=== PATIENT | male | born 1940 ===

== ENCOUNTER 2020-07-04 09:15 | Outpatient (REF) | payer MEDICARE, SELFPAY ==
[2020-07-04 10:59] LABS: Cholesterol 260 mg/dL; HDL Cholesterol 57 mg/dL; LDL Cholesterol Calculated 174 mg/dl; Triglycerides 149 mg/dL
== END 2020-07-04 09:16 | disposition home or self-care (01) ==
LOC: HO.LAB 09:15
PROVIDERS: PCP Internal Medicine; Visit Provider Internal Medicine
DX: E78.5 Hyperlipidemia, unspecified (principal)
CPT/HCPCS: 80061

== ENCOUNTER 2020-09-29 08:11 | Outpatient (REF) | payer MEDICARE, SELFPAY ==
[2020-09-29 09:43] LABS: Cholesterol 212 mg/dL; HDL Cholesterol 57 mg/dL; LDL Cholesterol Calculated 130 mg/dl; Triglycerides 126 mg/dL
== END 2020-09-29 08:12 | disposition home or self-care (01) ==
LOC: HO.LAB 08:11
PROVIDERS: PCP Internal Medicine; Visit Provider Internal Medicine
DX: E11.9 Type 2 diabetes mellitus without complications (principal)
CPT/HCPCS: 36415; 80061

== ENCOUNTER 2021-01-01 08:22 | Outpatient (REF) | payer MEDICARE, SELFPAY ==
[2021-01-01 09:36] LABS: Cholesterol 252 mg/dL; HDL Cholesterol 61 mg/dL; LDL Cholesterol Calculated 163 mg/dl; Triglycerides 144 mg/dL
== END 2021-01-01 08:23 | disposition home or self-care (01) ==
LOC: HO.LAB 08:22
PROVIDERS: PCP Internal Medicine; Visit Provider Internal Medicine
DX: E11.9 Type 2 diabetes mellitus without complications (principal)
CPT/HCPCS: 36415; 80061

== ENCOUNTER 2021-04-03 11:03 | Outpatient (REF) | payer MEDICARE, SELFPAY ==
[2021-04-03 12:25] LABS: Cholesterol 210 mg/dL; HDL Cholesterol 54 mg/dL; LDL Cholesterol Calculated 127 mg/dl; Triglycerides 146 mg/dL
== END 2021-04-03 11:04 | disposition home or self-care (01) ==
LOC: HO.LAB 11:03
PROVIDERS: PCP Internal Medicine; Visit Provider Internal Medicine
DX: E11.9 Type 2 diabetes mellitus without complications (principal)
CPT/HCPCS: 36415; 80061

== ENCOUNTER 2021-06-19 09:58 | Outpatient (REF) | payer MEDICARE, SELFPAY ==
[2021-06-19 11:29] LABS: Cholesterol 212 mg/dL; HDL Cholesterol 49 mg/dL; LDL Cholesterol Calculated 136 mg/dl; Triglycerides 135 mg/dL
== END 2021-06-19 09:59 | disposition home or self-care (01) ==
LOC: HO.LAB 09:58
PROVIDERS: PCP Internal Medicine; Visit Provider Internal Medicine
DX: E11.9 Type 2 diabetes mellitus without complications (principal)
CPT/HCPCS: 36415; 80061

== ENCOUNTER 2021-09-25 09:03 | Outpatient (REF) | payer MEDICARE, SELFPAY ==
[2021-09-25 10:32] LABS: Cholesterol 269 mg/dL; HDL Cholesterol 56 mg/dL; LDL Cholesterol Calculated 182 mg/dl; Triglycerides 158 mg/dL
== END 2021-09-25 09:04 | disposition home or self-care (01) ==
LOC: HO.LAB 09:03
PROVIDERS: PCP Internal Medicine; Visit Provider Internal Medicine
DX: E11.9 Type 2 diabetes mellitus without complications (principal)
CPT/HCPCS: 36415; 80061

== ENCOUNTER 2022-04-05 09:06 | Outpatient (REF) | payer MEDICARE, SELFPAY ==
[2022-04-05 09:22] LABS: MANUAL DIFF FLAG NO
[2022-04-05 09:45] LABS: Basophils Percent Auto 0.6 % (0-2); Eosinophils Absolute Auto 0.2 X10*3/uL (0.0-0.4); Eosinophils Percent Auto 3.6 % (0-4); Hematocrit 42.2 % (42.0-52.0); Hemoglobin 14.1 g/dl (14.0-18.0); Imm Gran Abs Auto 0.02 X10*3/uL (0.00-0.03); Imm Gran Pct Auto 0.4 % (0.0-0.4); Lymphocytes Percent Auto 37.9 % (20-40); Mean Corpuscular HGB Conc 33.4 g/dl (31.0-36.0); Mean Corpuscular Hemoglobin 32.2 pg (27.0-33.0); Mean Corpuscular Volume 96.3 fL (80.0-98.0); Monocytes Absolute Auto 0.4 X10*3/uL (0.1-1.2); Monocytes Percent Auto 6.8 % (2-11); Neutrophils Absolute Auto 2.7 x10*3/uL (2.0-8.3); Neutrophils Percent Auto 50.7 % (45-73); Platelet Count 293 X10*3/uL (160-400); Red Blood Count 4.38 X10*6/uL (4.60-5.80); Red Cell Distribution Width 12.5 % (11.0-16.0); White Blood Count 5.3 X10*3/uL (4.8-10.8)
[2022-04-05 10:14] LABS: Alanine Aminotransferase 18 U/L (0-40); Albumin Level 4.2 g/dL (3.5-5.0); Alkaline Phosphatase 40 U/L (39-117); Anion Gap 13 (12-20); Aspartate Amino Transferase 23 U/L (5-37); Bilirubin Total 0.7 mg/dL (0.0-1.0); Blood Urea Nitrogen 14 mg/dL (9-16); Calcium 8.8 mg/dL (8.4-10.2); Carbon Dioxide 25 mmol/L (22-29); Chloride 106 mmol/L (96-108); Cholesterol 203 mg/dL; Estimated Glomerular Filt Rate > 60; Glucose Fasting 92 mg/dL (60-99); HDL Cholesterol 38 mg/dL; LDL Cholesterol Calculated 137 mg/dl; Potassium 4.5 mmol/L (3.3-5.1); Sodium 139 mmol/L (135-145); Total Protein 6.9 g/dL (6.5-8.0); Triglycerides 143 mg/dL
== END 2022-04-05 09:07 | disposition home or self-care (01) ==
LOC: HO.LAB 09:06
PROVIDERS: PCP Internal Medicine; Visit Provider Internal Medicine
DX: Z00.00 Encounter for general adult medical examination without abnormal findings (principal); Z13.0 Encounter for screening for diseases of the blood and blood-forming organs and certain disorders involving the immune mechanism
CPT/HCPCS: 36415; 80053; 80061; 85025

== ENCOUNTER 2022-08-02 08:36 | Outpatient (REF) | payer MEDICARE, SELFPAY ==
[2022-08-02 09:28] LABS: Cholesterol 229 mg/dL; HDL Cholesterol 48 mg/dL; LDL Cholesterol Calculated 151 mg/dl; Triglycerides 151 mg/dL
== END 2022-08-02 08:37 | disposition home or self-care (01) ==
LOC: HO.LAB 08:36
PROVIDERS: PCP Internal Medicine; Visit Provider Internal Medicine
DX: E78.5 Hyperlipidemia, unspecified (principal)
CPT/HCPCS: 36415; 80061

== ENCOUNTER 2022-10-22 08:08 | Outpatient (REF) | payer MEDICARE, SELFPAY ==
[2022-10-22 09:08] LABS: Cholesterol 258 mg/dL; HDL Cholesterol 49 mg/dL; LDL Cholesterol Calculated 181 mg/dl; Triglycerides 140 mg/dL
== END 2022-10-22 08:09 | disposition home or self-care (01) ==
LOC: HO.LAB 08:08
PROVIDERS: PCP Internal Medicine; Visit Provider Internal Medicine
DX: E78.5 Hyperlipidemia, unspecified (principal)
CPT/HCPCS: 36415; 80061

== ENCOUNTER 2022-12-04 09:49 | Day surgery (SDC) | payer OTHER, SELFPAY ==
--- NOTE | 2022-12-03 10:43 | HO.ANESPROP2 ---
Documented by User: Alise Curiel NP 12/03/22 10:44 HPI - Anesthesia Eval Consult details Narrative: 82yo M for Colonoscopy PMFSH Active Problems Active Problems: All Active Problems (Updated 12/03/22 @ 08:40 by Reina Rodriguez) Hyperlipidemia (Acute) Encounter for annual wellness visit (AWV) in Medicare patient (Acute) Past Medical History Medical History (Updated 12/03/22 @ 08:40 by Reina Rodriguez) Kidney stones Family History Family History Father Hypertension Parkinsons disease Mother No problems noted. Surgical History Surgical History (Updated 12/03/22 @ 08:40 by Reina Rodriguez) Corneal transplant status H/O colonoscopy History of tonsillectomy Social History Social History Housing: House Alcohol intake: current Alcohol intake frequency: a few times a week Patient Tobacco Use Status: Never used Tobacco e-Cigarette/Vaping Use: Never Used Second Hand Smoke Exposure: No Use of substances other than those prescribed or required for medical reasons: No Are you DNR?: No Advance Directives: No Advance Directives Information Provided: Yes service: No Current occupational status: retired Cognitive needs: No Hearing needs: No Vision needs: Yes (contacts) Meds Allergies Allergy/AdvReac Type Severity Reaction Status Date / Time brimonidine Allergy Unknown Swelling Verified 12/04/22 10:27 lovastatin Allergy Unknown Muscle Verified 12/04/22 10:27 cramps rosuvastatin Allergy Unknown Muscle Verified 12/04/22 10:27 cramps Home Medications Medication Instructions Recorded Confirmed Last Taken Type dorzolamide 22.3 mg-timolol 6.8 1 drp ophthalmic (eye) BID 07/12/20 12/04/22 12/04/22 06:00 History mg/mL eye drops fluorometholone 0.25 % eye 1 drp ophthalmic-Right Q6H 07/12/20 12/04/22 12/04/22 06:00 History drops,suspension (FML Forte) tafluprost (PF) 0.0015 % eye drops 1 drp ophthalmic (eye) DAILY 07/12/20 12/04/22 12/04/22 06:00 History in a dropperette cyclosporine 0.05 % eye drops 1 drp ophthalmic (eye) Q12H 10/05/20 12/04/22 12/04/22 06:00 History aspirin 81 mg tablet,delayed 81 mg PO DAILY 04/08/22 12/04/22 11/27/22 History release (Adult Low Dose Aspirin) triamcinolone acetonide 0.1 % 1 appl topical BID 07/22/22 12/04/22 Unknown History topical ointment Exam Exam Date and Time: December 03, 2022 1043 Pertinent Lab Results Pertinent Lab Results: Laboratory Tests 04/05/22 04/05/22 09:21 09:21 WBC 5.3 Hgb 14.1 Hct 42.2 Plt Count 293 Sodium 139 Potassium 4.5 Chloride 106 Carbon Dioxide 25 BUN 14 Creatinine 1.16 Assessment and Plan Assessment Anesthesia Assessment: Chart Reviewed Documented by User: Michael Sunshine MD 12/04/22 16:19 [facility] Past Medical History Medical History (Updated 12/03/22 @ 08:40 by Reina Rodriguez) Kidney stones Functional capacity: independent ambulation Family History Family History Father Hypertension Parkinsons disease Mother No problems noted. Family history of problems with anesthesia: No Surgical History Surgical History (Updated 12/03/22 @ 08:40 by Reina Rodriguez) Corneal transplant status H/O colonoscopy History of tonsillectomy History of Problems with Anesthesia: No Social History Social History Housing: House Alcohol intake: current Alcohol intake frequency: a few times a week Patient Tobacco Use Status: Never used Tobacco e-Cigarette/Vaping Use: Never Used Second Hand Smoke Exposure: No Use of substances other than those prescribed or required for medical reasons: No Are you DNR?: No Advance Directives: No Advance Directives Information Provided: Yes service: No Current occupational status: retired Cognitive needs: No Hearing needs: No Vision needs: Yes (contacts) Meds Allergies Allergy/AdvReac Type Severity Reaction Status Date / Time brimonidine Allergy Unknown Swelling Verified 12/04/22 10:27 lovastatin Allergy Unknown Muscle Verified 12/04/22 10:27 cramps rosuvastatin Allergy Unknown Muscle Verified 12/04/22 10:27 cramps Home Medications Medication Instructions Recorded Confirmed Last Taken Type dorzolamide 22.3 mg-timolol 6.8 1 drp ophthalmic (eye) BID 07/12/20 12/04/22 12/04/22 06:00 History mg/mL eye drops fluorometholone 0.25 % eye 1 drp ophthalmic-Right Q6H 07/12/20 12/04/22 12/04/22 06:00 History drops,suspension (FML Forte) tafluprost (PF) 0.0015 % eye drops 1 drp ophthalmic (eye) DAILY 07/12/20 12/04/22 12/04/22 06:00 History in a dropperette cyclosporine 0.05 % eye drops 1 drp ophthalmic (eye) Q12H 10/05/20 12/04/22 12/04/22 06:00 History aspirin 81 mg tablet,delayed 81 mg PO DAILY 04/08/22 12/04/22 11/27/22 History release (Adult Low Dose Aspirin) triamcinolone acetonide 0.1 % 1 appl topical BID 07/22/22 12/04/22 Unknown History topical ointment Exam Airway Mallampati Class: III TM Dist: >3cm Neck ROM: Full Loose/Missing/Broken Teeth: Yes (Chipped/stained front upper ) Heart: S1,S2 Lungs: b/l breath sounds Assessment and Plan Assessment Anesthesia Assessment: Anesthesia Plan Discussed Final Anesthetic Review Family History of Problems with Anesthesia: No History of Problems with Anesthesia: No NPO: Yes ASA Class: II Final Preanesthetic Review: Meds/Allgs Chart Reviewed, Consent Obtained/Reviewed and Anes Risks/Benef Reviewed Patient Risk: Intermediate Procedure Risk: Intermediate Anesthetic Plan Anesthetic Plan: MAC: Disposition: Standard PACU
[2022-12-04 10:32] VITALS: BMI 27.9
[2022-12-04 10:39] VITALS: BP 189/92; PULSE 67; RESP 16; TEMP 36.8; O2SAT 100
[2022-12-04] MEDS: Lactated Ringers 1,000 ML 100 ML IVCONT (10:51)
--- NOTE | 2022-12-04 10:55 | PC.NURSE ---
Patient arrived. Wearing two contact lenses that he is requesting not to remove. Patient states I fall asleep with them sometimes with no issues . Dr. Sunshine at bedside. Okay per him for patient to wear lenses into OR. OR nurse made aware.
[2022-12-04 12:47] VITALS: BP 126/68; PULSE 61; RESP 16; TEMP 36.6; O2SAT 98
--- NOTE | 2022-12-04 12:48 | P.BOP_ITS ---
Brief Operative Note Date of Service: 12/04/22 Pre-op diagnosis: Screening Post-op diagnosis: other (Polyps) Procedure: Colonoscopy to the cecum and TI with hot snare polypectomy x 2 Surgeon: Ez Jimenez Anesthesia: MAC Was an Petroleum Production Engineer used for this Procedure?: No Estimated blood loss (mL): 0 Pathology: none sent Condition: stable Disposition: PACU
[2022-12-04 13:02] VITALS: BP 138/75; PULSE 52; RESP 16; TEMP 36.6; O2SAT 98
--- NOTE | 2022-12-04 23:44 | OP_ITS ---
SURGEON: Ez Jimenez MD PREOPERATIVE DIAGNOSIS: POSTOPERATIVE DIAGNOSIS: PROCEDURE PERFORMED: Colonoscopy to the cecum and terminal ileum with hot snare polypectomy x 2. ESTIMATED BLOOD LOSS: COMPLICATIONS: ANESTHESIA: Monitored anesthesia care. ASSISTANTS: SPECIMENS: PREOPERATIVE DIAGNOSES: Personal history of tubular adenoma of the colon and colorectal cancer screening. POSTOPERATIVE DIAGNOSES: Personal history of tubular adenoma of the colon, colorectal cancer screening, small colon polyps, diverticulosis, and internal hemorrhoids. INDICATION: The patient presents for evaluation of colorectal cancer screening and personal history of tubular adenoma of colon. Full consent has been obtained from him for this, including risks of bleeding and perforation. DESCRIPTION OF PROCEDURE: The patient was placed in the left lateral decubitus position. The digital rectal exam revealed no abnormalities. The Olympus videopediatric colonoscope was entered into the rectum and advanced easily to the cecum. Once in the cecum, I did identify normal-appearing cecal pouch with appendiceal orifice and a normal-appearing ileocecal valve. The terminal ileum was cannulated and appeared normal. The scope was withdrawn back in the colon. The entire cecum and ileocecal valve appeared normal. The scope was slowly withdrawn assessing all mucosal surfaces carefully. Preparation was excellent. In the proximal transverse colon, there were two flat polyps. One was approximately 5 mm in diameter and the other was approximately 8 mm in diameter. These were both removed by hot snare polypectomy, but specimens were not recovered. However, both polypectomy sites appeared clean, without any sign of residual polyp nor bleeding. I did not visualize any other polyps, colitis, nor angiodysplasia. There was a mild amount of sigmoid diverticulosis. In the rectum, the scope was retroflexed visualizing internal hemorrhoids, but no other pathology. The rectal mucosa appeared normal. The scope was straightened and withdrawn from the patient. He tolerated the procedure well and was returned to the recovery area in stable condition. IMPRESSION: 1. Small colon polyps. 2. Diverticulosis. 3. Internal hemorrhoids. PLAN: Given his age and these minimal findings, I do not think he will need any further screening colonoscopies. He was advised not to use any aspirin and NSAIDs for 1 week. He will otherwise see me on a p.r.n. basis. MD ALEJANDRA Dyson/GAGANDEEP / [id number] [facility]ITALLisandro
== END 2022-12-04 13:15 | disposition home or self-care (01) ==
PROVIDERS: PCP Internal Medicine; Visit Provider Internal Medicine
PROC: 0DJD8ZZ Inspection of Lower Intestinal Tract, Via Natural or Artificial Opening Endoscopic (ICD-10-PCS; CPT 45378; principal; 2022-12-04 11:40)
DX: Z12.11 Encounter for screening for malignant neoplasm of colon (principal); Z86.010 Personal history of colon polyps; K63.5 Polyp of colon; K57.30 Diverticulosis of large intestine without perforation or abscess without bleeding; K64.8 Other hemorrhoids; E78.5 Hyperlipidemia, unspecified; N20.0 Calculus of kidney; Z94.7 Corneal transplant status; Z79.82 Long term (current) use of aspirin; Z79.899 Other long term (current) drug therapy; Z86.16 Personal history of COVID-19
CPT/HCPCS: 45385

== ENCOUNTER 2023-01-24 08:27 | Outpatient (REF) | payer MEDICARE, SELFPAY ==
[2023-01-24 08:41] LABS: MANUAL DIFF FLAG NO
[2023-01-24 09:16] LABS: Basophils Percent Auto 0.6 % (0-2); Eosinophils Absolute Auto 0.2 X10*3/uL (0.0-0.4); Eosinophils Percent Auto 2.7 % (0-4); Hematocrit 44.9 % (42.0-52.0); Hemoglobin 15.1 g/dl (14.0-18.0); Imm Gran Abs Auto 0.04 X10*3/uL (0.00-0.03); Imm Gran Pct Auto 0.6 % (0.0-0.4); Lymphocytes Absolute Auto 2.1 X10*3/uL (1.2-4.9); Lymphocytes Percent Auto 31.8 % (20-40); Mean Corpuscular HGB Conc 33.6 g/dl (31.0-36.0); Mean Corpuscular Hemoglobin 32.4 pg (27.0-33.0); Mean Corpuscular Volume 96.4 fL (80.0-98.0); Mean Platelet Volume 11.1 fL (9.4-12.4); Monocytes Absolute Auto 0.4 X10*3/uL (0.1-1.2); Monocytes Percent Auto 5.9 % (2-11); Neutrophils Absolute Auto 3.8 x10*3/uL (2.0-8.3); Neutrophils Percent Auto 58.4 % (45-73); Platelet Count 288 X10*3/uL (160-400); Red Blood Count 4.66 X10*6/uL (4.60-5.80); Red Cell Distribution Width 12.5 % (11.0-16.0); White Blood Count 6.6 X10*3/uL (4.8-10.8)
[2023-01-24 09:51] LABS: Alanine Aminotransferase 22 U/L (0-40); Albumin Level 4.3 g/dL (3.5-5.0); Alkaline Phosphatase 37 U/L (39-117); Anion Gap 14 (12-20); Aspartate Amino Transferase 22 U/L (5-37); Bilirubin Total 0.6 mg/dL (0.0-1.0); Blood Urea Nitrogen 17 mg/dL (9-16); Calcium 9.3 mg/dL (8.4-10.2); Carbon Dioxide 25 mmol/L (22-29); Chloride 105 mmol/L (96-108); Cholesterol 233 mg/dL; Estimated Glomerular Filt Rate 57; Glucose Fasting 108 mg/dL (60-99); HDL Cholesterol 52 mg/dL; LDL Cholesterol Calculated 155 mg/dl; Potassium 4.5 mmol/L (3.3-5.1); Sodium 139 mmol/L (135-145); Total Protein 6.8 g/dL (6.5-8.0); Triglycerides 133 mg/dL
== END 2023-01-24 08:28 | disposition home or self-care (01) ==
LOC: HO.LAB 08:27
PROVIDERS: PCP Internal Medicine; Visit Provider Internal Medicine
DX: N28.9 Disorder of kidney and ureter, unspecified (principal); E78.5 Hyperlipidemia, unspecified; D64.9 Anemia, unspecified
CPT/HCPCS: 36415; 80053; 80061; 85025

== ENCOUNTER 2023-02-25 08:25 | Outpatient (REF) | payer MEDICARE, SELFPAY ==
[2023-02-25 09:32] LABS: Cholesterol 199 mg/dL; HDL Cholesterol 41 mg/dL; LDL Cholesterol Calculated 133 mg/dl; Triglycerides 127 mg/dL
== END 2023-02-25 08:26 | disposition home or self-care (01) ==
LOC: HO.LAB 08:25
PROVIDERS: PCP Internal Medicine; Visit Provider Internal Medicine
DX: E78.5 Hyperlipidemia, unspecified (principal)
CPT/HCPCS: 36415; 80061

== ENCOUNTER 2023-04-30 09:45 | Outpatient (AMB) | payer MEDICARE, SELFPAY ==
--- NOTE | 2023-04-30 09:51 | A.OFFPC_ITS ---
Vital Signs 04/30/23 09:52 Height 5 ft 6 in Weight 178 lb 2 oz BMI 28.7 BP 118/70 Blood Pressure Location Lt brachial Position Sitting Pulse 54 Pulse Source Pulse Oximeter Pulse Oximetry (%) 96 Oxygen Delivery Method Room Air Intake Visit Reasons: 3 month f/u Intake Note: Patient is here to follow up on Hyperlipidemia. Animal Care Technician Required: No Heavy Machinery Assembler: Not Required per policy Accompanied by: Self / Same As Patient Allergies brimonidine Allergy (Unknown, Verified 04/30/23 09:51) Swelling lovastatin Allergy (Unknown, Verified 04/30/23 09:51) Muscle cramps rosuvastatin Allergy (Unknown, Verified 04/30/23 09:51) Muscle cramps Medication List - Last Reconciled 04/30/23 by Eliseo Robledo MD aspirin (Adult Low Dose Aspirin) 81 mg PO DAILY cyclosporine 0.05% 1 drp ophthalmic (eye) Q12H dorzolamide-timolol 22.3-6.8 mg/mL 1 drp ophthalmic (eye) BID fenofibrate 160 mg PO DAILY fluorometholone 0.25% (FML Forte) 1 drp ophthalmic-Right Q6H tafluprost (PF) 1 drp ophthalmic (eye) DAILY triamcinolone acetonide 0.1% 1 appl topical BID Tobacco use date assessed: 04/30/23 Fall risk assessment: No Falls in past year Last assessed Fall Risk: 04/30/23 Dental Screening Dental Screen Date: 04/30/23 Did you have a dental visit in the last 12 months?: Yes Did you have a dental problem in the last 6 months where you did not have access to dental care?: No Was dental information given to patient?: Patient has dentist HPI 3 month f/u HPI Details hyperlipidemia on rx; [facility] Medical History (Updated 12/03/22 @ 08:40 by Reina Rodriguez) Kidney stones Surgical History Corneal transplant status H/O colonoscopy History of tonsillectomy Family History Father Hypertension Parkinsons disease Mother No problems noted. Social History Housing: House Alcohol intake: current Alcohol intake frequency: a few times a week Patient Tobacco Use Status: Never used Tobacco e-Cigarette/Vaping Use: Never Used Second Hand Smoke Exposure: No service: No Current occupational status: retired Cognitive needs: No Hearing needs: No Vision needs: Yes (contacts) Questionnaire PHQ-9 Over the last 2 weeks, how often have you been bothered by any of the following problems? Depression Screening Interpretation: Negative Source: Developed by Drs. Ez Martinez, Nanci Choudhury, Gilberto Becerril and colleagues, with an educational сергей from [employer]. Thrive Questionnaire Date Thrive assessed: 10/23/22 Currently or been in a relationship where the following occur: no concerns reported AMBER-7 AMB Questionnaire AMBER-7 Date AMBER - 7 assessed: 10/23/22 Source: Developed by Drs. Ez Martinez, Nanci Choudhury, Gilberto Becerril and colleagues, with an educational сергей from [employer]. Review of Systems Const Denies chills, Denies headache(s) and Denies weight loss ENT Denies headache(s) Card Denies chest pain, Denies syncope, Denies irregular heart rhythm and Denies dyspnea Resp Denies chest congestion, Denies cough and Denies dyspnea GI Denies abdominal pain, Denies change in stool character, Denies nausea and Denies vomiting Musc Denies deformity and Denies joint swelling Neuro Denies syncope and Denies headache(s) Physical exam (Primary Care) Vital Signs: Last Vital Signs Pulse 54 04/30/23 09:52 BP 118/70 04/30/23 09:52 Pulse Ox 96 04/30/23 09:52 Oxygen Delivery Method Room Air 04/30/23 09:52 BMI result Body Mass Index 28.7 Tobacco/Smoking Status: Tobacco use Status Tobacco use date assessed 04/30/23 04/30/23 09:57 Patient Tobacco Use Status Never used Tobacco 04/30/23 09:57 Tobacco use type 04/05/21 11:01 e-Cigarette/Vaping Use Never Used 04/30/23 09:57 Depression Screening Interpretation: Negative Thrive Assessment: Date of Thrive Assessment Date Thrive assessed 10/23/22 04/30/23 09:57 Currently or been in a relationship where the following occur: no concerns reported Const General: cooperative, healthy appearing and comfortable Resp Effort & Inspection: normal respiratory effort Auscultation: clear to auscultation bilaterally Percussion: percussion normal Cardio Jugular venous distension: no JVD Rate: regular rate Rhythm: regular rhythm GI Inspection: Yes normal to inspection Assessment and Plan Assessment & Plan (1) Hyperlipidemia: Code(s): E78.5 - Hyperlipidemia, unspecified Plan: stable; same rx Orders: Orders Comprehensive [place]. Panel Fast Today N28.9 - Disorder of kidney and ureter, unspecified Lipid Panel Today E78.5 - Hyperlipidemia, unspecified Complete Blood Count Auto Diff Today D64.9 - Anemia, unspecified Coding Level of Care Code Est Pt Level 3 (27668) Diagnoses Hyperlipidemia E78.5
[2023-04-30 09:52] VITALS: BP 118/70; PULSE 54; O2SAT 96; BMI 28.7
== END 2023-04-30 10:21 | disposition home or self-care (01) ==
PROVIDERS: PCP Internal Medicine; Visit Provider Internal Medicine
DX: E78.5 Hyperlipidemia, unspecified (principal)
CPT/HCPCS: 99213

== ENCOUNTER 2023-08-19 08:15 | Outpatient (REF) | payer MEDICARE, SELFPAY ==
[2023-08-19 08:26] LABS: MANUAL DIFF FLAG NO
[2023-08-19 08:44] LABS: Basophils Absolute Auto 0.1 X10*3/uL (0.0-0.2); Basophils Percent Auto 0.7 % (0-2); Eosinophils Absolute Auto 0.2 X10*3/uL (0.0-0.4); Eosinophils Percent Auto 2.8 % (0-4); Hemoglobin 15.1 g/dl (14.0-18.0); Imm Gran Abs Auto 0.03 X10*3/uL (0.00-0.03); Imm Gran Pct Auto 0.4 % (0.0-0.4); Lymphocytes Absolute Auto 2.1 X10*3/uL (1.2-4.9); Mean Corpuscular HGB Conc 34.3 g/dl (31.0-36.0); Mean Corpuscular Hemoglobin 33.1 pg (27.0-33.0); Mean Corpuscular Volume 96.5 fL (80.0-98.0); Mean Platelet Volume 10.6 fL (9.4-12.4); Monocytes Absolute Auto 0.5 X10*3/uL (0.1-1.2); Monocytes Percent Auto 6.5 % (2-11); Neutrophils Absolute Auto 4.2 x10*3/uL (2.0-8.3); Neutrophils Percent Auto 59.6 % (45-73); Platelet Count 310 X10*3/uL (160-400); Red Blood Count 4.56 X10*6/uL (4.60-5.80); Red Cell Distribution Width 12.7 % (11.0-16.0); White Blood Count 7.1 X10*3/uL (4.8-10.8)
[2023-08-19 09:19] LABS: Alanine Aminotransferase 18 U/L (0-40); Albumin Level 4.1 g/dL (3.5-5.0); Alkaline Phosphatase 53 U/L (39-117); Anion Gap 12 (12-20); Aspartate Amino Transferase 21 U/L (5-37); Bilirubin Total 0.5 mg/dL (0.0-1.0); Blood Urea Nitrogen 15 mg/dL (9-16); Calcium 9.1 mg/dL (8.4-10.2); Carbon Dioxide 26 mmol/L (22-29); Chloride 105 mmol/L (96-108); Cholesterol 230 mg/dL (<200); Estimated Glomerular Filt Rate > 60; Glucose Fasting 117 mg/dL (60-99); HDL Cholesterol 43 mg/dL (>40); LDL Cholesterol Calculated 149 mg/dL (<100); Potassium 4.3 mmol/L (3.3-5.1); Sodium 139 mmol/L (135-145); Total Protein 7.2 g/dL (6.5-8.0); Triglycerides 193 mg/dL (<150)
== END 2023-08-19 08:16 | disposition home or self-care (01) ==
LOC: HO.LAB 08:15
PROVIDERS: PCP Internal Medicine; Visit Provider Internal Medicine
DX: E78.5 Hyperlipidemia, unspecified (principal); D64.9 Anemia, unspecified; N28.9 Disorder of kidney and ureter, unspecified
CPT/HCPCS: 36415; 80053; 80061; 85025

== ENCOUNTER 2023-08-25 11:35 | Outpatient (AMB) | payer MEDICARE, SELFPAY ==
[2023-08-25 11:36] VITALS: BP 140/90; PULSE 53; O2SAT 100; BMI 29.0
--- NOTE | 2023-08-25 11:36 | A.OFFPC_ITS ---
Vital Signs 08/25/23 11:36 Height 5 ft 6 in Weight 180 lb BMI 29.0 BP 140/90 H Blood Pressure Location Lt brachial Position Sitting Pulse 53 Pulse Source Pulse Oximeter Pulse Oximetry (%) 100 Oxygen Delivery Method Room Air Intake Visit Reasons: 3M Follow up Coil Winding Supervisor Required: No Nut Steamer: Not Required per policy Accompanied by: Self / Same As Patient Allergies brimonidine Allergy (Unknown, Verified 08/25/23 11:37) Swelling lovastatin Allergy (Unknown, Verified 08/25/23 11:37) Muscle cramps rosuvastatin Allergy (Unknown, Verified 08/25/23 11:37) Muscle cramps Medication List - Last Reconciled 08/25/23 by Eliseo Robledo MD aspirin (Adult Low Dose Aspirin) 81 mg PO DAILY cyclosporine 0.05% 1 drp ophthalmic (eye) Q12H dorzolamide-timolol 22.3-6.8 mg/mL 1 drp ophthalmic (eye) BID fenofibrate 160 mg PO DAILY fluorometholone 0.25% (FML Forte) 1 drp ophthalmic-Right Q6H tafluprost (PF) 0.0015% 1 drp ophthalmic (eye) DAILY triamcinolone acetonide 0.1% 1 appl topical BID Tobacco use date assessed: 04/30/23 Fall risk assessment: No Falls in past year Last assessed Fall Risk: 08/25/23 Dental Screening Dental Screen Date: 08/25/23 Did you have a dental visit in the last 12 months?: Yes Did you have a dental problem in the last 6 months where you did not have access to dental care?: No Was dental information given to patient?: Patient has dentist HPI 3M Follow up HPI Details hyperlip on rx; dietary indiscretion PFSH Medical History Kidney stones Surgical History H/O colonoscopy Corneal transplant status History of tonsillectomy Family History Father Hypertension Parkinsons disease Mother No problems noted. Social History Housing: House Alcohol intake: current Alcohol intake frequency: a few times a week Patient Tobacco Use Status: Never used Tobacco e-Cigarette/Vaping Use: Never Used Second Hand Smoke Exposure: No service: No Current occupational status: retired Cognitive needs: No Hearing needs: No Vision needs: Yes (contacts) Questionnaire Thrive Questionnaire Date Thrive assessed: 10/23/22 AMBER-7 AMB Questionnaire AMBER-7 Date AMBER - 7 assessed: 10/23/22 Source: Developed by Drs. Ez Martinez, Nanci Choudhury, Gilberto Becerril and colleagues, with an educational сергей from [employer]. Review of Systems Const Denies chills, Denies headache(s) and Denies weight loss ENT Denies headache(s) Card Denies chest pain, Denies syncope, Denies irregular heart rhythm and Denies dyspnea Resp Denies chest congestion, Denies cough and Denies dyspnea GI Denies abdominal pain, Denies change in stool character, Denies nausea and Denies vomiting Musc Denies deformity and Denies joint swelling Neuro Denies syncope and Denies headache(s) Physical exam (Primary Care) Vital Signs: Last Vital Signs Pulse 53 08/25/23 11:36 BP 140/90 H 08/25/23 11:36 Pulse Ox 100 08/25/23 11:36 Oxygen Delivery Method Room Air 08/25/23 11:36 BMI result Body Mass Index 29.0 Tobacco/Smoking Status: Tobacco use Status Tobacco use date assessed 04/30/23 08/25/23 11:37 Patient Tobacco Use Status Never used Tobacco 08/25/23 11:37 Tobacco use type 04/05/21 11:01 e-Cigarette/Vaping Use Never Used 08/25/23 11:37 Thrive Assessment: Date of Thrive Assessment Date Thrive assessed 10/23/22 08/25/23 11:37 Const General: cooperative, comfortable, no acute distress and alert Neck Neck: Yes no lymphadenopathy Thyroid: Thyroid normal Resp Effort & Inspection: normal respiratory effort Auscultation: clear to auscultation bilaterally Percussion: percussion normal Cardio Jugular venous distension: no JVD Palpation: normal PMI Rate: regular rate Rhythm: regular rhythm Heart sounds: S1 normal heart sound present and S2 normal heart sound present GI Inspection: Yes normal to inspection Palpation (GI): No hepatosplenomegaly present Skin General skin exam: no rashes or lesions noted Extrem General: Yes no clubbing, cyanosis or edema Assessment and Plan Assessment & Plan (1) Hyperlipidemia: Code(s): E78.5 - Hyperlipidemia, unspecified Plan: stable; same rx Orders: Orders Lipid Panel Today E78.5 - Hyperlipidemia, unspecified Coding Level of Care Code Est Pt Level 3 (48914) Diagnoses Hyperlipidemia E78.5
== END 2023-08-25 11:59 | disposition home or self-care (01) ==
PROVIDERS: PCP Internal Medicine; Visit Provider Internal Medicine
DX: E78.5 Hyperlipidemia, unspecified (principal)
CPT/HCPCS: 99213

== ENCOUNTER 2023-11-22 08:52 | Outpatient (REF) | payer MEDICARE, SELFPAY ==
[2023-11-22 10:18] LABS: Cholesterol 206 mg/dL (<200); HDL Cholesterol 48 mg/dL (>40); LDL Cholesterol Calculated 133 mg/dL (<100); Triglycerides 129 mg/dL (<150)
== END 2023-11-22 08:53 | disposition home or self-care (01) ==
LOC: HO.LAB 08:52
PROVIDERS: PCP Internal Medicine; Visit Provider Internal Medicine
DX: E78.5 Hyperlipidemia, unspecified (principal)
CPT/HCPCS: 36415; 80061

== ENCOUNTER 2023-11-24 08:25 | Outpatient (AMB) | payer MEDICARE, SELFPAY ==
[2023-11-24 08:43] VITALS: BP 120/70; PULSE 78; O2SAT 98; BMI 29.0
--- NOTE | 2023-11-24 08:43 | MHC.PC.OV ---
Vital Signs 11/24/23 08:43 Height 5 ft 6 in Weight 180 lb BMI 29.0 BP 120/70 Blood Pressure Location Lt brachial Position Sitting Pulse 78 Pulse Source Pulse Oximeter Pulse Oximetry (%) 98 Oxygen Delivery Method Room Air Intake Visit Reasons: 3mth f/u Community Midwife: Not Required per policy Accompanied by: Self / Same As Patient Allergies brimonidine Allergy (Unknown, Verified 11/24/23 08:43) Swelling lovastatin Allergy (Unknown, Verified 11/24/23 08:43) Muscle cramps rosuvastatin Allergy (Unknown, Verified 11/24/23 08:43) Muscle cramps Medication List - Last Reconciled 11/24/23 by Eliseo Robledo MD aspirin (Adult Low Dose Aspirin) 81 mg PO DAILY cyclosporine 0.05% 1 drp ophthalmic (eye) Q12H dorzolamide-timolol 22.3-6.8 mg/mL 1 drp ophthalmic (eye) BID fenofibrate 160 mg PO DAILY fluorometholone 0.25% (FML Forte) 1 drp ophthalmic-Right Q6H tafluprost (PF) 0.0015% 1 drp ophthalmic (eye) DAILY triamcinolone acetonide 0.1% 1 appl topical BID Tobacco use date assessed: 11/24/23 Fall risk assessment: No Falls in past year Last assessed Fall Risk: 11/24/23 Dental Screening Dental Screen Date: 11/24/23 Did you have a dental visit in the last 12 months?: Yes Did you have a dental problem in the last 6 months where you did not have access to dental care?: No Was dental information given to patient?: Patient has dentist HPI 3mth f/u HPI Details hyperlip on rx; doing well; compliant PFSH Medical History Kidney stones Surgical History H/O colonoscopy Corneal transplant status History of tonsillectomy Family History Father Hypertension Parkinsons disease Mother No problems noted. Social History Housing: House Alcohol intake: current Alcohol intake frequency: a few times a week Patient Tobacco Use Status: Never used Tobacco e-Cigarette/Vaping Use: Never Used Second Hand Smoke Exposure: No service: No Current occupational status: retired Cognitive needs: No Hearing needs: No Vision needs: Yes (contacts) Questionnaire PHQ-9 Over the last 2 weeks, how often have you been bothered by any of the following problems? 1. Little interest or pleasure in doing things: not at all 2. Feeling down, depressed, or hopeless: not at all 3. Trouble falling or staying asleep, or sleeping too much: not at all 4. Feeling tired or having little energy: not at all 5. Poor appetite or overeating: not at all 6. Feeling bad about yourself - or that you are a failure or have let yourself or your family down: not at all 7. Trouble concentrating on things, such as reading the newspaper or watching television: not at all 8. Moving or speaking so slowly that other people could have noticed. Or the opposite - being so fidgety or restless that you have been moving around a lot more than usual: not at all 9. Thoughts that you would be better off or of hurting yourself in some way: not at all Total score: 0 Source: Developed by Drs. Ez Martinez, Nanci Choudhury, Gilberto Becerril and colleagues, with an educational сергей from [employer]. Thrive Questionnaire Date Thrive assessed: 11/24/23 I am a: Patient What is your living situation today?: I have a steady place to live Within the past 12 months, did the food you bought not last and you didn't have the money to get more?: Never true Within the past 12 months, did you worry whether your food would run out before you got money to buy more?: Never true Do you have trouble paying for medicines?: No Do you have trouble getting transportation to medical appointments?: No Do you have trouble paying your heating and electricity bill?: No Do you have trouble taking care of your child, family member or friend?: No Do you have trouble with day-to-day activities such as bathing, preparing meals, shopping, managing finances, etc.?: No Are you currently unemployed and looking for a job?: No Are you interested in more education?: No Please select the resources that you would like help with: None THRIVE Score: 0 AUDIT C Alcohol Use Questionnaire (AUDIT-C) 1. How often do you have a drink containing alcohol?: 2-3 times a week 2. How many drinks containing alcohol do you have on a typical day when you are drinking?: 1 or 2 3. How often do you have six or more drinks on one occasion?: Never Total Score: 3 Score Reviewed/Action Taken: Yes AMBER-7 AMB Questionnaire AMBER-7 Date AMBER - 7 assessed: 11/24/23 Feeling nervous, anxious, or on edge: 0 = Not at all Not being able to stop or control worryin = Not at all Worrying too much about different things: 0 = Not at all Trouble relaxin = Not at all Being so restless that it is hard to sit still: 0 = Not at all Becoming easily annoyed or irritable: 0 = Not at all Feeling afraid as if something awful might happen: 0 = Not at all Total AMBER-7 score (0-4 normal; 5-9 mild; 10-14 moderate; 15-21 severe): 0 Source: Developed by Drs. Ez Martinez, Nanci Choudhury, Gilberto Becerril and colleagues, with an educational сергей from [employer]. Review of Systems Const Denies chills, Denies headache(s) and Denies weight loss ENT Denies headache(s) Card Denies chest pain, Denies syncope, Denies irregular heart rhythm and Denies dyspnea Resp Denies chest congestion, Denies cough and Denies dyspnea GI Denies abdominal pain, Denies change in stool character, Denies nausea and Denies vomiting Musc Denies deformity and Denies joint swelling Neuro Denies syncope and Denies headache(s) Physical exam (Primary Care) Vital Signs: Last Vital Signs Pulse 78 11/24/23 08:43 BP 120/70 11/24/23 08:43 Pulse Ox 98 11/24/23 08:43 Oxygen Delivery Method Room Air 11/24/23 08:43 BMI result Body Mass Index 29.0 Tobacco/Smoking Status: Tobacco use Status Tobacco use date assessed 11/24/23 11/24/23 08:48 Patient Tobacco Use Status Never used Tobacco 11/24/23 08:48 Tobacco use type 04/05/21 11:01 e-Cigarette/Vaping Use Never Used 11/24/23 08:48 PHQ-9: PHQ-9 Score PHQ-9: Total score 0 11/24/23 08:48 Thrive Assessment: Date of Thrive Assessment Date Thrive assessed 11/24/23 11/24/23 08:48 Const General: cooperative, comfortable, no acute distress and alert Neck Neck: Yes no lymphadenopathy Thyroid: Thyroid normal Resp Effort & Inspection: normal respiratory effort Auscultation: clear to auscultation bilaterally Percussion: percussion normal Cardio Jugular venous distension: no JVD Palpation: normal PMI Rate: regular rate Rhythm: regular rhythm Heart sounds: S1 normal heart sound present and S2 normal heart sound present GI Inspection: Yes normal to inspection Palpation (GI): No hepatosplenomegaly present Skin General skin exam: no rashes or lesions noted Extrem General: Yes no clubbing, cyanosis or edema Assessment and Plan Assessment & Plan (1) Hyperlipidemia: Code(s): E78.5 - Hyperlipidemia, unspecified Plan: stable; smae rx Orders: Orders Comprehensive [place]. Panel Fast Today N28.9 - Disorder of kidney and ureter, unspecified Thyroid Stimulating Hormone Today E03.9 - Hypothyroidism, unspecified Lipid Panel Today E78.5 - Hyperlipidemia, unspecified Complete Blood Count Auto Diff Today D64.9 - Anemia, unspecified Coding Level of Care Code Est Pt Level 3 (67800) Diagnoses Hyperlipidemia E78.5
== END 2023-11-24 09:07 | disposition home or self-care (01) ==
PROVIDERS: PCP Internal Medicine; Visit Provider Internal Medicine
DX: E78.5 Hyperlipidemia, unspecified (principal)
CPT/HCPCS: 99213

== ENCOUNTER 2024-02-20 08:51 | Outpatient (REF) | payer MEDICARE, SELFPAY ==
[2024-02-20 09:01] LABS: MANUAL DIFF FLAG NO
[2024-02-20 09:24] LABS: Basophils Absolute Auto 0.1 X10*3/uL (0.0-0.2); Basophils Percent Auto 0.7 % (0-2); Eosinophils Absolute Auto 0.3 X10*3/uL (0.0-0.4); Eosinophils Percent Auto 4.6 % (0-4); Hematocrit 44.7 % (42.0-52.0); Hemoglobin 15.4 g/dl (14.0-18.0); Imm Gran Abs Auto 0.02 X10*3/uL (0.00-0.03); Imm Gran Pct Auto 0.3 % (0.0-0.4); Lymphocytes Absolute Auto 2.3 X10*3/uL (1.2-4.9); Lymphocytes Percent Auto 33.8 % (20-40); Mean Corpuscular HGB Conc 34.5 g/dl (31.0-36.0); Mean Corpuscular Hemoglobin 32.6 pg (27.0-33.0); Mean Corpuscular Volume 94.7 fL (80.0-98.0); Monocytes Absolute Auto 0.4 X10*3/uL (0.1-1.2); Neutrophils Absolute Auto 3.7 x10*3/uL (2.0-8.3); Neutrophils Percent Auto 54.6 % (45-73); Platelet Count 245 X10*3/uL (160-400); Red Blood Count 4.72 X10*6/uL (4.60-5.80); Red Cell Distribution Width 12.4 % (11.0-16.0); White Blood Count 6.7 X10*3/uL (4.8-10.8)
[2024-02-20 10:05] LABS: Alanine Aminotransferase 22 U/L (0-40); Albumin Level 4.2 g/dL (3.5-5.0); Alkaline Phosphatase 48 U/L (39-117); Anion Gap 14 (12-20); Aspartate Amino Transferase 22 U/L (5-37); Bilirubin Total 0.4 mg/dL (0.0-1.0); Blood Urea Nitrogen 15 mg/dL (9-16); Calcium 9.4 mg/dL (8.4-10.2); Carbon Dioxide 23 mmol/L (22-29); Chloride 107 mmol/L (96-108); Cholesterol 227 mg/dL (<200); Estimated Glomerular Filt Rate > 60; Glucose Fasting 107 mg/dL (60-99); HDL Cholesterol 46 mg/dL (>40); LDL Cholesterol Calculated 143 mg/dL (<100); Potassium 4.2 mmol/L (3.3-5.1); Sodium 140 mmol/L (135-145); Total Protein 7.1 g/dL (6.5-8.0); Triglycerides 192 mg/dL (<150)
[2024-02-20 10:23] LABS: Thyroid Stimulating Hormone 1.37 uIU/mL (0.32-4.0)
== END 2024-02-20 08:52 | disposition home or self-care (01) ==
LOC: HO.LAB 08:51
PROVIDERS: PCP Internal Medicine; Visit Provider Internal Medicine
DX: E03.9 Hypothyroidism, unspecified (principal); E78.5 Hyperlipidemia, unspecified; N28.9 Disorder of kidney and ureter, unspecified; D64.9 Anemia, unspecified
CPT/HCPCS: 36415; 80053; 80061; 84443; 85025

== ENCOUNTER 2024-03-23 11:16 | Outpatient (AMB) | payer MEDICARE, SELFPAY ==
[2024-03-23 11:19] VITALS: BP 136/76; PULSE 47; O2SAT 98; BMI 28.6
--- NOTE | 2024-03-23 11:19 | A.OFFPC_ITS ---
Vital Signs 03/23/24 11:19 Height 5 ft 6 in Weight 177 lb BMI 28.6 BP 136/76 Blood Pressure Location Lt brachial Position Sitting Pulse 47 L Pulse Source Pulse Oximeter Pulse Oximetry (%) 98 Oxygen Delivery Method Room Air Intake Visit Reasons: 3 month f/u Countersinker Balance Screw Hole Required: No Biochemistry Technologist: Not Required per policy Accompanied by: Self / Same As Patient Allergies brimonidine Allergy (Unknown, Verified 03/23/24 11:19) Swelling lovastatin Allergy (Unknown, Verified 03/23/24 11:19) Muscle cramps rosuvastatin Allergy (Unknown, Verified 03/23/24 11:19) Muscle cramps Medication List - Last Reconciled 03/23/24 by Eliseo Robledo MD aspirin (Adult Low Dose Aspirin) 81 mg PO DAILY cyclosporine 0.05% 1 drp ophthalmic (eye) Q12H dorzolamide-timolol 22.3-6.8 mg/mL 1 drp ophthalmic (eye) BID fenofibrate 160 mg PO DAILY fluorometholone 0.25% (FML Forte) 1 drp ophthalmic-Right Q6H tafluprost (PF) 0.0015% 1 drp ophthalmic (eye) DAILY triamcinolone acetonide 0.1% 1 appl topical BID Tobacco use date assessed: 11/24/23 Fall risk assessment: No Falls in past year Last assessed Fall Risk: 03/23/24 Dental Screening Dental Screen Date: 11/24/23 HPI 3 month f/u HPI Details hyperlipidemia on rx; not compliant with diet PFSH Medical History Kidney stones Surgical History H/O colonoscopy Corneal transplant status History of tonsillectomy Family History Father Hypertension Parkinsons disease Mother No problems noted. Social History Housing: House Alcohol intake: current Alcohol intake frequency: a few times a week Patient Tobacco Use Status: Never used Tobacco e-Cigarette/Vaping Use: Never Used Second Hand Smoke Exposure: No service: No Current occupational status: retired Cognitive needs: No Hearing needs: No Vision needs: Yes (contacts) Questionnaire Thrive Questionnaire Date Thrive assessed: 11/24/23 AMBER-7 AMB Questionnaire AMBER-7 Date AMBER - 7 assessed: 11/24/23 Source: Developed by Drs. Ez Martinez, Nanci Choudhury, Gilberto Becerril and colleagues, with an educational сергей from [employer]. Review of Systems Const Denies chills, Denies headache(s) and Denies weight loss ENT Denies headache(s) Card Denies chest pain, Denies syncope, Denies irregular heart rhythm and Denies dyspnea Resp Denies chest congestion, Denies cough and Denies dyspnea GI Denies abdominal pain, Denies change in stool character, Denies nausea and Denies vomiting Musc Denies deformity and Denies joint swelling Neuro Denies syncope and Denies headache(s) Physical exam (Primary Care) Vital Signs: Last Vital Signs Pulse 47 L 03/23/24 11:19 BP 136/76 03/23/24 11:19 Pulse Ox 98 03/23/24 11:19 Oxygen Delivery Method Room Air 03/23/24 11:19 BMI result Body Mass Index 28.6 Tobacco/Smoking Status: Tobacco use Status Tobacco use date assessed 11/24/23 03/23/24 11:24 Patient Tobacco Use Status Never used Tobacco 03/23/24 11:24 Tobacco use type 04/05/21 11:01 e-Cigarette/Vaping Use Never Used 03/23/24 11:24 Thrive Assessment: Date of Thrive Assessment Date Thrive assessed 11/24/23 03/23/24 11:24 Const General: cooperative, comfortable, no acute distress and alert Neck Neck: Yes no lymphadenopathy Thyroid: Thyroid normal Resp Effort & Inspection: normal respiratory effort Auscultation: clear to auscultation bilaterally Percussion: percussion normal Cardio Jugular venous distension: no JVD Palpation: normal PMI Rate: regular rate Rhythm: regular rhythm Heart sounds: S1 normal heart sound present and S2 normal heart sound present GI Inspection: Yes normal to inspection Palpation (GI): No hepatosplenomegaly present Skin General skin exam: no rashes or lesions noted Extrem General: Yes no clubbing, cyanosis or edema Assessment and Plan Assessment & Plan (1) Hyperlipidemia: Code(s): E78.5 - Hyperlipidemia, unspecified Plan: improve diet Orders: Orders Lipid Panel Today Z13.220 - Encounter for screening for lipoid disorders Coding Level of Care Code Est Pt Level 3 (04055) Diagnoses Hyperlipidemia E78.5
== END 2024-03-23 11:40 | disposition home or self-care (01) ==
PROVIDERS: PCP Internal Medicine; Visit Provider Internal Medicine
DX: E78.5 Hyperlipidemia, unspecified (principal)
CPT/HCPCS: 99213

== ENCOUNTER 2024-07-15 08:35 | Outpatient (REF) | payer MEDICARE, SELFPAY ==
[2024-07-15 09:59] LABS: Cholesterol 206 mg/dL (<200); HDL Cholesterol 38 mg/dL (>40); LDL Cholesterol Calculated 140 mg/dL (<100); Triglycerides 143 mg/dL (<150)
== END 2024-07-15 08:36 | disposition home or self-care (01) ==
LOC: HO.LAB 08:35
PROVIDERS: PCP Internal Medicine; Visit Provider Internal Medicine
DX: Z13.220 Encounter for screening for lipoid disorders (principal)
CPT/HCPCS: 36415; 80061

== ENCOUNTER 2024-07-19 08:44 | Outpatient (AMB) | payer MEDICARE, SELFPAY ==
[2024-07-19 08:50] VITALS: BP 136/72; PULSE 52; O2SAT 96; BMI 28.4
--- NOTE | 2024-07-19 08:50 | A.OFFPC_ITS ---
Vital Signs 07/19/24 08:50 Height 5 ft 6 in Weight 176 lb BMI 28.4 BP 136/72 Blood Pressure Location Lt brachial Position Sitting Pulse 52 Pulse Source Pulse Oximeter Pulse Oximetry (%) 96 Oxygen Delivery Method Room Air Intake Visit Reasons: 3mth f/u Filter Tip Catcher Required: No Accompanied by: Self / Same As Patient Allergies brimonidine Allergy (Unknown, Verified 07/19/24 08:50) Swelling lovastatin Allergy (Unknown, Verified 07/19/24 08:50) Muscle cramps rosuvastatin Allergy (Unknown, Verified 07/19/24 08:50) Muscle cramps Medication List - Last Reconciled 07/19/24 by Eliseo Robledo MD aspirin (Adult Low Dose Aspirin) 81 mg PO DAILY cyclosporine 0.05% 1 drp ophthalmic (eye) Q12H dorzolamide-timolol 22.3-6.8 mg/mL 1 drp ophthalmic (eye) BID fenofibrate 160 mg PO DAILY fluorometholone 0.25% (FML Forte) 1 drp ophthalmic-Right Q6H tafluprost (PF) 0.0015% 1 drp ophthalmic (eye) DAILY triamcinolone acetonide 0.1% 1 appl topical BID Tobacco use date assessed: 11/24/23 Fall risk assessment: No Falls in past year Last assessed Fall Risk: 07/19/24 Dental Screening Dental Screen Date: 11/24/23 HPI 3mth f/u HPI Details hyperlipidmia on rx; doing well; compliant PFSH Medical History Kidney stones Surgical History H/O colonoscopy Corneal transplant status History of tonsillectomy Family History Father Hypertension Parkinsons disease Mother No problems noted. Social History Housing: House Alcohol intake: current Alcohol intake frequency: a few times a week Patient Tobacco Use Status: Never used Tobacco Tobacco use type: Cigarette e-Cigarette/Vaping Use: Never Used Second Hand Smoke Exposure: No service: No Current occupational status: retired Cognitive needs: No Hearing needs: No Vision needs: Yes (contacts) Questionnaire Thrive Questionnaire Date Thrive assessed: 11/24/23 AMBER-7 AMB Questionnaire AMBER-7 Date AMBER - 7 assessed: 11/24/23 Source: Developed by Drs. Ez Martienz, Nanci Choudhury, Gilberto Becerril and colleagues, with an educational сергей from [employer]. Review of Systems Const Denies chills, Denies headache(s) and Denies weight loss ENT Denies headache(s) Card Denies chest pain, Denies syncope, Denies irregular heart rhythm and Denies dyspnea Resp Denies chest congestion, Denies cough and Denies dyspnea GI Denies abdominal pain, Denies change in stool character, Denies nausea and Denies vomiting Musc Denies deformity and Denies joint swelling Neuro Denies syncope and Denies headache(s) Physical exam (Primary Care) Vital Signs: Last Vital Signs Pulse 52 07/19/24 08:50 BP 136/72 07/19/24 08:50 Pulse Ox 96 07/19/24 08:50 Oxygen Delivery Method Room Air 07/19/24 08:50 BMI result Body Mass Index 28.4 Tobacco/Smoking Status: Tobacco use Status Tobacco use date assessed 11/24/23 07/19/24 08:50 Patient Tobacco Use Status Never used Tobacco 07/19/24 08:50 Tobacco use type Cigarette 07/19/24 08:50 e-Cigarette/Vaping Use Never Used 07/19/24 08:50 Thrive Assessment: Date of Thrive Assessment Date Thrive assessed 11/24/23 07/19/24 08:50 Const General: cooperative, comfortable, no acute distress and alert Neck Neck: Yes no lymphadenopathy Thyroid: Thyroid normal Resp Effort & Inspection: normal respiratory effort Auscultation: clear to auscultation bilaterally Percussion: percussion normal Cardio Jugular venous distension: no JVD Palpation: normal PMI Rate: regular rate Rhythm: regular rhythm Heart sounds: S1 normal heart sound present and S2 normal heart sound present GI Inspection: Yes normal to inspection Palpation (GI): No hepatosplenomegaly present Skin General skin exam: no rashes or lesions noted Extrem General: Yes no clubbing, cyanosis or edema Coding Level of Care Code Est Pt Level 3 (42589) Diagnoses Hyperlipidemia E78.5 Assessment & Plan Assessment & Plan (1) Hyperlipidemia: Code(s): E78.5 - Hyperlipidemia, unspecified Category: Medical Plan: stable; same rx Orders: Orders Lipid Panel Today Z13.220 - Encounter for screening for lipoid disorders Complete Blood Count Auto Diff Today Z13.0 - Encounter for screening for diseases of the blood and blood-forming organs and certain disorders involving the immune mechanism Thyroid Stimulating Hormone Today Z13.29 - Encounter for screening for other suspected endocrine disorder Comprehensive [place]. Panel Fast Today Z13.9 - Encounter for screening, unspecified
== END 2024-07-19 09:21 | disposition home or self-care (01) ==
PROVIDERS: PCP Internal Medicine; Visit Provider Internal Medicine
DX: E78.5 Hyperlipidemia, unspecified (principal)

== ENCOUNTER → 2024-07-19 08:44 | Outpatient (BNVA) | payer MEDICARE, SELFPAY | PROVIDERS: PCP Internal Medicine; Visit Provider Internal Medicine | DX: E78.5 Hyperlipidemia, unspecified (principal) | CPT/HCPCS: 99212 ==

== ENCOUNTER 2024-11-23 08:02 | Outpatient (REF) | payer MEDICARE, SELFPAY ==
--- OUTSIDE RECORDS SUMMARY | 2024-11-23 08:11 | XMS_ITS ---
Author Name [facility] [place] [facility] [place] [facility] [place] [facility] [place] Address [address] [place] [address] Care Team Providers Care Pnp Name Role Phone SHREYA SIMPSON Primary Care Provider Unavailabl e Insurance Providers: All historical and current Section Date Range: From patient's date of to the date document was created. This section includes the names of all active insurance providers for the patient. Insurance Provider Type of Coverage Plan Name Start of Policy Coverage End of Policy Coverage Group Number Member ID Insurance Provider's Telephone Number Policy Traore's Name Patient's Relationship to Policy Traore [place] MEDICARE SUPPLEMEN MANOHAR MEDEX BRONZ E Aug 22, 2007 [id number] [phone] BURKEIANOAH LLAAYUSH Sagasutme T [place] SUPPLEMEN MANOHAR MEDEX BRONZ E Aug 22, 2007 [id number] MASCIADRE LLMiteshAAYUSH T [place] SU[place] MAN[place] MEDEX BRONZ E Aug 22, 2007 [id number] MASCIADRE LLAAYUSH Sagastume T PATIENT BCBS [facility] MEDICARE SUPPLEMEN MANOHAR PSUED O MEDEX BRONZ E Aug 22, 2007 [id number] [phone] BURKEIADRE LLAAYUSH Sagastume T PATIENT MEDICARE (WNR) MEDICARE () PART B Aug 22, 2007 PART B [id number] MASCIADRE LLI,AAYUSH T PATIENT MEDICARE (WNR) MEDICARE () PART B Aug 22, 2007 PART B [id number] [phone] MASCIADRE LLI,AAYUSH T PATIENT MEDICARE (WNR) MEDICARE () PART A Aug 22, 2007 PART A [id number] MASCIADRE LLI,AAYUSH T PATIENT MEDICARE (WNR) MEDICARE () PART A Aug 22, 2007 PART A [id number] [phone] MASCIADRE LLI,AAYUSH T PATIENT MEDICARE (WNR) MEDICARE () PART B Aug 22, 2007 PART B [id number] MASCIADRE LLI,AAYUSH T PATIENT MEDICARE (WNR) MEDICARE () PART A Aug 22, 2007 PART A [id number] MASCIADRE LLI,AAYUSH Gore PATIENT Selected Encounter This section includes the information on record at [place] for the Encounter. 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, right eye, mild stage MERHAR,MALINDA B [place] [facility] [place] [facility] Jul 01, 2024 09:01 AM SECONDARY Age-related nuclear cataract, left eye MERHAR,MALINDA B [place] [facility] [place] [facility] Jul 01, 2024 09:01 AM SECONDARY Corneal transplant status MERHAR,MALINDA B [place] [facility] [place] [facility] Jul 01, 2024 09:01 AM SECONDARY Keratoconus, stable, bilateral MERHAR,MALINDA B [place] [facility] [place] [place] [facility] Jul 01, 2024 09:01 AM SECONDARY Other halfway (current) drug therapy [facility] Jul 01, 2024 09:01 AM SECONDARY Presence of intraocular lens [facility]INDA [facility]IL[facility] Plan of Treatment: Future Appointments (+ 6 months) and Future Tests (+/- 45 days) The Plan of Treatment section includes future care activities for the patient from [facility] [place] [facility]. This section includes future appointments and future orders which are active, pending or scheduled. Future Appointments This section includes appointments that were scheduled to occur 6 months from the date of the Encounter, up to a maximum of 20 appointments. The data comes from all [facility]. Appointment Date/Time Appointment Type Appointme nt Facility Name Jun 22, 2024 02:15 PM [facility]UL[facility] Jul 09, 2024 09:30 AM AMBULATORY - MEDICINE [facility] Jul 09, 2024 09:31 AM AMBULATORY - MEDICINE [facility] Aug 13, 2024 01:00 PM AMBULATORY - [facility]IC[facility] Oct 13, 2024 01:00 PM AMBULATORY - SURGERY [facility] Nov 22, 2024 09:00 AM AMBULATORY - MEDICINE [facility] N[facility]L [facility] Active, Pending, and Scheduled Orders This section includes a listing of several types of active, pending, and scheduled orders, including clinic medications orders, diagnostic test orders, procedure orders and consult orders; where the start date of the order is 45 days before the date of the Encounter or 45 days after the date of theEncounter. The data comes from all [facility]. Test Date/Time Test Type Test Details Facility Name May 17, 2024 12:00 AM Laboratory - Chemi stry Order [facility] Jun 17, 2024 03:49 PM Consult Order COMMUNITY CARE-OPHTHALMOLOGY Cons Psychology Instructor's Choice [facility] Social History: Smoking Status (Most current) and Tobacco Use (All prior to encounter date) This section includes the most current, and the historical, smoking and tobacco- related health factors from the [place] facility where the Encounter took place. Current Smoking Status This section includes the most current smoking, or tobacco-related health factor, from the [place] facility where the Encounter took place. Date/Time Current Smoking Status Comment Facil ity January 23, 2024 10:00 AM VA-TOBACCO NEVER USED [place] [facility] [place] [facility] Tobacco Use History This section includes a history of the smoking, or tobacco-related health factors, that were collected on or before the date of the Encounter. The data comes from the [place] facility where the Encounter took place. Date/Time Smoking Status/Tobacco Use Comment F acility Dec 11, 2022 09:30 AM VA-TOBACCO NEVER USED [place] [facility] [place] [facility] Dec 28, 2021 09:00 AM VA-TOBACCO NEVER USED [facility] [place] [facility] Oct 02, 2020 11:00 AM VA-TOBACCO NEVER USED [facility] [place] [facility] Aug 18, 2018 10:48 AM VA-TOBACCO NEVER USED [facility] [place] [facility] Dec 08, 2017 08:55 AM LIFETIME NON-TOBACCO USER [facility] [place] [facility] Nov 28, 2016 10:51 AM LIFETIME NON-TOBACCO USER [facility] [place] [facility] Encounter Notes: All associated encounter notes This section contains the clinical notes associated to the Encounter. Date/Time Encounter Note(s) Provider Source Jun 17, 2024 09:20 AM OPTOMETRY NOTE: LOCAL TITLE: OPTOMETRY NOTE STANDARD TITLE: OPTOMETRY NOTE DATE OF NOTE: JUN 17, 2024@09:20 ENTRY DATE: JUN 17, 2024@09:21:01 AUTHOR: MALINDA AVILA EXP COSIGNER: URGENCY: STATUS: COMPLETED 83 WHITE MALE NOT OR Last eye exam: 10/29/23 Reason for Visit/CC: patient here for an IOP check. Reports no changes in vision or new issues. Very happy with scleral lenses from Dr. Francisco at [facility]. Will see her again in August. Also will be seeing Dr. Hudson in Aug. at [facility]. He is going to [place] next week and wants to make sure he has enough meds for the trip. OHx: 1. 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 Open angle glaucoma OD 3. Pseudophakia OD 4. Nuclear sclerosis Cataracts OS 5. 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 ([facility] [id number]) E55.9 Decreased vitamin D ([facility] [id number]) H18.613 Keratoconus of bilateral corneas ([facility] [id number]) 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 ([facility] [id number]) H18.613 Keratoconus ([facility] [id number]) H40.10X1 Open-angle glaucoma of right eye ([facility] [id number]) 799.9 H/O: surgery ([facility] [id number]) 799.9 H/O: surgery ([facility] [id number]) E78.5 Dyslipidemia ([facility] [id number]) Other: SYSTEMIC MEDICATIONS/OCULAR MEDICATIONS: Active and Recently Outpatient Medications (excluding Supplies): Active Outpatient Medications Status ========= 1) ASPIRIN 81MG EC TAB TAKE ONE TABLET BY MOUTH ONCE ACTIVE DAILY TO PREVENT STROKE/HEART ATTACK 2) EZETIMIBE 10MG TAB TAKE ONE TABLET BY MOUTH ONCE ACTIVE DAILY TO LOWER CHOLESTEROL 3) FENOFIBRATE 48MG TAB TAKE ONE TABLET BY MOUTH ONCE ACTIVE DAILY FOR HIGH CHOLESTEROL 4) FLUOROMETHOLONE 0.25% OPH SUSP INSTILL 1 DROP INTO ACTIVE THE RIGHT EYE EVERY DAY 5) TAFLUPROST 0.0015% OPH SOLN INSTILL 1 DROP INTO THE ACTIVE (S) RIGHT EYE AT BEDTIME 6) TIMOLOL MALEATE 0.5% OPH SOLN 0.3ML INSTILL 1 DROP ACTIVE INTO THE RIGHT EYE TWICE DAILY Active Non-VA Medications Status ========= 1) Non-VA ASPIRIN 81MG EC TAB 81MG BY MOUTH ONCE DAILY ACTIVE 2) Non-VA CYCLOSPORINE 0.05% (PF) OPH EMUL 0.4ML 1 DROP ACTIVE ONCE DAILY 8 Total Medications ALLERGIES: ROSUVASTATIN, LIPITOR, BRIMONIDINE LAST BP: 136/76 (05/17/2024 08:54) PERTINENT LABS: HEMOGLOBIN A1C; BLOOD Fran. Date: 05/12/24 09:27 11/05/23 08:57 Test Name Result Units Range HEMOGLOBIN A1C 5.5 5.8 H % 4.0 - 5.6 DVA ( )sc ( x )cc CLs OD 20/20-1 OS 20/30-1 Pupils: PERRL (-)APD EOM: Full all meridia OU, (-) pain/diplopia Confrontation Visual Garner: Full all meridia OU SLE: Lids/Lashes: dermatochalasis with lower lid bags OU Conjunctiva: white and quiet OU Corneas: scarring and sutures from prior corneal transplant OD with 3 sutures remaining at 2:00, 6:00 and 7:00, neovascularization inferior and superior OD, OS with slight central haze, conjunctiva folded over inferior nasal limbus OS, scleral lenses in great condition, well centered Iris: flat and clear OU Anterior Chamber: deep and quiet OU Angles: open OU Lens: PCIOL OD, 1+ NS/1+ ACC OS, (-)PXF OU TAP @ 9:50am Goncalves,[employer] OD 8,9 OS 7,9 undilated: Vitreous: Syneresis OU C/D (Size and Rim Description) OD 0.65 pink & healthy OS 0.40 pink & healthy (-)drance heme/notching OU Macula OD flat and clear OS flat and clear A/V: normal caliber OU Posterior Pole: clear OU Assessment/Plan: 1. Mild Secondary Open angle glaucoma OD - IOP is stable (slightly lower than typical for him) and appropriately reduced. Now having glaucoma managed here but scheduled to see Dr. Pradeep Hudson at [facility] in a few months. PF Cosopt discontinued due to likely allergy, Brimonidine was discontinued previously due to allergy. Cupping appears stable. RNFL OCT last visit thin superior OD, borderline superior OS. VF were clear OU. Continue Zioptan QHS OD and PF timolol 0.5% BID OD. Monitor 6 months 2. 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 Currently on specialty compounded cyclosporine 0.5% Qdaily OD and FML Qdaily OD, doing well on those drops. Follow by Dr. Francisco at [facility] for scleral contact lenses, current pair in good condition. Monitor. 3. Pseudophakia OD - stable 4. Nuclear sclerosis Cataracts OS - not visually significant, monitor RTC 6 months or earlier PRN Patient Education: Glaucoma: Patient was educated regarding glaucoma/glaucoma suspect as well as the natural history of this diagnosis including prognosis. Stress importance of compliance and persistency with glaucoma medication when prescribed, timely follow up as well as the role of ancillary testing. Exclusion criteria for ancillary testing include significantly reduced acuity, mental status changes affecting the patient's ability to attend to the test or other physical limitations that would prohibit the patient's ability to participate in testing. patient offered and declined printed medication list Medication Reconciliation: Outpatient: Has the patient been taking medications as documented in the EMLR? YES: The patient has been taking medications as documented in the EMLR. Essential Medication List for Review used to complete this medication reconciliation. INCLUDED IN THIS LIST: Alphabetical list of active outpatient prescriptions dispensed from this [place] (local) and dispensed from another [place] or [place] facility (remote) as well as inpatient orders (local, pending and active), local clinic medications, locally documented non-VA medications, and local prescriptions that have or been discontinued in the past 90 days. - All changes in medications, including all non-VA/Herbal/OTC medications were entered into CPRS. - If there were any medications the patient should no longer take, they were discontinued. - The patient/caregiver was instructed to update this list, discard old lists, and take this list to the next appointment, whether with a VA or non-VA provider. JLV Link Data on this list may not be complete. Please check JLV. Allergies/ADRs (Tool #5) FACILITY ALLERGY/ADR -------- [facility] ATORVASTATIN [facility] BRIMONIDINE [facility] ROSUVA[facility] [place] [facility] BRIMONIDINE [facility] [place] [facility] LIPITOR [facility] [place] [facility] ROSUVASTATIN Med Recon NoGlossary (Tool #1) INCLUDED IN THIS LIST: Alphabetical list of active outpatient prescriptions dispensed from this [place] (local) and dispensed from another [place] or [facility] facility (remote) as well as inpatient orders (local pending and active), local clinic medications, locally documented non-VA medications, and local prescriptions that have or been discontinued in the past 90 days. Non-VA Meds Last Documented On: May 06, 2023 NOTE The display of VA prescriptions dispensed from another VA or DoD facility (remote) is limited to active outpatient prescription entries matched to National Drug File at the originating site and may not include some items such as investigational drugs, compounds, etc. NOT INCLUDED IN THIS LIST: Medications self-entered by the patient into personal health records (i.e. [email or web address]) are NOT included in this list. Non-VA medications documented outside this [place], remote inpatient orders (regardless of status) and remote clinic medications are NOT included in this list. The patient and provider must always discuss medications the patient is taking, regardless of where the medication was dispensed or obtained. -------- Non-VA ASPIRIN 81MG EC TAB TAKE ONE TABLET BY MOUTH ONCE DAILY OUTPT ASPIRIN 81MG EC TAB (Status = Active) TAKE ONE TABLET BY MOUTH ONCE DAILY TO PREVENT STROKE/HEART ATTACK Rx# [id number] Last Released: 01/23/24 Qty/Days Supply: Rx Expiration Date: 01/23/25 Refills Remainin Indication: FOR RISK REDUCTION OUTPT CARBOXYMETHYLCELLULOSE 1% OPH GEL 0.4ML (Status = Active/Suspended) APPLY 1 DROP INTO EACH EYE SIX TIMES A DAY NEEDED FOR DRY EYE Rx# [id number] Last Released: Qty/Days Supply: Rx Expiration Date: 06/18/25 Refills Remainin Indication: FOR DRY EYE Remote CARBOXYMETHYLCELLULOSE NA 1% GEL,OPH 0.4ML INSTILL 1 DROP (PF 1%) INTO EACH EYE TWICE A DAY FOR DRY EYE Last Filled: 05/28/24 (Active at [facility]) Rx Expiration Date: 05/29/25 Days Supply: 30 Remote CONTACT LENS CLEANING (CLEAR CARE) SOLN SMALL AMOUNT DIRECTED BY PROVIDER NIGHTLY FOR CONTACT LENS USE NIGHTLY FOR DISINFECTING SCLERAL LENSES Last Filled: 03/18/24 (Active at [facility]) Rx Expiration Date: 03/18/25 Days Supply: 30 Remote CONTACT LENS SOLN ([employer] SIMPLUS) (SIMPLUS) DIRECTED BY PROVIDER EVERY DAY FOR CONTACT LENS Last Filled: 05/28/24 (Active at [facility]) Rx Expiration Date: 03/18/25 Days Supply: 30 Non-VA CYCLOSPORINE 0.05% (PF) OPH EMUL 0.4ML INSTILL 1 DROP right eye ONCE DAILY Medication prescribed by Non-VA provider. nonte: 0.5% cyclosporine specialty compounded for corneal transplant status OUTPT EZETIMIBE 10MG TAB (Status = Discontinued) TAKE ONE TABLET BY MOUTH ONCE DAILY TO LOWER CHOLESTEROL Rx# [id number] Last Released: 04/20/24 Qty/Days Supply: Rx Expiration Date: 01/16/25 Refills Remainin Indication: FOR HIGH CHOLESTEROL OUTPT EZETIMIBE 10MG TAB (Status = Active) TAKE ONE TABLET BY MOUTH ONCE DAILY TO LOWER CHOLESTEROL Rx# [id number] Last Released: 06/09/24 Qty/Days Supply: Rx Expiration Date: 05/29/25 Refills Remainin Indication: FOR HIGH CHOLESTEROL OUTPT FENOFIBRATE 48MG TAB (Status = Active) TAKE ONE TABLET BY MOUTH ONCE DAILY FOR HIGH CHOLESTEROL Rx# [id number] Last Released: 06/09/24 Qty/Days Supply: Rx Expiration Date: 01/23/25 Refills Remainin Indication: FOR HIGH CHOLESTEROL OUTPT FLUOROMETHOLONE 0.25% OPH SUSP (Status = Active) INSTILL 1 DROP INTO THE RIGHT EYE EVERY DAY Rx# [id number] Last Released: 10/20/23 Qty/Days Supply: Rx Expiration Date: 10/13/24 Refills Remainin Remote SODIUM CHLORIDE 0.9% INHL 3ML INHALE 1 AMPULE (0.9%) 3ML DIRECTED BY PROVIDER EVERY DAY SCLERAL LENSES Last Filled: 03/17/24 (Active at [facility]) Rx Expiration Date: 03/18/25 Days Supply: 30 OUTPT SODIUM CHLORIDE 0.9% INHL 5ML (Status = ) USE 3 TO 4 VIALS ONCE DAILY DIRECTED BY PROVIDER IN OPHTHALMIC PROSTHETIC DEVICE Rx# [id number] Last Released: 10/16/23 Qty/Days Supply: 400/ Rx Expiration Date: 05/07/24 Refills Remainin Indication: FOR FILLING OCULAR PROSTHETIC DEVICE OUTPT TAFLUPROST 0.0015% OPH SOLN (Status = Active/Suspended) INSTILL 1 DROP INTO THE RIGHT EYE AT BEDTIME Rx# [id number] Last Released: 05/03/24 Qty/Days Supply: Rx Expiration Date: 10/13/24 Refills Remainin Indication: GLAUCOMA OUTPT TIMOLOL MALEATE 0.5% OPH SOLN 0.3ML (Status = Active) INSTILL 1 DROP INTO THE RIGHT EYE TWICE DAILY Rx# [id number] Last Released: 04/28/24 Qty/Days Supply: 180 Rx Expiration Date: 10/13/24 Refills Remainin Indication: GLAUCOMA -------- SUPPLIES -------- /enrrique/ 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
--- OUTSIDE RECORDS SUMMARY | 2024-11-23 08:11 | XMS_ITS | Continuity of Care Document ---
Author Name [facility] Organization [facility] Care Team Providers Care Order Schedule Clerk Name Role Phone [facility] Unavailable Unavailable Problems Combined list of problems from Department of Defense and Veterans Affairs facilities. It does not include entries that were removed or entered in error. Problem Status Onset Date Problem Type Date of Resolution Comments Source Cornea transplant recipient Active Condition [facility] Decreased vitamin D Active Condition Apr 17, 2018 Entered By: VONNIE CHAUDHRY Comment: 17 - START VIT D SUPPL 04/17/18 [facility] Disorder of parathyroid glands Active Condition [facility] Dyslipidemia Active Condition [facility] Glaucoma Active Condition [facility] H/O: surgery Active Condition Jul 21, 2014 Entered By: GEMA MAO Comment: s/p right corneal transplant Jul 2010; [place] H/O: surgery Active Condition Jul 21, 2014 Entered By: GEMA MAO Comment: s/p tonsillectomy in childhood; [place] Keratoconus Active Condition Nov 28, 2016 Entered By: LYUBOV RICHARD Comment: 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 Last done 08/14/2010 . 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 [facility] Seasonal allergy Active Condition [facility] Serum triglycerides raised Active Condition Apr 17, 2018 Entered By: VONNIE CHAUDHRY Comment: 188 (03/2018) / TRIG 222 ( 08/2017) [facility] Steatosis of liver Active Condition Nov 07, 2023 Entered By: SHREYA SIMPSON Comment: follows with Hep, normal Fibroscan no Cirrhosis [facility] Elevated blood-pressure reading without diagnosis of hypertension Inactive Condition 04/17/2018 [facility] Diagnosis: ICD-10-CM 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, right eye, stage unsp Active Diagnosis [facility] Diagnosis: ICD-10-CM H18.613 Keratoconus, stable, bilateral Active Diagnosis [facility] Diagnosis: ICD-10-CM J30.2 Other seasonal allergic rhinitis Active Diagnosis [facility] Diagnosis: ICD-10-CM Z04.9 Encounter for examination and observation for unsp reason Active Diagnosis [facility] Diagnosis: ICD-10-CM R42 Dizziness and giddiness Active Diagnosis [facility] Diagnosis: ICD-10-CM H40.51X1 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, right eye, mild stage Active Diagnosis [facility] Diagnosis: ICD-10-CM Z23 Encounter for immunization Active Diagnosis [facility] Diagnosis: ICD-10-CM L82.1 Other seborrheic keratosis Active Diagnosis [facility] Diagnosis: ICD-10-CM Z13.5 Encounter for screening for eye and ear disorders Active Diagnosis [facility] Medications Combined list of outpatient medications from Department of Defense and Veterans Affairs facilities.Medications provided include 1) outpatient medications from the last 15 months, and 2) patient-reported medications. Medication Details Route Status Patient Instructions Prescription Expires Prescription Number Last Dispense Date Ordering Provider Order Date Order Qty Source ASPIRIN 81MG TAB,EC TAKE ONE TABLET BY MOUTH ONCE DAILY TO PREVENT STROKE/H EART ATTACK ORAL ACTIVE 01/23/2025 [id number] SHREYA SIMPSON 2023 90 [facility] ASPIRIN 81MG TAB,EC TAKE ONE TABLET BY MOUTH ONCE DAILY TO PREVENT STROKE/H EART ATTACK ORAL DISCONT INUED 11/07/2024 [id number] CALVINLORIA GERRY 2023 120 [facility] ASPIRIN 81MG TAB,EC TAKE ONE TABLET BY MOUTH ONCE DAILY TO PREVENT STROKE/H EART ATTACK ORAL DISCONT INUED 11/06/2023 [id number] CALVIN, SHREYA GERRY 2022 90 [facility] CARBOXYMETH YLCELLULOSE NA 1% GEL,OPH 0.4ML APPLY 1 DROP INTO EACH EYE SIX TIMES A DAY NEEDED FOR DRY EYE OPHTHA LMIC ACTIVE 06/18/2025 [id number] 4 NADYA AVILA B 2023 270 [facility] CARBOXYMETH YLCELLULOSE NA 1% GEL,OPH 0.4ML INSTILL 1 DROP (PF 1%) INTO EACH EYE TWICE A DAY FOR DRY EYE OPHTHA LMIC ACTIVE 10/14/2025 [id number] 5 CLARY FRIEDMAN 2024 180 [facility] CARBOXYMETH YLCELLULOSE NA 1% GEL,OPH 0.4ML INSTILL 1 DROP (PF 1%) INTO EACH EYE TWICE A DAY FOR DRY EYE OPHTHA LMIC DISCONT INUED 05/29/2025 [id number] CLARY FRIEDMAN 2023 60 [facility] CARBOXYMETH YLCELLULOSE NA 1% GEL,OPH 0.4ML INSTILL 1 DROP (PF 1%) INTO EACH EYE FOUR TIMES A DAY FILLING BOWL OF SCLERAL LENSES OPHTHA LMIC DISCONT INUED BY PROVIDE R 03/18/2025 [id number] 4 CLARY FRIEDMAN 2023 90 [facility] CARBOXYMETH YLCELLULOSE NA 1% GEL,OPH 0.4ML INSTILL 1 DROP (PF 1%) INTO EACH EYE FOUR TIMES A DAY OPHTHA LMIC DISCONT INUED 11/19/2024 [id number] 4 CLARY FRIEDMAN 2023 100 [facility] CETIRIZINE HCL 5MG TAB TAKE ONE TABLET BY MOUTH ONCE DAILY FOR ALLERGIE S ORAL ACTIVE 11/23/2025 [id number] SHREYA SIMPSON 2024 90 [facility] CETIRIZINE HCL 5MG TAB TAKE ONE TABLET BY MOUTH ONCE DAILY FOR ALLERGIE S ORAL DISCONT INUED 10/07/2024 [id number] CLARY SUMMERS 2023 90 [facility] CONTACT LENS CLEANING (CLEAR CARE) SOLN SMALL AMOUNT DIRECTED BY PROVIDER NIGHTLY FOR CONTACT LENS USE NIGHTLY FOR DISINFEC TING SCLERAL LENSES UDP ACTIVE 10/14/2025 [id number] 5 CLARY FRIEDMAN 2024 720 [facility] CONTACT LENS CLEANING (CLEAR CARE) SOLN SMALL AMOUNT DIRECTED BY PROVIDER NIGHTLY FOR CONTACT LENS USE NIGHTLY FOR DISINFEC TING SCLERAL LENSES UDP DISCONT INUED 03/18/2025 [id number] 4 CLARY FRIEDMAN 2023 720 [facility] CONTACT LENS CLEANING (CLEAR CARE) SOLN SMALL AMOUNT DIRECTED BY PROVIDER NIGHTLY FOR CONTACT LENS USE NIGHTLY FOR DISINFEC TING SCLERAL LENSES UDP DISCONT INUED 02/11/2025 [id number] 4 CLARY FRIEDMAN 2023 720 [facility] CONTACT LENS CLEANING (CLEAR CARE) SOLN SMALL AMOUNT DIRECTED BY PROVIDER NIGHTLY FOR CONTACT LENS UDP DISCONT INUED 09/04/2024 [id number] 4 CLARY FRIEDMAN 2022 360 [facility] CONTACT LENS SOLN ([place] SIMPLUS) (SIMPLUS ) DIRECTED BY PROVIDER EVERY DAY FOR CONTACT LENS UDP ACTIVE 10/14/2025 [id number] 5 CLARY FRIEDMAN 2024 105 [facility] CONTACT LENS SOLN ([place] SIMPLUS) (SIMPLUS ) DIRECTED BY PROVIDER EVERY DAY FOR CONTACT LENS UDP DISCONT INUED 03/18/2025 [id number] 4 CLARY FRIEDMAN MICHEAL 2023 105 [facility] CONTACT LENS SOLN ([place] SIMPLUS) (SIMPLUS ) DIRECTED BY PROVIDER EVERY DAY FOR CONTACT LENS UDP DISCONT INUED 09/04/2024 [id number] 4 CLARY FRIEDMAN LAJESSIE MICHEAL 2022 105 [facility] CYCLOSPORIN E 0.05% (PF) EMULSION,OP H,0.4ML INSTILL 1 DROP right eye ONCE DAILY ACTIVE NADYA AVILA AH B 2022 [facility] EZETIMIBE 10MG TAB TAKE ONE TABLET BY MOUTH ONCE DAILY TO LOWER CHOLESTE ROL ORAL ACTIVE 05/29/2025 [id number] SHREYA SIMPSON 2023 90 [facility] EZETIMIBE 10MG TAB TAKE ONE TABLET BY MOUTH ONCE DAILY TO LOWER CHOLESTE ROL ORAL DISCONT INUED 01/16/2025 [id number] SHREYA SIMPSON 2023 90 [facility] EZETIMIBE 10MG TAB TAKE ONE TABLET BY MOUTH ONCE DAILY TO LOWER CHOLESTE ROL ORAL DISCONT INUED 01/30/2024 [id number] SHREYA SIMPSON 2022 90 [facility] FENOFIBRATE 48MG TAB TAKE ONE TABLET BY MOUTH ONCE DAILY FOR HIGH CHOLESTE ROL ORAL ACTIVE 01/23/2025 [id number] 5 SHREYA SIMPSON 2023 90 [facility] FENOFIBRATE 48MG TAB TAKE ONE TABLET BY MOUTH ONCE DAILY FOR HIGH CHOLESTE ROL ORAL DISCONT INUED 04/18/2024 [id number] MIRANDA MURPHY 2022 90 [facility] FLUOROMETHO LONE 0.25% SUSP,OPH INSTILL 1 DROP INTO THE RIGHT EYE EVERY DAY OPHTHA LMIC ACTIVE 10/21/2025 [id number] 5 NADYA AVILA AH B 2024 10 [facility] FLUOROMETHO LONE 0.25% SUSP,OPH INSTILL 1 DROP INTO THE RIGHT EYE EVERY DAY OPHTHA LMIC DISCONT INUED 10/13/2024 [id number] 4 MARGARITA,NO AH B 2023 10 [facility] FLUTICASONE PROPIONATE 50MCG/SPRAY SOLN,NASAL, 16GM INSTILL 1 SPRAY INTO EACH NOSTRIL TWICE DAILY FOR NASAL IRRITATI ON/INFLA MMATION NASAL ACTIVE 11/23/2025 [id number] CALVIN, SHREYA GERRY 2024 2 [facility] FLUTICASONE PROPIONATE 50MCG/SPRAY SOLN,NASAL, 16GM INSTILL 1 SPRAY INTO EACH NOSTRIL TWICE DAILY FOR NASAL IRRITATI ON/INFLA MMATION NASAL DISCONT INUED 09/07/2024 [id number] CLARY SUMMERS 2023 2 [facility] FLUTICASONE PROPIONATE 50MCG/SPRAY SOLN,NASAL, 16GM INSTILL 2 SPRAYS INTO EACH NOSTRIL ONCE DAILY FOR NASAL IRRITATI ON/INFLA MMATION NASAL 02/22/2024 [id number] 4 CALVIN, SHREYA GERRY 2023 1 [facility] SODIUM CHLORIDE 0.65% SOLN,NASAL SPRAY INSTILL 1 SPRAY INTO EACH NOSTRIL TWICE DAILY FOR DRYNESS OF THE NOSE NASAL ACTIVE 11/23/2025 [id number] 5 CALVIN, SHREYA GERRY 2024 90 [facility] SODIUM CHLORIDE 0.65% SOLN,NASAL SPRAY INSTILL 1 SPRAY INTO EACH NOSTRIL TWICE DAILY FOR DRYNESS OF THE NOSE NASAL DISCONT INUED 09/07/2024 [id number] 4 CLARY SUMMERS 2023 90 [facility] SODIUM CHLORIDE 0.9% INHL 3ML INHALE 1 AMPULE (0.9%) 3ML DIRECTED BY PROVIDER EVERY DAY SCLERAL LENSES UDP ACTIVE 10/14/2025 [id number] 5 CLARY FRIEDMAN 2024 300 [facility] SODIUM CHLORIDE 0.9% INHL 3ML INHALE 1 AMPULE (0.9%) 3ML DIRECTED BY PROVIDER EVERY DAY SCLERAL LENSES UDP DISCONT INUED 03/18/2025 [id number] 4 CLARY FRIEDMAN 2023 300 [facility] SODIUM CHLORIDE 0.9% INHL 3ML INHALE 1 AMPULE (0.9%) 3ML DIRECTED BY PROVIDER EVERY DAY SCLERAL LENSES UDP DISCONT INUED 10/16/2024 [id number] 4 CLARY FRIEDMAN 2023 300 [facility] SODIUM CHLORIDE 0.9% INHL 3ML INHALE 1 AMPULE (0.9%) 3ML DIRECTED BY PROVIDER EVERY DAY SCLERAL LENSES UDP DISCONT INUED (EDIT) 09/04/2024 [id number] 3 CLARY FRIEDMAN 2022 100 [facility] SODIUM CHLORIDE 0.9% INHL 5ML USE 3 TO 4 VIALS ONCE DAILY DIRECTED BY PROVIDER IN OPHTHALM IC PROSTHET IC DEVICE RESPIR ATORY (INHAL ATION) 05/07/2024 [id number] 4 MERHAR,NO AH B 2022 400 [facility] TAFLUPROST 0.0015% SOLN,OPH INSTILL 1 DROP INTO THE RIGHT EYE AT BEDTIME OPHTHA LMIC ACTIVE 10/21/2025 [id number] 5 MERHAR,NO AH B 2024 90 [facility] TAFLUPROST 0.0015% SOLN,OPH INSTILL 1 DROP INTO THE RIGHT EYE AT BEDTIME OPHTHA LMIC DISCONT INUED 10/13/2024 [id number] 4 MERHAR,NO AH B 2023 90 [facility] TIMOLOL MALEATE 0.5% SOLN,OPH,0. 3ML INSTILL 1 DROP INTO THE RIGHT EYE TWICE DAILY OPHTHA LMIC ACTIVE 10/21/2025 [id number] 5 MERHAR,NO AH B 2024 180 [facility] TIMOLOL MALEATE 0.5% SOLN,OPH,0. 3ML INSTILL 1 DROP INTO THE RIGHT EYE TWICE DAILY OPHTHA LMIC DISCONT INUED 10/13/2024 [id number] 4 MERHAR,NO AH B 2023 180 [facility] Allergies, Adverse Reactions, Alerts Combined list of allergies from Department of Defense and Veterans Affairs facilities. It does not include entries that were removed or entered in error. Substance Category Reaction Severity Reaction type Status Date Reported Comments Source BRIMONIDINE Propensity to adverse reactions to drug (finding) Eruption MILD active 8 [facility] BRIMONIDINE Propensity to adverse reactions to drug (finding) Itching of eye active 3 [facility] LIPITOR Propensity to adverse reactions to drug (finding) Muscle weakness active 7 [facility] LIPITOR Propensity to adverse reactions to drug (finding) active 3 [facility] ROSUVASTATIN Propensity to adverse reactions to drug (finding) Muscle weakness active 7 [facility] ROSUVASTATIN Propensity to adverse reactions to drug (finding) active 3 [facility] Immunizations Combined list of available immunizations from the Department of Defense and Veterans Affairs facilities. Immunization Series Date Given Administered By Site Reaction Lot Number CVX Code Drug Assembler Product Status Comments Source HEP B, ADULT 2 2024 43 complet ed [facility] COVID-19 (MODERNA), MRNA, LNP-S, PF, 50 MCG/0.5 ML (AGES 12+ YEARS) 2023 MAYRA DIMAS LEFT DELTO ID [id number] 312 complet ed [facility] INFLUENZA, HIGH-DOSE, TRIVALENT, PF 2023 MAYRA DIMAS RIGHT DELTO ID [id number] 135 complet ed [facility] COVID-19 (MODERNA), MRNA, LNP-S, PF, 50 MCG/0.5 ML (AGES 12+ YEARS) 5 2022 SOFYA DESIRRod Aponte Sandip RIGHT DELTO ID [id number] 312 complet ed [facility] INFLUENZA, HIGH-DOSE, QUADRIVALENT 2022 SAROJ DESIR M LEFT DELTO ID [id number] 197 complet ed [facility] HEP B, ADULT 2022 CURTIS IVAN LEFT DELTO ID [id number] 43 complet ed [facility] HEP B, ADULT 2022 CHARLES MARTINEZ I LEFT DELTO ID [id number] 43 complet ed [facility] HEP B, ADULT 1 2022 43 complet ed [facility] COVID-19 (MODERNA), MRNA, LNP-S, BIVALENT BOOSTER, PF, 50 MCG/0.5 ML OR 25MCG/0.25 ML DOSE 1 2021 229 complet ed MOD; [id number]; 3 [facility] INFLUENZA VACCINE, QUADRIVALENT, ADJUVANTED 2021 205 complet ed [facility] PNEUMOCOCCAL CONJUGATE PCV20, POLYSACCHARID E [id number] CONJUGATE, ADJUVANT, PF 2021 216 complet ed [facility] COVID-19 (MODERNA), MRNA, LNP-S, PF, 100 MCG OR 50 MCG DOSE 3 2020 207 complet ed MOD; [id number]; 2 [facility] INFLUENZA VACCINE, QUADRIVALENT, ADJUVANTED 2020 205 complet ed [facility] COVID-19 (MODERNA), MRNA, LNP-S, PF, 100 MCG/0.5 ML DOSE 2 2020 207 complet ed MOD; [id number]; 1 [facility] COVID-19 (MODERNA), MRNA, LNP-S, PF, 100 MCG/0.5 ML DOSE 1 2020 207 complet ed MOD; [id number]; 1 [facility] PNEUMOCOCCAL POLYSACCHARID E PPV23 2020 33 complet ed [facility] ZOSTER RECOMBINANT 2 2020 187 complet ed [facility] INFLUENZA, INJECTABLE, QUADRIVALENT, PRESERVATIVE FREE 2019 150 complet ed [facility] ZOSTER RECOMBINANT 1 2019 187 complet ed [facility] PNEUMOCOCCAL CONJUGATE PCV 13 2014 133 complet ed Not available [facility] DTAP, UNSPECIFIED FORMULATION 2014 107 complet ed [facility] TD(ADULT) UNSPECIFIED FORMULATION 2014 139 complet ed [facility] Results Combined list of recent chemistry, hematology and other laboratory results from Department of Defense and Veterans Affairs, ranging from 15 months to all on record, depending upon the facility. Order Name Results Value Reference Range Date Interpretation Specimen Comments Source LIPID PANEL FASTING CHOLESTEROL [MASS/VOLUM E] IN SERUM OR PLASMA 232 mg/dL 11/16 H Specimen Type: SERUM No comment entered. Ordering Provider: LUIS ALBERTO SIMPSON SA Report Released Date/Time: May 17, 2024 09:21 AM Reporting Lab: [facility] [place] [facility] [address] [address] Performing Lab: [facility] [place] [facility] [address] [address] [facility] LIPID PANEL FASTING TRIGLYCERID E [MASS/VOLUM E] IN SERUM OR PLASMA 202 mg/dL 0 - 150 11/16 H Specimen Type: SERUM No comment entered. Ordering Provider: LUIS ALBERTO SIMPSON SA Report Released Date/Time: May 17, 2024 09:21 AM Reporting Lab: [facility] [place] [facility] [address] [address] Performing Lab: [facility] [place] [facility] [address] [address] [facility] LIPID PANEL FASTING CHOLESTEROL IN LDL [MASS/VOLUM E] IN SERUM OR PLASMA BY CALCULATION 141 mg/dL 0 - 129 11/16 H Specimen Type: SERUM No comment entered. Ordering Provider: LUIS ALBERTO SIMPSON SA Report Released Date/Time: May 17, 2024 09:21 AM Reporting Lab: [facility] [place] [facility] [address] [address] Performing Lab: [facility] [place] [facility] [address] [address] [facility] LIPID PANEL FASTING CHOLESTEROL .TOTAL/CHOL ESTEROL IN HDL [MASS RATIO] IN SERUM OR PLASMA 4.5 11/16 Specimen Type: SERUM No comment entered. Ordering Provider: LUIS ALBERTO SIMPSON SA Report Released Date/Time: May 17, 2024 09:21 AM Reporting Lab: [facility] [place] [facility] [address] [address] Performing Lab: [place] [facility] [place] [facility] [address] [address] [facility] LIPID PANEL FASTING CHOLESTEROL IN HDL [MASS/VOLUM E] IN SERUM OR PLASMA 51 mg/dL 40 - 60 11/16 Specimen Type: SERUM No comment entered. Ordering Provider: LUIS ALBERTO SIMPSON SA Report Released Date/Time: May 17, 2024 09:21 AM Reporting Lab: [facility] [place] [facility] [address] [address] Performing Lab: [facility] [place] [facility] [address] [address] [facility] HEMOGLOBI N A1C PANEL HEMOGLOBIN A1C/HEMOGLO BIN.TOTAL IN BLOOD BY HPLC 5.8 4.0 - 5.6 11/16 H Specimen Type: BLOOD Comment: Values obtained from A1C measurement s can vary. For atypical A1C assays, a reported value of 7.0 could actually be between 6.72 and 7.28 if measured by a reference method. A reported value of 9.0 could actually be between 8.73 and 9.27. Ref: http://[email or web address] ngsp.org/[place] Pdata.asp Ordering Provider: LUIS ALBERTO SIMPSON SA Report Released Date/Time: May 17, 2024 09:21 AM Reporting Lab: [facility] [place] [facility] [address] [address] Performing Lab: [place] [facility] [place] [address] [address] [facility] LIVER FUNCTION PROTEIN [MASS/VOLUM E] IN SERUM OR PLASMA 7.8 g/dL 6.0 - 8.3 11/16 Specimen Type: SERUM No comment entered. Ordering Provider: LUIS ALBERTO SIMPSON SA Report Released Date/Time: May 17, 2024 09:21 AM Reporting Lab: [facility] [place] [facility] [address] [address] Performing Lab: [place] [facility] [place] [facility] [address] [address] [facility] [place] [facility] LIVER FUNCTION ALBUMIN [MASS/VOLUM E] IN SERUM OR PLASMA 4.2 g/dL 3.5 - 5.0 11/16 Specimen Type: SERUM No comment entered. Ordering Provider: LUIS ALBERTO SIMPSON SA Report Released Date/Time: May 17, 2024 09:21 AM Reporting Lab: [facility] [place] [facility] [address] [facility] [address] Performing Lab: [place] [facility] [address] [address] [facility] LIVER FUNCTION ALKALINE PHOSPHATASE [ENZYMATIC ACTIVITY/VO LUME] IN SERUM OR PLASMA 46 U/L 40 - 150 11/16 Specimen Type: SERUM No comment entered. Ordering Provider: LUIS ALBERTO SIMPSON SA Report Released Date/Time: May 17, 2024 09:21 AM Reporting Lab: [facility] [place] [facility] [address] [facility] [address] Performing Lab: [facility] [place] [facility] [address] [address] [facility] [place] [facility] LIVER FUNCTION ASPARTATE AMINOTRANSF ERASE [ENZYMATIC ACTIVITY/VO LUME] IN SERUM OR PLASMA 31 U/L 5 - 34 11/16 Specimen Type: SERUM No comment entered. Ordering Provider: LUIS ALBERTO SIMPSON SA Report Released Date/Time: May 17, 2024 09:21 AM Reporting Lab: [facility] [place] [facility] [address] [facility] [address] Performing Lab: [facility] [place] [facility] [address] [facility] [address] [place] [facility] [place] [facility] LIVER FUNCTION ALANINE AMINOTRANSF ERASE [ENZYMATIC ACTIVITY/VO LUME] IN SERUM OR PLASMA 32 U/L 11/16 Specimen Type: SERUM No comment entered. Ordering Provider: LUIS ALBERTO SIMPSON SA Report Released Date/Time: May 17, 2024 09:21 AM Reporting Lab: [facility] [place] [facility] [address] [facility] [address] Performing Lab: [facility] [place] [facility] [address] [facility] [address] [place] [facility] [place] [facility] LIVER FUNCTION BILIRUBIN.T OTAL [MASS/VOLUM E] IN SERUM OR PLASMA 0.6 mg/dL 0.2 - 1.2 11/16 Specimen Type: SERUM No comment entered. Ordering Provider: LUIS ALBERTO SIMPSON SA Report Released Date/Time: May 17, 2024 09:21 AM Reporting Lab: [facility] [place] [facility] [address] [facility] [address] Performing Lab: [facility] [place] [facility] [address] [facility] [address] [facility] [place] [facility] BASIC METABOLIC PANEL (fasting) UREA NITROGEN [MASS/VOLUM E] IN SERUM OR PLASMA 15 mg/dL 7 - 25 11/16 Specimen Type: SERUM No comment entered. Ordering Provider: LUIS ALBERTO SIMPSON [facility] Report Released Date/Time: May 17, 2024 09:21 AM Reporting Lab: [facility] [place] [facility] [address] [address] Performing Lab: [facility] [place] [facility] [address] [facility] [address] [facility] [place] [facility] BASIC METABOLIC PANEL (fasting) GLUCOSE [MASS/VOLUM E] IN SERUM OR PLASMA 111 mg/dL 65 - 100 11/16 H Specimen Type: SERUM No comment entered. Ordering Provider: LUIS ALBERTO SIMPSON SA Report Released Date/Time: May 17, 2024 09:21 AM Reporting Lab: [facility] [place] [facility] [address] [facility] [address] Performing Lab: [facility] [place] [facility] [address] [facility] [address] [facility] BASIC METABOLIC PANEL (fasting) SODIUM [MOLES/VOLU ME] IN SERUM OR PLASMA 139 mmol/L 135 - 145 11/16 Specimen Type: SERUM No comment entered. Ordering Provider: LUIS ALBERTO SIMPSON SA Report Released Date/Time: May 17, 2024 09:21 AM Reporting Lab: [facility] [place] [facility] [address] [address] Performing Lab: [facility] [place] [facility] [address] [address] [facility] BASIC METABOLIC PANEL (fasting) POTASSIUM [MOLES/VOLU ME] IN SERUM OR PLASMA 4.3 mmol/L 3.5 - 5.0 11/16 Specimen Type: SERUM No comment entered. Ordering Provider: LUIS ALBERTO SIMPSON SA Report Released Date/Time: May 17, 2024 09:21 AM Reporting Lab: [place] [facility] [place] [facility] [address] [facility] [facility] [address] Performing Lab: [place] [facility] [place] [facility] [address] [facility] [facility] [address] [place] [facility] [place] [facility] BASIC METABOLIC PANEL (fasting) CHLORIDE [MOLES/VOLU ME] IN SERUM OR PLASMA 105 mmol/L 100 - 110 11/16 Specimen Type: SERUM No comment entered. Ordering Provider: LUIS ALBERTO SIMPSON SA Report Released Date/Time: May 17, 2024 09:21 AM Reporting Lab: [facility]ITALTRN [facility] [address] [facility] [facility] [address] Performing Lab: [facility] [address] [facility] [facility] [address] [facility]N [facility] HOSPITALUSE [facility] BASIC METABOLIC PANEL (fasting) CARBON DIOXIDE, TOTAL [MOLES/VOLU ME] IN SERUM OR PLASMA 24 meq/L 20 - 30 11/16 Specimen Type: SERUM No comment entered. Ordering Provider: LUIS ALBERTO SIMPSON SA Report Released Date/Time: May 17, 2024 09:21 AM Reporting Lab: [facility]ITALRL TRN [facility]USE[address] [address] Performing Lab: [facility]ITALRATH[facility]OSPITALTRN [facility]USE[address] [address] [facility]ITALR[facility]N [facility]OSPITALUSE [facility] BASIC METABOLIC PANEL (fasting) CALCIUM [MASS/VOLUM E] IN SERUM OR PLASMA 9.1 mg/dL 8.5 - 10.2 11/16 Specimen Type: SERUM No comment entered. Ordering Provider: LUIS ALBERTO SIMPSON SA Report Released Date/Time: May 17, 2024 09:21 AM Reporting Lab: [facility]ITALRCH[facility]USN [facility]USE[address] [address] Performing Lab: [facility]ITAL[facility]USE[address] [address] [facility]ITALRL TRN [facility]OSPITALUSE [facility] BASIC METABOLIC PANEL (fasting) CREATININE [MASS/VOLUM E] IN SERUM OR PLASMA 1.07 mg/dL 0.50 - 1.40 11/16 Specimen Type: SERUM No comment entered. Ordering Provider: LUIS ALBERTO SIMPSON SA Report Released Date/Time: May 17, 2024 09:21 AM Reporting Lab: [facility]ITALRATHENS-LIMEST[facility] HOSPITALTRN [facility]USE[address] [address] Performing Lab: [facility]ITALRCHILDR[facility]USN [facility]ITALUSE[address] [address] [facility]ITALRATHENS-LIMESTONE HOSPITALTRN [place] [facility] BASIC METABOLIC PANEL (fasting) GLOMERULAR FILTRATION RATE/1.73 SQ M.PREDICTED [VOLUME RATE/AREA] IN SERUM, PLASMA OR BLOOD BY CREATININE- BASED FORMULA (CKD-EPI 2020) 69 mL/min 60 11/16 Specimen Type: SERUM No comment entered. Ordering Provider: LUIS ALBERTO SIMPSON SA Report Released Date/Time: May 17, 2024 09:21 AM Reporting Lab: [place] [facility] [facility] [address] [facility] [facility] [address] Performing Lab: [place] [facility] [place] [facility] [address] [facility] [facility] [address] [facility]ITALRATHENS-LIMESTONE HOSPITALTRN [place] [facility] TSH THYROTROPIN [UNITS/VOLU ME] IN SERUM OR PLASMA 1.71 u[IU]/ mL 0.35 - 5.00 11/16 Specimen Type: SERUM No comment entered. Ordering Provider: LUIS ALBERTO SIMPSON SA Report Released Date/Time: May 17, 2024 09:21 AM Reporting Lab: [facility] [place] [facility] [address] [facility] [facility] [address] Performing Lab: [facility]ITALRL TRN [facility]ITALUSETS [facility] [address] [facility] [facility] [address] [facility] HOSPITALUSE [facility] CBC AND DIFF (AUTO) LEUKOCYTES [#/VOLUME] IN BLOOD BY AUTOMATED COUNT 7.25 10*3/u L 4.50 - 11.00 11/16 Specimen Type: BLOOD No comment entered. Ordering Provider: LUIS ALBERTO SIMPSON SA Report Released Date/Time: May 17, 2024 09:21 AM Reporting Lab: [place] [facility] [place] [facility] [address] [facility] [facility] [address] Performing Lab: [facility]ITALRL TRN [facility] H[facility]PITALUSETS [address] [address] [facility]OSPITALUSE [facility] CBC AND DIFF (AUTO) ERYTHROCYTE S [#/VOLUME] IN BLOOD BY AUTOMATED COUNT 4.94 10*6/u L 4.23 - 5.66 11/16 Specimen Type: BLOOD No comment entered. Ordering Provider: LUIS ALBERTO SIMPSON SA Report Released Date/Time: May 17, 2024 09:21 AM Reporting Lab: [facility] [place] [facility] [address] [facility] [address] Performing Lab: [facility] [place] [facility] [address] [facility] [address] [facility] [place] [facility] CBC AND DIFF (AUTO) HEMOGLOBIN [MASS/VOLUM E] IN BLOOD 16.2 g/dL 12.8 - 17 11/16 Specimen Type: BLOOD No comment entered. Ordering Provider: LUIS ALBERTO SIMPSON SA Report Released Date/Time: May 17, 2024 09:21 AM Reporting Lab: [facility] [facility] [address] [facility] [facility] [address] Performing Lab: [place] [facility] [place] [facility] [address] [facility] [facility] [address] [facility] [place] [facility] CBC AND DIFF (AUTO) HEMATOCRIT [VOLUME FRACTION] OF BLOOD BY AUTOMATED COUNT 46.6 39.2 - 50.4 11/16 Specimen Type: BLOOD No comment entered. Ordering Provider: LUIS ALBERTO SIMPSON SA Report Released Date/Time: May 17, 2024 09:21 AM Reporting Lab: [facility] [facility] [address] [facility] [address] Performing Lab: [place] [facility] [place] [facility] [address] [facility] [facility] [address] [facility] [place] [facility] CBC AND DIFF (AUTO) MCV [ENTITIC VOLUME] BY AUTOMATED COUNT 94.3 fL 82 - 99 11/16 Specimen Type: BLOOD No comment entered. Ordering Provider: LUIS ALBERTO SIMPSON SA Report Released Date/Time: May 17, 2024 09:21 AM Reporting Lab: [facility] [facility] [address] [facility] [address] Performing Lab: [facility] [place] [facility] [address] [facility] [facility] [address] [facility] [place] [facility] CBC AND DIFF (AUTO) MCHC [MASS/VOLUM E] BY AUTOMATED COUNT 34.8 g/dL 30.8 - 35.1 11/16 Specimen Type: BLOOD No comment entered. Ordering Provider: LUIS ALBERTO SIMPSON SA Report Released Date/Time: May 17, 2024 09:21 AM Reporting Lab: [facility] [place] [facility] [address] [facility] [address] Performing Lab: [facility] [place] [facility] [address] [facility] [facility] [address] [facility] CBC AND DIFF (AUTO) PLATELETS [#/VOLUME] IN BLOOD BY AUTOMATED COUNT 264 10*3/u L 140 - 360 11/16 Specimen Type: BLOOD No comment entered. Ordering Provider: LUIS ALBERTO SIMPSON SA Report Released Date/Time: May 17, 2024 09:21 AM Reporting Lab: [facility] [place] [facility] [address] [facility] [address] Performing Lab: [facility] [place] [address] [address] [facility] [place] [facility] CBC AND DIFF (AUTO) ERYTHROCYTE DISTRIBUTIO N WIDTH [RATIO] BY AUTOMATED COUNT 12.4 12.0 - 16.0 11/16 Specimen Type: BLOOD No comment entered. Ordering Provider: LUIS ALBERTO SIMPSON SA Report Released Date/Time: May 17, 2024 09:21 AM Reporting Lab: [facility] [facility] [address] [facility] [address] Performing Lab: [facility] [place] [facility] [address] [facility] [address] [facility] [place] CBC AND DIFF (AUTO) MONOCYTES [#/VOLUME] IN BLOOD BY AUTOMATED COUNT 0.50 10*3/u L 0.30 - 1.10 11/16 Specimen Type: BLOOD No comment entered. Ordering Provider: LUIS ALBERTO SIMPSON SA Report Released Date/Time: May 17, 2024 09:21 AM Reporting Lab: [facility] [place] [facility] [address] [facility] [address] Performing Lab: [facility] [place] [facility] [address] [place] [address] [facility] [place] CBC AND DIFF (AUTO) MCH [ENTITIC MASS] BY AUTOMATED COUNT 32.8 pg 26.2 - 32.6 11/16 H Specimen Type: BLOOD No comment entered. Ordering Provider: LUIS ALBERTO SIMPSON SA Report Released Date/Time: May 17, 2024 09:21 AM Reporting Lab: [facility] [facility] [address] [facility] [address] Performing Lab: [facility] [place] [facility] [address] [facility] [address] [facility] [place] CBC AND DIFF (AUTO) NEUTROPHILS /100 LEUKOCYTES IN BLOOD BY AUTOMATED COUNT 56.3 43.7 - 75.8 11/16 Specimen Type: BLOOD No comment entered. Ordering Provider: LUIS ALBERTO SIMPSON SA Report Released Date/Time: May 17, 2024 09:21 AM Reporting Lab: [place] [facility] [address] [address] Performing Lab: [facility] [place] [facility] [address] [facility] [facility] [address] [facility] [place] [facility] CBC AND DIFF (AUTO) LYMPHOCYTES /100 LEUKOCYTES IN BLOOD BY AUTOMATED COUNT 32.6 14.0 - 42.3 11/16 Specimen Type: BLOOD No comment entered. Ordering Provider: LUIS ALBERTO SIMPSON SA Report Released Date/Time: May 17, 2024 09:21 AM Reporting Lab: [facility] [place] [address] [address] Performing Lab: [facility] [place] [facility] [address] [facility] [address] [facility] [place] [facility] CBC AND DIFF (AUTO) MONOCYTES/1 00 LEUKOCYTES IN BLOOD BY AUTOMATED COUNT 6.9 5.1 - 13.7 11/16 Specimen Type: BLOOD No comment entered. Ordering Provider: LUIS ALBERTO SIMPSON SA Report Released Date/Time: May 17, 2024 09:21 AM Reporting Lab: [facility] [place] [address] [address] Performing Lab: [place] [facility] [place] [facility] [address] [facility] [facility] [address] [place] [facility] [place] [facility] CBC AND DIFF (AUTO) EOSINOPHILS /100 LEUKOCYTES IN BLOOD BY AUTOMATED COUNT 3.3 0.4 - 6.8 11/16 Specimen Type: BLOOD No comment entered. Ordering Provider: LUIS ALBERTO SIMPSON SA Report Released Date/Time: May 17, 2024 09:21 AM Reporting Lab: [facility] [facility] [address] [facility] [address] Performing Lab: [facility] [place] [facility] [address] [facility] [address] [place] [facility] [place] [facility] CBC AND DIFF (AUTO) BASOPHILS/1 00 LEUKOCYTES IN BLOOD BY AUTOMATED COUNT 0.6 0.1 - 2.0 11/16 Specimen Type: BLOOD No comment entered. Ordering Provider: LUIS ALBERTO SIMPSON SA Report Released Date/Time: May 17, 2024 09:21 AM Reporting Lab: [facility] [place] [facility] [address] [place] [address] Performing Lab: [place] [facility] [place] [address] [address] [place] [facility] [place] [facility] CBC AND DIFF (AUTO) NEUTROPHILS [#/VOLUME] IN BLOOD BY AUTOMATED COUNT 4.09 10*3/u L 2.20 - 7.60 11/16 Specimen Type: BLOOD No comment entered. Ordering Provider: LUIS ALBERTO SIMPSON SA Report Released Date/Time: May 17, 2024 09:21 AM Reporting Lab: [facility] [place] [facility] [address] [place] [address] Performing Lab: [facility] [place] [facility] [address] [place] [address] [facility] [facility] CBC AND DIFF (AUTO) LYMPHOCYTES [#/VOLUME] IN BLOOD BY AUTOMATED COUNT 2.36 10*3/u L 1.00 - 3.20 11/16 Specimen Type: BLOOD No comment entered. Ordering Provider: LUIS ALBERTO SIMPSON SA Report Released Date/Time: May 17, 2024 09:21 AM Reporting Lab: [facility] [place] [facility] [address] [facility] [address] Performing Lab: [facility] [place] [facility] [address] [facility] [address] [facility] [place] [facility] CBC AND DIFF (AUTO) EOSINOPHILS [#/VOLUME] IN BLOOD BY AUTOMATED COUNT 0.24 10*3/u L 0.03 - 0.44 11/16 Specimen Type: BLOOD No comment entered. Ordering Provider: LUIS ALBERTO SIMPSON SA Report Released Date/Time: May 17, 2024 09:21 AM Reporting Lab: [facility] [place] [facility] [address] [facility] [address] Performing Lab: [facility] [place] [facility] [address] [facility] [address] [facility] [place] [facility] CBC AND DIFF (AUTO) BASOPHILS [#/VOLUME] IN BLOOD BY AUTOMATED COUNT 0.04 10*3/u L 0.01 - 0.13 11/16 Specimen Type: BLOOD No comment entered. Ordering Provider: LUIS ALBERTO SIMPSON SA Report Released Date/Time: May 17, 2024 09:21 AM Reporting Lab: [facility] [place] [facility] [address] [facility] [address] Performing Lab: [facility] [place] [facility] [address] [facility] [address] [facility] [place] [facility] CBC AND DIFF (AUTO) IMMATURE GRANULOCYTE S/100 LEUKOCYTES IN BLOOD BY AUTOMATED COUNT 0.3 0.0 - 0.7 11/16 Specimen Type: BLOOD No comment entered. Ordering Provider: LUIS ALBERTO SIMPSON SA Report Released Date/Time: May 17, 2024 09:21 AM Reporting Lab: [facility] [place] [facility] [address] [facility] [address] Performing Lab: [facility] [place] [facility] [address] [facility] [address] [facility] [place] CBC AND DIFF (AUTO) IMMATURE GRANULOCYTE S [#/VOLUME] IN BLOOD BY AUTOMATED COUNT 0.02 10*3/u L 0.00 - 0.06 11/16 Specimen Type: BLOOD No comment entered. Ordering Provider: LUIS ALBERTO SIMPSON SA Report Released Date/Time: May 17, 2024 09:21 AM Reporting Lab: [address] [address] Performing Lab: [address] [address] [facility] CBC AND DIFF (AUTO) NUCLEATED ERYTHROCYTE S/100 LEUKOCYTES [RATIO] IN BLOOD BY AUTOMATED COUNT 0.0 0.0 - 0.0 11/16 Specimen Type: BLOOD No comment entered. Ordering Provider: LUIS ALBERTO SIMPSON SA Report Released Date/Time: May 17, 2024 09:21 AM Reporting Lab: [address] [address] Performing Lab: [address] [address] [facility] CBC AND DIFF (AUTO) NUCLEATED ERYTHROCYTE S [#/VOLUME] IN BLOOD BY AUTOMATED COUNT 0.00 10*3/u L 0.00 - 0.00 11/16 Specimen Type: BLOOD No comment entered. Ordering Provider: LUIS ALBERTO SIMPSON SA Report Released Date/Time: May 17, 2024 09:21 AM Reporting Lab: [address] [address] Performing Lab: [address] [address] [facility] HEMOGLOBI N A1C PANEL HEMOGLOBIN A1C/HEMOGLO BIN.TOTAL IN BLOOD BY HPLC 5.5 4.0 - 5.6 05/12 Specimen Type: BLOOD Comment: Values obtained from A1C measurement s can vary. For atypical A1C assays, a reported value of 7.0 could actually be between 6.72 and 7.28 if measured by a reference method. A reported value of 9.0 could actually be between 8.73 and 9.27. Ref: http://www. ngsp.org/[place] Pdata.asp Ordering Provider: LUIS ALBERTO SIMPSON SA Report Released Date/Time: May 05, 2024 02:45 PM Reporting Lab: [facility] [place] [facility] [address] [facility] [address] Performing Lab: [facility] [place] [facility] [address] [facility] [address] [facility] [place] [facility] LIPID PANEL FASTING CHOLESTEROL [MASS/VOLUM E] IN SERUM OR PLASMA 236 mg/dL 05/12 H Specimen Type: SERUM No comment entered. Ordering Provider: LUIS ALBERTO SIMPSON SA Report Released Date/Time: May 05, 2024 02:44 PM Reporting Lab: [place] [facility] [place] [facility] [address] [facility] [address] Performing Lab: [facility] [place] [address] [address] [place] [facility] LIPID PANEL FASTING TRIGLYCERID E [MASS/VOLUM E] IN SERUM OR PLASMA 176 mg/dL 0 - 150 05/12 H Specimen Type: SERUM No comment entered. Ordering Provider: LUIS ALBERTO SIMPSON SA Report Released Date/Time: May 05, 2024 02:44 PM Reporting Lab: [facility] [place] [facility] [address] [facility] [address] Performing Lab: [facility] [place] [address] [address] [place] [facility] LIPID PANEL FASTING CHOLESTEROL IN LDL [MASS/VOLUM E] IN SERUM OR PLASMA BY CALCULATION 151 mg/dL 0 - 129 05/12 H Specimen Type: SERUM No comment entered. Ordering Provider: LUIS ALBERTO SIMPSON SA Report Released Date/Time: May 05, 2024 02:44 PM Reporting Lab: [facility] [place] [facility] [address] [facility] [address] Performing Lab: [facility] [place] [place] [address] [address] [place] [facility] [place] [facility] LIPID PANEL FASTING CHOLESTEROL .TOTAL/CHOL ESTEROL IN HDL [MASS RATIO] IN SERUM OR PLASMA 4.7 05/12 Specimen Type: SERUM No comment entered. Ordering Provider: LUIS ALBERTO SIMPSON SA Report Released Date/Time: May 05, 2024 02:44 PM Reporting Lab: [facility] [place] [facility] [address] [facility] [address] Performing Lab: [facility] [place] [facility] [address] [facility] [address] [facility] [place] [facility] LIPID PANEL FASTING CHOLESTEROL IN HDL [MASS/VOLUM E] IN SERUM OR PLASMA 50 mg/dL 40 - 60 05/12 Specimen Type: SERUM No comment entered. Ordering Provider: LUIS ALBERTO SIMPSON SA Report Released Date/Time: May 05, 2024 02:44 PM Reporting Lab: [place] [facility] [place] [facility] [address] [facility] [address] Performing Lab: [place] [facility] [facility] [address] [facility] [address] [place] [facility] [place] [facility] LIVER FUNCTION PROTEIN [MASS/VOLUM E] IN SERUM OR PLASMA 7.2 g/dL 6.0 - 8.3 05/12 Specimen Type: SERUM No comment entered. Ordering Provider: LUIS ALBERTO SIMPSON SA Report Released Date/Time: May 05, 2024 02:45 PM Reporting Lab: [facility] [place] [facility] [address] [facility] [address] Performing Lab: [facility] [place] [facility] [address] [facility] [address] [place] [facility] [place] [facility] LIVER FUNCTION ALBUMIN [MASS/VOLUM E] IN SERUM OR PLASMA 4.1 g/dL 3.5 - 5.0 05/12 Specimen Type: SERUM No comment entered. Ordering Provider: LUIS ALBERTO SIMPSON SA Report Released Date/Time: May 05, 2024 02:45 PM Reporting Lab: [facility] [place] [facility] [address] [facility] [address] Performing Lab: [facility] [place] [facility] [address] [facility] [address] [facility] [place] [facility] LIVER FUNCTION ALKALINE PHOSPHATASE [ENZYMATIC ACTIVITY/VO LUME] IN SERUM OR PLASMA 52 U/L 40 - 150 05/12 Specimen Type: SERUM No comment entered. Ordering Provider: LUIS ALBERTO SIMPSON SA Report Released Date/Time: May 05, 2024 02:45 PM Reporting Lab: [facility] [place] [facility] [address] [facility] [address] Performing Lab: [facility] [place] [facility] [address] [facility] [address] [facility] [place] [facility] LIVER FUNCTION ASPARTATE AMINOTRANSF ERASE [ENZYMATIC ACTIVITY/VO LUME] IN SERUM OR PLASMA 22 U/L 5 - 34 05/12 Specimen Type: SERUM No comment entered. Ordering Provider: LUIS ALBERTO SIMPSON SA Report Released Date/Time: May 05, 2024 02:45 PM Reporting Lab: [facility] [place] [address] [address] Performing Lab: [facility] [place] [facility] [address] [facility] [address] [place] [facility] LIVER FUNCTION ALANINE AMINOTRANSF ERASE [ENZYMATIC ACTIVITY/VO LUME] IN SERUM OR PLASMA 22 U/L 05/12 Specimen Type: SERUM No comment entered. Ordering Provider: LUIS ALBERTO SIMPSON SA Report Released Date/Time: May 05, 2024 02:45 PM Reporting Lab: [facility] [place] [place] [address] [address] Performing Lab: [facility] [place] [facility] [address] [facility] [address] [place] [facility] LIVER FUNCTION BILIRUBIN.T OTAL [MASS/VOLUM E] IN SERUM OR PLASMA 0.5 mg/dL 0.2 - 1.2 05/12 Specimen Type: SERUM No comment entered. Ordering Provider: LUIS ALBERTO SIMPSON SA Report Released Date/Time: May 05, 2024 02:45 PM Reporting Lab: [place] [facility] [place] [address] [address] Performing Lab: [facility] [place] [address] [place] [address] [facility] LIPID PANEL FASTING CHOLESTEROL [MASS/VOLUM E] IN SERUM OR PLASMA 228 mg/dL 11/05 H Specimen Type: SERUM No comment entered. Ordering Provider: LUIS ALBERTO SIMPSON SA Report Released Date/Time: Oct 30, 2023 12:46 PM Reporting Lab: [facility] [place] [facility] [address] [facility] [address] Performing Lab: [place] [facility] [facility] [address] [facility] [address] [facility] LIPID PANEL FASTING TRIGLYCERID E [MASS/VOLUM E] IN SERUM OR PLASMA 185 mg/dL 0 - 150 11/05 H Specimen Type: SERUM No comment entered. Ordering Provider: LUIS ALBERTO SIMPSON SA Report Released Date/Time: Oct 30, 2023 12:46 PM Reporting Lab: [facility] [place] [address] [address] Performing Lab: [facility] [place] [address] [address] [facility] LIPID PANEL FASTING CHOLESTEROL IN LDL [MASS/VOLUM E] IN SERUM OR PLASMA BY CALCULATION 139 mg/dL 0 - 129 11/05 H Specimen Type: SERUM No comment entered. Ordering Provider: LUIS ALBERTO SIMPSON SA Report Released Date/Time: Oct 30, 2023 12:46 PM Reporting Lab: [facility] [place] [address] [address] Performing Lab: [facility] [place] [address] [address] [facility] LIPID PANEL FASTING CHOLESTEROL .TOTAL/CHOL ESTEROL IN HDL [MASS RATIO] IN SERUM OR PLASMA 4.4 11/05 Specimen Type: SERUM No comment entered. Ordering Provider: LUIS ALBERTO SIMPSON SA Report Released Date/Time: Oct 30, 2023 12:46 PM [facility] [place] [address] [address] Performing Lab: [facility] [address] [facility] [address] [facility] LIPID PANEL FASTING CHOLESTEROL IN HDL [MASS/VOLUM E] IN SERUM OR PLASMA 52 mg/dL 40 - 60 11/05 Specimen Type: SERUM No comment entered. Ordering Provider: LUIS ALBERTO SIMPSON SA Report Released Date/Time: Oct 30, 2023 12:46 PM Reporting Lab: [facility] [address] [facility] [address] Performing Lab: [facility] [address] [facility] [address] [facility] Vital Signs Combined list of inpatient and outpatient Vital Signs from Department of Defense and Veterans Affairs, ranging from 12 months to all on record, depending upon the facility. Vital Sign Value Date Comments Source SYSTOLIC BLOOD PRESSURE 123 11/23/19 25 09:12:02 [facility] DIASTOLIC BLOOD PRESSURE 80 025 09:12:02 [facility] PULSE OXIMETRY 100 11/22/2024 09:12:02 [facility] PAIN 1 11/22/2024 09:12:02 [facility] TEMPERATURE 97.8 11/22/2024 09:12:02 [facility] PULSE 57 11/22/2024 09:12:02 [facility] RESPIRATION 18 11/22/2024 09:12:02 [facility] SYSTOLIC BLOOD PRESSURE 134 07/09/20 24 09:12:52 [facility] DIASTOLIC BLOOD PRESSURE 80 024 09:12:52 [facility] PULSE OXIMETRY 98 07/09/2024 09:12:52 [facility] PAIN 2 07/09/2024 09:12:52 [facility] TEMPERATURE 99.2 07/09/2024 09:12:52 [facility] PULSE 60 07/09/2024 09:12:52 [facility] RESPIRATION 18 07/09/2024 09:12:52 [facility] SYSTOLIC BLOOD PRESSURE 136 05/17/20 24 08:54:07 [facility] DIASTOLIC BLOOD PRESSURE 76 024 08:54:07 [facility] [place] PULSE OXIMETRY 99 05/17/2024 08:54:07 [facility] [facility] WEIGHT 177.7 05/17/2024 08:54:07 [facility] BMI 30 kg/m2 05/17/2024 08:54:07 [facility] PAIN 0 05/17/2024 08:54:07 [facility] TEMPERATURE 97.4 05/17/2024 08:54:07 [facility] PULSE 53 05/17/2024 08:54:07 [facility] RESPIRATION 14 05/17/2024 08:54:07 [facility] SYSTOLIC BLOOD PRESSURE 134 01/23/20 09:58:23 [facility] DIASTOLIC BLOOD PRESSURE 84 024 09:58:23 [facility] PULSE OXIMETRY 96 01/23/2024 09:58:23 [facility] WEIGHT 180.8 01/23/2024 09:58:23 [facility] BMI 30 kg/m2 01/23/2024 09:58:23 [facility] PAIN 0 01/23/2024 09:58:23 [facility] TEMPERATURE 97.3 01/23/2024 09:58:23 [facility] PULSE 56 01/23/2024 09:58:23 [facility] RESPIRATION 14 01/23/2024 09:58:23 [facility] Encounters Combined list of: 1) Encounters from Department of Veterans Affairs facilities going backup to the last 18 months, not all VA inpatient encounters are included; 2) Encounters from the Department of Defense facilities going backup to 280 months. 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, right eye, stage unsp CALVIN,L SHARON GERRY 07/08 [facility] Outpatient Encounter [id number] JUSTICE AVILA H B 08/05 [facility] [place] [place] Outpatient Encounter [id number] 08/15 [facility] Outpatient Encounter [id number] MERHAR,JUSTICE H B 08/21 [facility] Outpatient Encounter [id number] 08/22 [facility] OFF/OP CONSLTJ NEW/[place] HI 55 [id number] Diagnos is: ICD-10- CM 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, stable, TONG Jorge 09/04 [facility] Outpatient Encounter [id number] TONG FRIEDMAN 10/14 [facility] OFFICE O/[place] HI 40 MIN [id number] Diagnos is: ICD-10- CM 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, stable, TONG Jorge 10/16 [facility] Outpatient Encounter [id number] TONG FRIEDMAN 10/16 [facility] EXTENDED VISUAL FIELD XM [id number] Diagnos is: ICD-10- CM 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, right eye, mild stage MERHAR,JUSTICE H B 10/29 [facility] COMPRE OPH EXAM EST PT 1/> [id number] Diagnos is: ICD-10- CM 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, right eye, mild stage MERHAR,JUSTICE H B 10/29 [facility] CMPTR OPHTH IMG OPTIC NERVE [id number] Diagnos is: ICD-10- CM 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, right eye, mild stage JUSTICE AVILA H B 10/29 [facility] Outpatient Encounter [id number] 10/29 [facility] OFFICE O/P EST MOD 30 MIN [id number] Diagnos is: ICD-10- CM H40.51X 0 [place] 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, right eye, stage unsp CALVIN,L SHARON GERRY 11/07 [facility] OFFICE [place] 40 MIN [id number] Diagnos is: ICD-10- CM 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, stable, bilater al TONG FRIEDMAN 11/19 [facility] Outpatient Encounter [id number] KATHRINDAVIDJUSTICE H B 01/13 [facility] Outpatient Encounter [id number] 01/13 [facility] Encounter [id number] SUKUMAR IVAN H 01/19 [facility] Encounter [id number] 01/19 [facility] Encounter [id number] 01/20 [facility] OFFICE O/P EST MOD 30 MIN [id number] Diagnos is: ICD-10- CM J30.2 Other seasona l allergi c rhiniti s Isra SIMPSON SHARONRachel GARRETT 01/22 [facility] Outpatient Encounter [id number] TONG FRIEDMAN 02/10 [facility] OFFICE O/[place] HI 40 MIN [id number] Diagnos is: ICD-10- CM 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, stable, bilraegan al TONG FRIEDMAN 03/17 [facility] Outpatient Encounter [id number] TONG FRIEDMAN 03/22 [facility] Outpatient Encounter [id number] Diagnos is: ICD-10- CM Z13.5 Encount er for screeni ng for eye and ear disorde rs TONG FRIEDMAN 03/22 [facility] Out[facility] Encounter [id number] TEODORO GUEVARA 04/21 [facility] Encounter [id number] 04/21 [facility] Out[facility] Encounter [id number] SUKUMAR IVAN 05/05 [facility] Out[facility] Encounter [id number] 05/05 [facility] Encounter [id number] 05/15 [facility] Outpatient Encounter [id number] BHATIAROGER Montelongo 05/15 [facility] OFFICE O/P EST MOD 30 MIN [id number] Diagnos is: ICD-10- CM J30.2 Other seasona l allergi c rhiniti s CALVIN,L SHARON GERRY 05/17 [facility] OFFICE O/P EST MOD 30 MIN [id number] Diagnos is: ICD-10- CM 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 DEBRA CRONIN 05/18 [facility] Outpatient Encounter [id number] TONG FRIEDMAN 05/28 [facility] Outpatient Encounter [id number] AURLEIO VELASQUEZ 05/28 [facility] OFF/OP EST MAY X REQ PHY/QHP [id number] Diagnos is: ICD-10- CM Z23 Encount er for immuniz ation DAQUAN DIMAS P 06/15 [facility] INTRM OPH EXAM EST PATIENT [id number] Diagnos is: ICD-10- CM 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, right eye, mild stage MERHAR,JUSTICE H B 06/17 [facility] [place] PT EVAL HIGH COMPLEX 45 MIN [id number] Diagnos is: ICD-10- CM R42 Dizzine ss and giddine ss CLARY ASHRAF M 06/22 [facility] OFF/OP EST MAY X REQ PHY/QHP [id number] Diagnos is: ICD-10- CM Z04.9 Encount er for examina tion and observa tion for unsp reason Sandip MAK H 07/09 [facility] OFFICE O/P EST LOW 20 MIN [id number] Diagnos is: ICD-10- CM J30.2 Other seasona l allergi c rhiniti SERENA Vences 07/09 [facility] Outpatient Encounter [id number] 09/28 [facility] Outpatient Encounter [id number] TONG FRIEDMAN 10/12 [facility] OFFICE O/P EST HI 40 MIN [id number] Diagnos is: ICD-10- CM 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, stable, bilater al TONG FRIEDMAN 10/13 [facility] Outpatient Encounter [id number] JUSTICE AVILA H B 10/20 [facility] [place] Outpatient Encounter [id number] SUKUMAR IVAN H 10/20 [facility] Outpatient Encounter [id number] 03/01 /2025 [facility] OFFICE O/P EST MOD 30 MIN [id number] Diagnos is: ICD-10- CM 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 Social History Type Response Date Comment Sour e Tobacco smoking status NHIS [facility]-TOBACCO NEVER USED 01/23/2024 [facility] [place] [facility] [place] [facility] History of tobacco use VA-TOBACCO NEVER USED 12/28/2021 [facility] [place] [facility] History of tobacco use [facility]-TOBACCO NEVER USED 10/02/2020 [facility] [place] [facility] History of tobacco use [place] NEVER USED 08/18/2018 [facility] [place] [facility] History of tobacco use LIFETIME NON-TOBACCO USER 12/08/2017 [place] [facility] [place] [facility] History of tobacco use LIFETIME NON-TOBACCO USER 11/28/2016 [facility] [place] [facility] History of tobacco use LIFETIME NON-TOBACCO USER 07/21/2014 [facility] Plan of Care List of future care activities from Department of Veterans Affairs facilities. Additional future care activities may be listed in the Assessment and Plan section. Date/Time Care Activity Care Activity Detail Facili ty 12/29/2024 AMBULATORY - MEDICINE [facility] [place] [facility] 12/29/2024 AMBULATORY - MEDICINE [facility] [place] [facility] [place] [facility] 04/13/2025 AMBULATORY - SURGERY AMBULATORY - SURGERY [facility] 05/17/2025 AMBULATORY - MEDICINE [facility] [place] [facility] [place] [facility] 05/20/2025 AMBULATORY - MEDICINE [place] [facility] [place] [facility]
--- OUTSIDE RECORDS SUMMARY | 2024-11-23 08:11 | XMS_ITS ---
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 Name Role Phone SHREYA SIMPSON Primary Care [...] MANOHAR MEDEX BRONZ E Aug [birth year], 2007 [id number] [phone] AAYUSH AYON PATIENT [place] SUPPLEMEN MANOHAR MEDEX BRONZ E Aug 22, 2007 [id number] AAYUSH A[place] MANOHAR MEDEX BRONZ E Aug 22, 2007 [id number] [phone] AAYUSH AYON PATIENT BCBS [facility] MEDICARE SUPPLEMEN MANOHAR PSUED O MEDEX BRONZ E Aug 22, 2007 [id number] AAYUSH AYON T PATIENT MEDICARE (WNR) MEDICARE (M) PART B Aug 22, 2007 PART B [id number] [phone] MASCIADRE LLI,AAYUSH T PATIENT MEDICARE (WNR) MEDICARE (M) PART A Aug 22, 2007 PART A [id number] MASCIADRE LLI,AAYUSH T PATIENT MEDICARE (WNR) MEDICARE (M) PART B Aug 22, 2007 PART B [id number] MASCIADRE LLI,AAYUSH T PATIENT MEDICARE (WNR) MEDICARE (M) PART A Aug 22, 2007 PART A [id number] [phone] MASCIADRE LLI,AAYUSH T PATIENT MEDICARE (WNR) MEDICARE (M) PART B Aug 22, 2007 PART B [id number] [phone] MASCI[place]RE LLI,AAYUSH T PATIENT MEDICARE (WNR) MEDICARE (M) PART A Aug 22, 2007 PART A [id number] BURKEIADRE LLI,AAYUSH Gore PATIENT Selected Encounter This section includes the information on record at [place] for the Encounter. Date/Time Encounter Type Encounter Description Reason Provider Source Jul 09, 2024 09:30 AM OFF/OP EST JANUARY X REQ PHY/QHP PRIMARY CARE/MEDICINE ICD-10-CM Z04.9 Encounter for examination and observation for unsp reason ASHOK MAK SA E Encounter Template Text not used by [place] Assessments - Encounter Diagnoses This section includes the primary and secondary diagnoses documented for the Encounter. Date/Time Primary/Secondary Diagnosis Diagnosis Name Provider Source Jul 23, 2024 01:34 PM PRIMARY Encounter for examination and observation for unsp reason ASHOK MAK SA [place] [facility] Plan of Treatment: Future Appointments (+ 6 months) and Future Tests (+/- 45 days) The Plan of Treatment section includes future care activities for the patient from all VA treatmentfacilities. This section includes future appointments and future orders which are active, pending or scheduled. Future Appointments This section includes appointments that were scheduled to occur 6 months from the date of the Encounter, up to a maximum of 20 appointments. The data comes from all [place] treatment [facility]. Appointment Date/Time Appointment Type Appointme nt Facility Name Aug 13, 2024 01:00 PM [facility] Oct 13, 2024 01:00 PM AMBULATORY - SURGERY [facility] Nov 22, 2024 09:00 AM [facility] Dec 29, 2024 09:00 AM AMBULATORY - MEDICINE [facility] Dec 29, 2024 09:30 AM AMBULATORY - MEDICINE [facility] Active, Pending, and Scheduled Orders This section includes a listing of several types of active, pending, and scheduled orders, including clinic medications orders, diagnostic test orders, procedure orders and consult orders; where the start date of the order is 45 days before the date of the Encounter or 45 days after the date of theEncounter. The data comes from all [facility]. Test Date/Time Test Type Test Details Facility Name Jun 17, 2024 03:49 PM Consult Order [facility]ITY [facility]-OPHTHALMOLOGY Cons Vendor Management Specialist's Choice [facility] Vital Signs: All taken on the encounter date This section contains inpatient and outpatient Vital Signs collected on the date of the Encounter. Date/Time Temperature Pulse Blood Pressure Respiratory Rate SP02 Pain Height Weight Body Mass Index Source Jul 09, 2024 09:12 AM 99.2 60 134/80 18 98 2 [facility] Social History: Smoking Status (Most current) and Tobacco Use (All prior to encounter date) This section includes the most current, and the historical, smoking and tobacco- related health factors from the [place] facility where the Encounter took place. Current Smoking Status This section includes the most current smoking, or tobacco-related health factor, from the [place] facility where the Encounter took place. Date/Time Current Smoking Status Comment Facil ity January 23, 2024 10:00 AM [place]-TOBACCO NEVER USED [facility] Tobacco Use History This section includes a history of the smoking, or tobacco-related health factors, that were collected on or before the date of the Encounter. The data comes from the [place] facility where the Encounter took place. Date/Time Smoking Status/Tobacco Use Comment F acility Dec 11, 2022 09:30 AM [facility]-TOBACCO NEVER USED [facility] [place] [facility] Dec 28, 2021 09:00 AM VA-TOBACCO NEVER USED [facility] [place] [facility] Oct 02, 2020 11:00 AM VA-TOBACCO NEVER USED [facility] [place] [facility] Aug 18, 2018 10:48 AM VA-TOBACCO NEVER USED [facility] [place] [facility] Dec 08, 2017 08:55 AM LIFETIME NON-TOBACCO USER [facility] [place] [facility] Nov 28, 2016 10:51 AM LIFETIME NON-TOBACCO USER [facility] [facility] Encounter Notes: All associated encounter notes This section contains the clinical notes associated to the Encounter. Date/Time Encounter Note(s) Provider Source Jul 09, 2024 09:04 AM PRIMARY CARE NOTE: LOCAL TITLE: WALK-IN NOTE PRIMARY CARE (T) STANDARD TITLE: PRIMARY CARE NOTE DATE OF NOTE: JUL 09, 2024@09:04 ENTRY DATE: JUL 09, 2024@09:04:06 AUTHOR: HYACINTH MAK EXP COSIGNER: URGENCY: STATUS: COMPLETED Patient identity was verified using two identifiers, per [place] Policy: Full Name, Date of MARILEE MARTINEZ is a 83 year old who presents to the clinic for Sinus issues. Visit Type: Clinic Unscheduled Primary Care Clinic Triage: S: 2 days ago stuffy nose , headaches, Head and Neck: Sinus pain/pressure Hx of sinus infection last one q 6 month ago, Flonase. Denies SOB, or chest pain. Current Home Treatment: Reports using Flonase Allergies: ROSUVASTATIN, LIPITOR, BRIMONIDINE Medications: Active Outpatient Medications (including Supplies): Active Outpatient Medications Status 1) ASPIRIN 81MG EC TAB TAKE ONE TABLET BY MOUTH ONCE ACTIVE DAILY TO PREVENT STROKE/HEART ATTACK 2) CARBOXYMETHYLCELLULOSE 1% OPH GEL 0.4ML APPLY 1 DROP ACTIVE INTO EACH EYE SIX TIMES A DAY NEEDED FOR DRY EYE 3) EZETIMIBE 10MG TAB TAKE ONE TABLET BY MOUTH ONCE ACTIVE DAILY TO LOWER CHOLESTEROL 4) FENOFIBRATE 48MG TAB TAKE ONE TABLET BY MOUTH ONCE ACTIVE DAILY FOR HIGH CHOLESTEROL 5) FLUOROMETHOLONE 0.25% OPH SUSP INSTILL 1 DROP INTO ACTIVE THE RIGHT EYE EVERY DAY 6) TAFLUPROST 0.0015% OPH SOLN INSTILL 1 DROP INTO THE ACTIVE (S) RIGHT EYE AT BEDTIME 7) TIMOLOL MALEATE 0.5% OPH SOLN 0.3ML INSTILL 1 DROP ACTIVE INTO THE RIGHT EYE TWICE DAILY Active Non-VA Medications Status 1) Non-VA ASPIRIN 81MG EC TAB 81MG BY MOUTH ONCE DAILY ACTIVE 2) Non-VA CYCLOSPORINE 0.05% (PF) OPH EMUL 0.4ML 1 DROP ACTIVE ONCE DAILY 9 Total Medications Since you last saw your [place] [facility] Provider, did you have any of the following? None A: Covid and flu shot 3 weeks ago. reports hx sinus infection. speech clear, answering triage questions appropriately, speaking full sentences w/o difficulty, no cough or wheeze audible P: Clinic Appointment with Sick call PA Comment: Home care instructions Appointment Date/Time: 07/09/24 /enrrique/ HYACINTH MAK REGISTERED NURSE Signed: 07/09/2024 09:30 HYACINTH MAK [place] [facility]
--- OUTSIDE RECORDS SUMMARY | 2024-11-23 08:11 | XMS_ITS | Encounter Summary ---
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 Role Phone SHREYA SIMPSON Primary Care [...] MANOHAR MEDEX BRONZ E Aug 22, 2007 [id number] BURKEIADRE LLAAYUSH Sagastume T PATIENT BCBS CT MEDICARE SUPPLEMEN MANOHAR MEDEX BRONZ E Aug 22, 2007 [id number] [phone] MASCIADRE LLIAAYUSH T PATIENT BCBS CT MEDICARE SUPPLEMEN MANOHAR MEDEX BRONZ E Aug 22, 2007 [id number] [phone] MASCIADRE LLMiteshAAYUSH T PATIENT BCBS [facility] MEDICARE SUPPLEMEN MANOHAR PSUED O MEDEX BRONZ E Aug 22, 2007 [id number] MASCIADRE LLI,AAYUSH T PATIENT MEDICARE (WNR) MEDICARE (M) PART B Aug 22, 2007 PART B [id number] [phone] MASCIADRE LLI,AAYUSH T PATIENT MEDICARE (WNR) MEDICARE (M) PART B Aug 22, 2007 PART B [id number] MASCIADRE LLI,AAYUSH T PATIENT MEDICARE (WNR) MEDICARE (M) PART A Aug 22, 2007 PART A [id number] [phone] MASCIADRE LLI,AAYUSH T PATIENT MEDICARE (WNR) MEDICARE (M) PART A Aug 22, 2007 PART A [id number] MASCIADRE LLI,AAYUSH T PATIENT MEDICARE (WNR) MEDICARE (M) PART B Aug 22, 2007 PART B [id number] MASCIADRE LLI,AAYUSH T PATIENT MEDICARE (WNR) MEDICARE (M) PART A Aug 22, 2007 PART A [id number] [phone] MASCIADRE LLI,AAYUSH T PATIENT Selected Encounter This section includes the information on record at [place] for the Encounter. Date/Time Encounter Type Encounter Description Reason Pro vider Source Nov 20, 2024 12:00 AM Outpatient Encounter EVENT (HISTORICAL) IHE Encounter Template Text not used by [place] Plan of Treatment: Future Appointments (+ 6 months) and Future Tests (+/- 45 days) The Plan of Treatment section includes future care activities for the patient from all [place] treatmentfacilities. This section includes future appointments and future orders which are active, pending or scheduled. Future Appointments This section includes appointments that were scheduled to occur 6 months from the date of the Encounter, up to a maximum of 20 appointments. The data comes from all [place] treatment facilities. Appointment Date/Time Appointment Type Appointme nt Facility Name Nov 22, 2024 09:00 AM AMBULATORY - MEDICINE [facility] [place] [facility] Dec 29, 2024 09:00 AM AMBULATORY - MEDICINE [facility] [place] [facility] Dec 29, 2024 09:30 AM AMBULATORY - MEDICINE [facility] [place] [facility] Apr 13, 2025 01:00 PM AMBULATORY - SURGERY [facility] May 17, 2025 10:00 AM AMBULATORY - MEDICINE [facility] May 20, 2025 09:00 AM AMBULATORY - MEDICINE [facility] Lab Results: +/- 30 days of the encounter This section includes the Chemistry and Hematology Lab Results on record with [place] for the patient. Radiology Reports and Pathology Reports are provided separately, in subsequent sections. Lab Results This section contains the Chemistry/Hematology Results that were resulted 30 days before or 30 daysafter the date of the Encounter. Date/Time Source Result Type Result - Unit Interpretation Reference Range Comment Nov 16, 2024 09:23 AM [facility] HEMOGLOBIN A1C PANEL Specimen Type: BLOOD Comment: Values obtained from A1C measurements can vary. For atypical A1C assays, a reported value of 7.0 could actually be between 6.72 and 7.28 if measured by a reference method. A reported value of 9.0 could actually be between 8.73 and 9.27. Ref: http://www.ngs p.org/CAPdata. asp Ordering Provider: SHREYA SIMPSON Report Released Date/Time: May 17, 2024 09:21 AM Reporting Lab: [facility] [address] [address] Performing Lab: [address] [address] HEMOGLOBIN A1C 5.8 H 4.0-5.6 Nov 16, 2024 09:23 AM [facility] LIPID PANEL FASTING Specimen Type: SERUM No comment entered. Ordering Provider: SHREYA SIMPSON Report Released Date/Time: May 17, 2024 09:21 AM Reporting Lab: [facility] [address] [address] Performing Lab: [address] [address] CHOLESTEROL 232 mg/dL H TRIGLYCERIDE 202 mg/dL H 0-150 LDL calculated 141 mg/dL H 0-129 CHOL/HDL 4.5 HDL CHOLESTEROL 51 mg/dL 40-60 Nov 16, 2024 09:23 AM [facility] LIVER FUNCTION Specimen Type: SERUM No comment entered. Ordering Provider: SHREYA SIMPSON Report Released Date/Time: May 17, 2024 09:21 AM Reporting Lab: [facility] [address] [address] Performing Lab: [address] [address] PROTEIN,TOTAL 7.8 g/dL 6.0-8.3 ALBUMIN 4.2 g/dL 3.5-5.0 ALKALINE PHOSPHATASE 46 U/L 40-150 AST 31 U/L 5-34 ALT 32 U/L BILIRUBIN, TOTAL 0.6 mg/dL 0.2-1.2 Nov 16, 2024 09:23 AM [facility] BASIC METABOLIC PANEL (fasting) Specimen Type: SERUM No comment entered. Ordering Provider: SHREYA SIMPSON Report Released Date/Time: May 17, 2024 09:21 AM Reporting Lab: [address] [address] Performing Lab: [address] [address] UREA NITROGEN 15 mg/dL 7-25 GLUCOSE 111 mg/dL H 65-100 SODIUM 139 mmol/L 135-145 POTASSIUM 4.3 mmol/L 3.5-5.0 CHLORIDE 105 mmol/L 100-110 CO2 24 meq/L 20-30 CALCIUM 9.1 mg/dL 8.5-10.2 CREATININE, Serum 1.07 mg/dL 0.50-1.40 eGFR(CKD-EPI 2020) 69 mL/min >60 Nov 16, 2024 09:23 AM [facility] TSH Specimen Type: SERUM No comment entered. Ordering Provider: SHREYA SIMPSON Report Released Date/Time: May 17, 2024 09:21 AM Reporting Lab: [address] [address] Performing Lab: [address] [address] TSH 1.71 u[IU]/mL 0.35-5.00 Nov 16, 2024 09:23 AM [facility] CBC AND DIFF (AUTO) Specimen Type: BLOOD No comment entered. Ordering Provider: SHREYA SIMPSON Report Released Date/Time: May 17, 2024 09:21 AM Reporting Lab: [facility] [address] [address] Performing Lab: [facility] [address] [address] WBC 7.25 10*3/uL 4.50-11.00 RBC 4.94 10*6/uL 4.23-5.66 HGB 16.2 g/dL 12.8-17 HCT 46.6 39.2-50.4 MCV 94.3 fL 82-99 MCHC 34.8 g/dL 30.8-35.1 PLT 264 10*3/uL 140-360 RDW-CV 12.4 12.0-16.0 MONO, ABS 0.50 10*3/uL 0.30-1.10 MCH 32.8 pg H 26.2-32.6 NEUT % 56.3 43.7-75.8 LYMPH % 32.6 14.0-42.3 MONO % 6.9 5.1-13.7 EOS % 3.3 0.4-6.8 BASO % 0.6 0.1-2.0 NEUT, ABS 4.09 10*3/uL 2.20-7.60 LYMPH, ABS 2.36 10*3/uL 1.00-3.20 EOS, ABS 0.24 10*3/uL 0.03-0.44 BASO, ABS 0.04 10*3/uL 0.01-0.13 IMMATURE GRAN % 0.3 0.0-0.7 IMMATURE GRAN, ABS 0.02 10*3/uL 0.00-0.06 NRBC % 0.0 0.0-0.0 NRBC, ABS 0.00 10*3/uL 0.00-0.00 Immunizations: All administered on the encounter date This section contains immunizations associated to the Encounter. Immunization Series Date Issued Reaction Comments HEP B, ADULT 2 Nov 20, 2024 Social History: Smoking Status (Most current) and Tobacco Use (All prior to encounter date) This section includes the most current, and the historical, smoking and tobacco- related health factors from the [place] facility where the Encounter took place. Current Smoking Status This section includes the most current smoking, or tobacco-related health factor, from the [place] facility where the Encounter took place. Date/Time Current Smoking Status Comment Facil ity January 23, 2024 10:00 AM VA-TOBACCO NEVER USED [place] [facility] [place] [facility] Tobacco Use History This section includes a history of the smoking, or tobacco-related health factors, that were collected on or before the date of the Encounter. The data comes from the [place] facility where the Encounter took place. Date/Time Smoking Status/Tobacco Use Comment F acility Dec 11, 2022 09:30 AM VA-TOBACCO NEVER USED [facility] [place] [facility] Dec 28, 2021 09:00 AM VA-TOBACCO NEVER USED [facility] [place] [facility] Oct 02, 2020 11:00 AM VA-TOBACCO NEVER USED [facility] [place] [facility] Aug 18, 2018 10:48 AM VA-TOBACCO NEVER USED [facility] [place] [facility] Dec 08, 2017 08:55 AM LIFETIME NON-TOBACCO USER [facility] [place] [facility] Nov 28, 2016 10:51 AM LIFETIME NON-TOBACCO USER [facility] [place] [facility]
--- OUTSIDE RECORDS SUMMARY | 2024-11-23 08:11 | XMS_ITS ---
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 Role Phone SHREYA SIMPSON Primary Care [...] MANOHAR MEDEX BRONZ E Aug 22, 2005 [id number] BURKEIAAAYUSH ANDERSEN PATIENT BCBS [place] MEDICARE SUPPLEMEN MANOHAR MEDEX BRONZ E Aug 22, 2007 [id number] MASCIADRReginald LLAAYUSH Sagastume T PATIENT BCBS [place] MEDICARE SUPPLEMEN MANOHAR MEDEX BRONZ E Aug 22, 2007 [id number] [phone] BURKEIADRAAYUSH DAS PATIENT BCBS OF [facility] MEDICARE SUPPLEMEN MANOHAR PSUED O MEDEX BRONZ E Aug 22, 2007 [id number] BURKEIADRAAYUSH DAS PATIENT MEDICARE (WNR) MEDICARE (M) PART B Aug 22, 2007 PART B [id number] CRISTIANDRE LLI,AAYUSH T PATIENT MEDICARE (WNR) MEDICARE (M) PART A Aug 22, 2007 PART A [id number] MASCIADRE LLI,AAYUSH T PATIENT MEDICARE (WNR) MEDICARE (M) PART B Aug 22, 2007 PART B [id number] MASCIADRE LLI,AAYUSH T PATIENT MEDICARE (WNR) MEDICARE (M) PART A Aug 22, 2007 PART A [id number] BURKEIADRE LLI,AAYUSH T PATIENT MEDICARE (WNR) MEDICARE (M) PART B Aug 22, 2007 PART B [id number] BURKEIADRE LLAAYUSH Sagastume T PATIENT MEDICARE (WNR) MEDICARE (M) PART A Aug 22, 2007 PART A [id number] CRISTIANDRReginald LLAAYUSH Sagastume PATIENT Selected Encounter This section includes the information on record at [place] for the Encounter. Date/Time Encounter Type Encounter Description Reason Pro vider Source Jan 14, 2024 02:12 PM Outpatient Encounter ADMIN PAT ACTIVTIES (MASNONCT) IHE Encounter Template Text not used by [place] Plan of Treatment: Future Appointments (+ 6 months) and Future Tests (+/- 45 days) The Plan of Treatment section includes future care activities for the patient from all [place] treatmentfacilities. This section includes future appointments and future orders which are active, pending or scheduled. Future Appointments This section includes appointments that were scheduled to occur 6 months from the date of the Encounter, up to a maximum of 20 appointments. The data comes from all [place] treatment facilities. Appointment Date/Time Appointment Type Appointme nt Facility Name January 23, 2024 10:00 AM AMBULATORY - MEDICINE [facility] ENRIQUE MARISABEL MCLEANDARVIN [facility] Mar 17, 2024 01:00 PM [facility] May 17, 2024 09:00 AM AMBULATORY - MEDICINE [facility] NTR MARISABEL [facility] May 18, 2024 09:00 AM AMBULATORY - MEDICINE [facility] [place] [facility] Jun 15, 2024 01:00 PM AMBULATORY - MEDICINE [facility] [place] [facility] Jun 17, 2024 09:30 AM AMBULATORY - MEDICINE [facility] [place] [facility] Jun 22, 2024 02:15 PM AMBULATORY - REHAB MEDICIN E [facility] [place] [facility] Jul 09, 2024 09:30 AM AMBULATORY - MEDICINE [facility] [place] [facility] Jul 09, 2024 09:31 AM AMBULATORY - MEDICINE [place] [facility] [place] [facility] Social History: Smoking Status (Most current) and Tobacco Use (All prior to encounter date) This section includes the most current, and the historical, smoking and tobacco- related health factors from the [place] facility where the Encounter took place. Current Smoking Status This section includes the most current smoking, or tobacco-related health factor, from the [place] facility where the Encounter took place. Date/Time Current Smoking Status Comment Nguyen walker Dec 11, 2022 09:30 AM [facility] Tobacco Use History This section includes a history of the smoking, or tobacco-related health factors, that were collected on or before the date of the Encounter. The data comes from the [place] facility where the Encounter took place. Date/Time Smoking Status/Tobacco Use Comment Mariaelena luther Dec 28, 2021 09:00 AM VA-TOBACCO NEVER USED [facility] [place] [facility] Oct 02, 2020 11:00 AM VA-TOBACCO NEVER USED [facility] [place] [facility] Aug 18, 2018 10:48 AM VA-TOBACCO NEVER USED [facility] [place] [facility] Dec 08, 2017 08:55 AM LIFETIME NON-TOBACCO USER [facility] [place] [facility] Nov 28, 2016 10:51 AM LIFETIME NON-TOBACCO USER [place] [facility] [place] [facility] Encounter Notes: All associated encounter notes This section contains the clinical notes associated to the Encounter. Date/Time Encounter Note(s) Provider Source Jan 14, 2024 02:12 PM PHARMACY NOTE: LOCAL TITLE: PHARMACY CUSTOMER CARE MEDICATION RENEWAL STANDARD TITLE: PHARMACY NOTE DATE OF NOTE: JAN 14, 2024@14:12 ENTRY DATE: JAN 14, 2024@14:12:46 AUTHOR: KAMLESH LANZA EXP COSIGNER: URGENCY: STATUS: COMPLETED Date: Dec Division: [place] Pt referred by Pharmacy Call Center for medication renewal: Non-controlled/maintenan ce medication Medications requested: [id number] EZETIMIBE 10MG TAB Wh Primary Care Provider: SHREYA SIMPSON Paper Machine Back Tender: JOVITA VELASQUEZ Defer to primary care provider To be mailed . Please review and renew if appropriate. *This note was generated by [facility]/[place] Pharmacy Customer Care. If you have any questions or need assistance, do not contact this author. Please refer all questions to your local, on-site pharmacy departments. /enrrique/ KAMLESH LANZA [facility] Cooler Service Supervisor , [place]/Pharmacy Customer Care Signed: 01/14/2024 14:13 Receipt Acknowledged By: 01/16/2024 16:08 /enrrique/ YANE ACEVEDO Nurse Practitioner 01/14/2024 14:14 /enrrique/ JOVITA VELASQUEZ, MSN, RN, CNL PRIMARY CARE TEAM NURSE KAMLESH LANZA [facility]
--- OUTSIDE RECORDS SUMMARY | 2024-11-23 08:11 | XMS_ITS ---
Author Name [facility] [facility] [place] [facility] [place] Address [address] [place] [address] Care Team Providers Care Histotechnician Name Role Phone SHREYA SIMPSON Primary Care [...] MANOHAR MEDEX BRONZ E Aug 22, 2007 [id number] AAYUSH AYON PATIENT BCBS IN MEDICARE SUPPLEMEN MANOHAR MEDEX BRONZ E Aug 22, 2007 [id number] BURKEIADRReginald LLAAYUSH Sagastume T PATIENT BCBS IN MEDICARE SUPPLEMEN MANOHAR MEDEX BRONZ E Aug 22, 2007 [id number] BURKEIADRReginald LLAAYUSH Sagastume PATIENT BCBS OF [facility] MEDICARE SUPPLEMEN MANOHAR PSUED O MEDEX BRONZ E Aug 22, 2007 [id number] BURKEIADRE LLI,AAYUSH T PATIENT MEDICARE ([place]NR) MEDICARE (M) PART B Aug 22, 2007 PART B [id number] MASCIADRE LLI,AAYUSH T PATIENT MEDICARE (WNR) MEDICARE (M) PART B Aug 22, 2007 PART B [id number] MASCIADRE LLI,AAYUSH T PATIENT MEDICARE (WNR) MEDICARE (M) PART A Aug 22, 2007 PART A [id number] MASCIADRE LLI,AAYUSH T PATIENT MEDICARE (WNR) MEDICARE (M) PART A Aug 22, 2007 PART A [id number] MASCIADRE LLI,AAYUSH T PATIENT MEDICARE (WNR) MEDICARE (M) PART B Aug 22, 2007 PART B [id number] MASCIADRE LLI,AAYUSH T PATIENT MEDICARE (WNR) MEDICARE (M) PART A Aug 22, 2007 PART A [id number] [phone] MASCIADRE LLI,AAYUSH T PATIENT Selected Encounter This section includes the information on record at [place] for the Encounter. Date/Time Encounter Type Encounter Description Reason Provider Source Jun 22, 2024 02:15 PM PT EVAL HIGH COMPLEX 45 MIN PHYSICAL THERAPY ICD-10-CM R42 Dizziness and giddiness NELL ASHRAF [facility] Encounter Template Text not used by [place] Assessments - Encounter Diagnoses This section includes the primary and secondary diagnoses documented for the Encounter. Date/Time Primary/Secondary Diagnosis Diagnosis Name Provider Source Jul 13, 2024 07:04 AM PRIMARY Dizziness and giddiness NELL ASHRAF [facility] [place] [facility] Plan of Treatment: Future Appointments (+ 6 months) and Future Tests (+/- 45 days) The Plan of Treatment section includes future care activities for the patient from all [place] treatmentfacilities. This section includes future appointments and future orders which are active, pending or scheduled. Future Appointments This section includes appointments that were scheduled to occur 6 months from the date of the Encounter, up to a maximum of 20 appointments. The data comes from all [place] treatment facilities. Appointment Date/Time Appointment Type Appointme nt Facility Name Jul 09, 2024 09:30 AM AMBULATORY - [facility]ICINE [facility] [place] [facility] Jul 09, 2024 09:31 AM [facility] Aug 13, 2024 01:00 PM [facility] Oct 13, 2024 01:00 PM AMBULATORY - SURGERY [facility] Nov 22, 2024 09:00 AM [facility] Active, Pending, and Scheduled Orders This section includes a listing of several types of active, pending, and scheduled orders, including clinic medications orders, diagnostic test orders, procedure orders and consult orders; where the start date of the order is 45 days before the date of the Encounter or 45 days after the date of theEncounter. The data comes from all [place] treatment facilities. Test Date/Time Test Type Test Details Facility Name May 17, 2024 12:00 AM Laboratory - Chemi stry Order PSA BLOOD (SST[facility]SERUM) [facility] Jun 17, 2024 03:49 PM Consult Order COMMUNITY CARE-OPHTHALMOLOGY Cons Electrician Substation Supervisor's Choice [facility] Social History: Smoking Status (Most current) and Tobacco Use (All prior to encounter date) This section includes the most current, and the historical, smoking and tobacco- related health factors from the [place] facility where the Encounter took place. Current Smoking Status This section includes the most current smoking, or tobacco-related health factor, from the [place] facility where the Encounter took place. Date/Time Current Smoking Status Comment Facil ity January 23, 2024 10:00 AM VA-TOBACCO NEVER USED [facility] Tobacco Use History This section includes a history of the smoking, or tobacco-related health factors, that were collected on or before the date of the Encounter. The data comes from the [place] facility where the Encounter took place. Date/Time Smoking Status/Tobacco Use Comment F acility Dec 11, 2022 09:30 AM VA-TOBACCO NEVER USED [facility] [place] [facility] Dec 28, 2021 09:00 AM VA[facility]TOBACCO [facility] USED [facility] Oct 02, 2020 11:00 AM VA-TOBACCO NEVER USED [facility] [place] [facility] Aug 18, 2018 10:48 AM VA-TOBACCO NEVER USED [facility] [place] [facility] Dec 08, 2017 08:55 AM LIFETIME NON-TOBACCO USER [facility] [place] [facility] Nov 28, 2016 10:51 AM LIFETIME NON-TOBACCO USER [facility] [place] [facility] Encounter Notes: All associated encounter notes This section contains the clinical notes associated to the Encounter. Date/Time Encounter Note(s) Provider Source Jun 22, 2024 02:18 PM PHYSICAL THERAPY C ONSULT: LOCAL TITLE: PHYSICAL THERAPY CONSULT STANDARD TITLE: PHYSICAL THERAPY CONSULT DATE OF NOTE: JUN 22, 2024@14:18 ENTRY DATE: JUN 22, 2024@14:18:12 AUTHOR: NELL ASHRAF EXP COSIGNER: URGENCY: STATUS: COMPLETED Initial Evaluation date: 06/22/24 Progress Note Date: Treatment #: 0 Treatment time: 45' Diagnosis: Dizziness and giddiness Provider: Serge PT Treatment Precautions: none Patient identified by full name and date of S: Feels like when he's walking and he turns his head he loses his balance. Reports that he also notices when he turns his head he gets some cracking in his neck. Reports this happens every once in a while. Feels like it's being on a boat, sea sick. Started noticing it in the last 8 months. R eye corneal transplant Symptom Nature: feels lightheaded when walking Symptom Duration: lasts a few minutes Frequency: haven't had for a few days, sometimes can have daily Positioning Sx: lay down from sitting N sit up from laying N roll rt. or lt. in bed N stand up from sitting Y turn head rt. or lt. Y bend over N straighten from bending N look up or down N Diplopia(-) Dysarthria (-) Dyphonia(-) Dysphagia(-) Dysmetria(-) Drop Attacks(-) Active problems - Computerized Problem List is the source for the followin. Seasonal allergy 2. Steatosis of liver 3. Cornea transplant recipient 4. Glaucoma 5. Disorder of parathyroid glands 6. Decreased vitamin D 7. Keratoconus of bilateral corneas 8. Serum triglycerides raised 9. Keratoconus 10. Open-angle glaucoma of right eye (SNOMED CT [id number]) 11. H/O: surgery 12. H/O: surgery 13. Dyslipidemia Scans (MRI/CT): None Motion Intolerance: no likes to walk for exercise, walks around the neighborhood Other Symptoms: Oscillopsia N Falls N Imbalance Y Exertion induced N Extremity numbness or weakness N LOC N Visual Sx Y, one eye sees distance, one near, depth perception off PRECAUTIONS: No head CT or MRI Auditory Symptoms: tinnitus: B aural fullness: N perceived hearing loss: N Ear Surgery: N Middle Ear Dx: N Predisposing Factors: head injury: N neck injury: stiffness ototoxic drugs: N toxic chemicals: N flu / virus: N migraine: CASTELLON in the back of the head, no migraines eye disease: N Social History: Retired Current Medications: no meclizine, takes eye drops Modified Vertebral-basilar artery Insufficiency test: Negative Somatosensory: Light touch [x ] Normal [ ] Impaired Proprioception: NT Oculomotor/Vestibular Testing: Saccades: WFL Smooth Pursuit: WFL Gaze Evoked Nystagmus: none VOR: cancellation Intact Symptomatic? N head thrust- horizontal intact Testing w/ vision blocked: Nystagmus: spontaneous Neg gaze evoked Neg Headshaking Induced Nystagmus: WNL Tragal Compression: Neg Closed nasal passages: Neg Valsalva: Neg Positional Testing: Layla - Hallpike: R WNL L WNL Roll Test: NT Dynamic Visual Acuity Horizontal: 2 Line change, symptomatic Head/Neck differentiation: N/A or nt Postural Control: Modified CTSIB Romberg: eyes open: 30 eyes closed: 30 Foam EO: 30 Foam EC: 25 sec LOB Functional Gait Assessment: 3 Gait level surface 3 Change in gait speed 2 Gait with horizontal head turns 2 Gait w/ vertical head turns 2 Gait and pivot turn 2 Step over obstacle 2 Gait w/ Narrow Base of support 2 Gait with eyes closed 2 Ambulating backwards 3 Steps Treatment: Discussion of findings and POC Patient education was provided for all aspects of care during this clinical encounter. CANALITH REPOSITIONING: MINUTES GAIT TRAINING: MINUTES: NEUROMUSCULAR EDUCATION: MINUTES: SELF CARE/EDUCATION: MINUTES: discussed of trekking poles, findings, POC IMPRESSION: Pt w/ dizziness, no spinning, positional vertigo testing is negative. Dizziness more disoriented feeling reproduced w/ eyes closed and head turning. Visually reliance w/ balance, possible delayed ankle response w/ vision changes d/t visual history. Pt w/ good balance testing. Would benefit from trekking poles, ordered to be sent to pt's home address. PLAN: No PT scheduled at this time. Pt will receive trekking poles. Suicide Screen: C-SSRS Screening [place]-Suicide Severity Rating Scale (C-SSRS Screener) 1. Over the past month, have you wished you were or wished you could go to sleep and not wake up? No 2. Over the past month, have you had any actual thoughts of killing yourself? No 3. Over the past month, have you been thinking about how you might do this? Response not required due to responses to other questions. 4. Over the past month, have you had these thoughts and had some intention of acting on them? Response not required due to responses to other questions. 5. Over the past month, have you started to work out or worked out the details of how to kill yourself? Response not required due to responses to other questions. 6. If yes, at any time in the past month did you intend to carry out this plan? Response not required due to responses to other questions. 7. In your lifetime, have you ever done anything, started to do anything, or prepared to do anything to end your life (for example, collected pills, obtained a gun, gave away valuables, went to the roof but didn't jump)? No 8. If YES, was this within the past 3 months? Response not required due to responses to other questions. /enrrique/ Nell Ashraf PT,DPT PHYSICAL THERAPIST Signed: 06/22/2024 15:[address] [facility]
--- OUTSIDE RECORDS SUMMARY | 2024-11-23 08:11 | XMS_ITS | Encounter Summary ---
Author Name [facility] [place] [facility] [place] [facility] [place] Address [address] [place] [address] Care Team Providers Care Dispatcher Service Chief Name Role Phone SHREYA SIMPSON Primary Care [...] Traore's Name Patient's Relationship to Policy Traore ANTHEM BCBS OF [place] (BLUECARD) MEDICARE SUPPLEMEN MANOHAR MEDEX BRONZ E Aug 22, 2007 [id number] AAYUSH AYON PATIENT [place] SUPPLEMEN [place] MEDEX BRONZ E Aug 22, 2007 [id number] AAYUSH AYON [place]IENT [place] SUPPLEMEN [place] MEDEX BRONZ E Aug 22, 2007 [id number] AAYUSH AYON PATIENT BCBS [facility] MEDICARE SUPPLEMEN MANOHAR PSUED O MEDEX BRONZ E Aug 22, 2007 [id number] AAYUSH AYON PATIENT MEDICARE (WNR) MEDICARE (M) PART B Aug 22, 2007 PART B [id number] MASCIADRE LLI,AAYUSH T PATIENT MEDICARE (WNR) MEDICARE (M) PART B Aug 22, 2007 PART B [id number] [phone] [id number] MASCIADRE LLI,AAYUSH T PATIENT MEDICARE (WNR) MEDICARE (M) PART A Aug 22, 2007 PART A [id number] [phone] [id number] MASCIADRE LLI,AAYUSH T PATIENT MEDICARE (WNR) MEDICARE (M) PART A Aug 22, 2007 PART A [id number] MASCIADRE LLI,AAYUSH T PATIENT MEDICARE (WNR) MEDICARE (M) PART B Aug 22, 2007 PART B [id number] MASCIADRE LLI,AAYUSH T PATIENT MEDICARE (WNR) MEDICARE (M) PART A Aug 22, 2007 PART A [id number] MASCIADRE LLI,AAYUSH T PATIENT Selected Encounter This section includes the information on record at [place] for the Encounter. Date/Time Encounter Type Encounter Description Reason Provider Source Oct 13, 2024 01:00 PM OFFICE O/P EST HI 40 MIN OPTOMETRY ICD-10-CM H18.613 Keratoconus, stable, bilateral LITA FRIEDMAN Reginald Encounter Template Text not used by [place] Assessments - Encounter Diagnoses This section includes the primary and secondary diagnoses documented for the Encounter. Date/Time Primary/Secondary Diagnosis Diagnosis Name Provider Source Nov 11, 2024 11:09 AM PRIMARY Keratoconus, stable, bilateral LITA FRIEDMAN [facility] Nov 11, 2024 11:09 AM SECONDARY Corneal ectasia, bilateral LITA FRIEDMAN [facility] Nov 11, 2024 11:09 AM SECONDARY Corneal transplant status LITA FRIEDMAN [facility] Nov 11, 2024 11:09 AM SECONDARY Dry eye syndrome of bilateral lacrimal glands LITA FRIEDMAN [facility] Nov 11, 2024 11:09 AM SECONDARY Irregular astigmatism, bilateral LITA FRIEDMAN [facility] Plan of Treatment: Future Appointments (+ 6 months) and Future Tests (+/- 45 days) The Plan of Treatment section includes future care activities for the patient from all [place] treatmentfacilities. This section includes future appointments and future orders which are active, pending or scheduled. Future Appointments This section includes appointments that were scheduled to occur 6 months from the date of the Encounter, up to a maximum of 20 appointments. The data comes from all [place] treatment facilities. Appointment Date/Time Appointment Type Appointme nt Facility Name Nov 22, 2024 09:00 AM [place] [facility] [place] [facility] Dec 29, 2024 09:00 AM [place] [facility] [place] [facility] Dec 29, 2024 09:30 AM [place] [facility] [place] [facility] Encounter Notes: All associated encounter notes This section contains the clinical notes associated to the Encounter. Date/Time Encounter Note(s) Provider Source Oct 13, 2024 12:08 PM OPTOMETRY NOTE: LOCAL TITLE: OPTOMETRY STANDARD TITLE: OPTOMETRY NOTE DATE OF NOTE: OCT 13, 2024@12:08 ENTRY DATE: OCT 13, 2024@12:08:42 AUTHOR: LITA FRIEDMAN EXP COSIGNER: URGENCY: STATUS: COMPLETED 84 WHITE MALE presents for a contact lens exam. Last CL exam 02/2024. Here for CL check w/ scleral lenses. - HPI: originally referred by Dr. Mckeon [facility]. 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 Modified monovision OD distance, OS intermediate (for dashboard). Chief Complaint: very happy with the vision and comfort with sclerals OD/OS. Filling half with AddiPak and half with Refresh Celluvisc. Cleans/disinfects with ClearCare nightly. Also uses BostonSimplus. Overall, doing very well. Happy with sclerals and able to wear the full day. Recently RIGHT lens cracked/broke and I placed a prosthetics consult to re-order the lens yesterday. (+) Eye Surgery: h/o corneal transplant 1986 then 2009 OD, CE/PCIOL OD only. Followed every 6mo by Dr. Pradeep Hudson -> HVFs are being done at [facility] optometry with Dr. Mckeon. EYE MEDS: ALL RIGHT EYE ONLY - Zioptan QHS OD - PF timolol 0.5% BID OD - specialty compounded cyclosporine 0.5% Qdaily OD ([facility]) - FML 0.25% Qdaily OD Patient denies flashes, floaters, eye pain/ache/strain, sudden vision loss, or diplopia. OcHx: 1. 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 Open angle glaucoma OD -> [place] in [place] community [place]. Pseudophakia OD 4. Nuclear sclerosis Cataracts OS 5. refractive error OU/presbyopia NON-[facility] MEDS: - CLOBETASOL PROPRIONATE 0.1% OINTMENT - FENOFIBRATE 54MG TABLETS - EZETIMIBE 10MG TABLETS - ASA 81MG DAILY - CETIRIZINE HCL 10MG IMMUNIZATIONS FOLLOWS: - 6 COVID SHOTS AT [facility] [place] - [place] JUL 2020 & SEP 2020 @[facility] - FLU SHOT 05/2024 AT [facility] - PNEUMONIA 06/2022 - TETANUS 2015 - HEP B VACCINE 09/2022 AND 11/2022 PMH as below - no relevant changes. Social: visits [place] yearly, just went in Jun 2024. A&Ox3. -------- MEDICAL HISTORY: Code Description H18.613 Keratoconus ([facility] [id number]) Z94.7 Cornea transplant recipient ([facility] [id number]) Active Outpatient Medications (including Supplies): Active Outpatient Medications Status 1) CARBOXYMETHYLCELLULOSE 1% OPH GEL 0.4ML INSTILL 1 DROP (PF ACTIVE 1%) INTO EACH EYE TWICE A DAY Indication: FOR DRY EYE 2) CONTACT LENS CLEANING (CLEAR CARE) SOLN SMALL AMOUNT ACTIVE DIRECTED BY PROVIDER NIGHTLY USE NIGHTLY FOR DISINFECTING SCLERAL LENSES Indication: FOR CONTACT LENS 3) CONTACT LENS SOLN (CrossCore SIMPLUS) (SIMPLUS) DIRECTED BY ACTIVE PROVIDER EVERY DAY Indication: FOR CONTACT LENS 4) SODIUM CHLORIDE 0.9% INHL 3ML INHALE 1 AMPULE (0.9%) 3ML ACTIVE DIRECTED BY PROVIDER EVERY DAY Indication: SCLERAL LENSES Allergies:ROSUVASTATIN, LIPITOR, BRIMONIDINE -------- OCULAR HISTORY: STACY: 03/17/2024 forwarded: A/P: 1. 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 Lopez @[facility], last seen ~04/2023 [facility] 09/04/2023 OD/OS; OD distance, OS intermed - Lens set #3 eval: DVA OU 20/25, NVA OU 20/30 FINAL RX/PARAMETERS => ordered 11/19/2023 SCLERAL LENS RX: Right Left Shila: 17.5 18.0 Base: 45.50 45.50 SA 5749 Power: +2.50 -0.75 PC1: 7.13/2.60 7.29/2.85 PC2: 13.83/1.65 14.5/1.65 TPC: 500um 500um dot: 1 blackened 2 blackened --------- MFG: [employer] LENS TYPE: EUROPA TANGENT Material: [id number] + hydrapeg, clear // Pt edu on ocular findings, continue with lens set #3 = FINAL. Fill with AddiPak + PF-CMC 1% to cushion bowl of the lens OD (mild SN touch). Continue cleaning/disinfecting with ClearCare and/or BostonSimplus. RTC 6mo for scleral lens check + updated pentacam, sooner PRN. Below items not fully assessed today: 2. Mild Secondary Open angle glaucoma OD --> [place] in the community [place]adeep [place] [place] app[place]: 05/[place] - Zioptan QHS OD - PF timolol 0.5% BID OD 3. Dry eye syndrome OU - specialty compounded cyclosporine 0.5% Qdaily OD ([facility]) 4. S/p corneal transplant x2 OD (1986 + 2009) - FML 0.25% Qdaily OD 5. Pseudophakia OD 6. Cataracts OS -> becoming more visually significant to undilated view // RTC 6mo for scleral lens check + pentacam, sooner PRN. Maintain all f/u with Dr. Mckeon @[facility] (next: 06/17/2024) & Dr. Hudson [place] [place]). FEH: glaucoma (-) amd (-) -------- SOCIAL HISTORY: smoking (-) alcohol (+) occasionally with dinner EXAMINATION: DVA cc (sclerals, lens #2 OD and #3 OS) last w/ set #3 OU: 20/20-2 20/25+1 OD: 20/25+1 20/25+1 OS: 20/50-2, PH 20/40+2 20/50-2, PH 20/30+ NVA OU: 20/40 20/30 PUPILS: ERRL -APD VERSIONS: SAFE OU SLIT LAMP EXAM: L/L: MGD OD/OS, dermatochalasis OU CONJ: white and quiet OD/OS CORNEA: OD: s/p PKP w/ 3 sutures remaining (none loose) @6:00, 7:00, 2:00; peripheral neovascularization inferiorly 5:00--7:00 & superiorly 11:00--2:00 to graft; no Kedema, no signs of rejection, +scarring 360 from old sutures, feathery ant stromal scarring scarring SN adjacent to graft-host jct OS: clear (no clinical signs of KCN; no Natasha ring, no vogt striae, no hydrops) IRIS: flat/clear OD/OS AC: deep/quiet OD/OS LENS: OD: PCIOL (undilated) OS: 2+ NS w central dense PSC (undilated) IOP by Goldmann @1:23PM OD: 14mmHg OS: 11mmHg CORNEAL TOPOGRAPHY (PENTACAM) 09/04/2023) OD: 42.8/45.1@28.6, CCT 573um, KMax 61.9D sup, no ectasia s/p PKP OS: 52.4/56.2@76.4, CCT 398um, KMax 63.7D, ant/post elevation w/ ectasia inferiorly c/w KCN CONTACT LENS INFO: -> see previous notes for prior info on PROSE & [facility] SL fitting. NOTES: 10/13/2024 WEARING LEFT LENS (#3) BELOW & RIGHT LENS (#2) BELOW FINAL RX/PARAMETERS => ordered 11/19/2023 SCLERAL LENS RX: SET #3 WEARING THIS LEFT LENS TODAY Right Left Shila: 17.5 18.0 Base: 45.50 45.50 SA 5749 Power: +2.50 -0.75 PC1: 7.13/2.60 7.29/2.85 PC2: 13.83/1.65 14.5/1.65 TPC: 500um 500um dot: 1 blackened 2 blackened --------- MFG: [employer] LENS TYPE: EUROPA TANGENT Material: [id number] + hydrapeg, clear OS ID: [id number] SET #2 -> WEARING RIGHT LENS FROM BELOW SCLERAL LENS RX: Right Left Shila: 17.5 18.0 Base: 45.50 45.50 SA 5749 Power: +2.50 -0.75 PC1: 7.29/2.60 7.29/2.85 PC2: 13.83/1.65 14.0/1.65 TPC: 500um 500um dot: 1 blackened 2 blackened --------- MFG: [employer] LENS TYPE: EUROPA TANGENT Material: [id number] + hydrapeg, clear OD ID: [id number] FIT ASSESSMENT: also see -OCT OD: [id number], central FR ~100um, close apposition sup/sup-nasal with focal SN touch at graft-host jct; hashmarks 11:00--5:00 OS: [id number], central FR ~250um, 150um FR midperiph 360, hashmarks 9:00--3:00; pannus IN (still present on lens removal), mild EL N/T NaFL paint on front surface: OD: mild uptake at 6&12 OS: mild uptake ?360 with most uptake at 3:00 -- 9:00 NaFL post lens removal OD: mild MCE in host tissue T, +/- staining whorl pattern OS: +/- staining whorl pattern OPTOMETRY CONTACT LENS CLINIC ASSESSMENT & PLAN: A/P: 1. 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 Lopez @[facility], last seen ~04/2023 - [place] S[place] 09/04/2023 OD/OS; OD distance, OS intermed - FINAL SL RX = Lens set #3 eval: DVA OU 20/25, NVA OU 20/30 - recently broke R lens, awaiting replacement still, wearing older lens OD (lens #2) - ordering duplicate set of FINAL RX (ordered 11/19/2023 OD/OS) FINAL RX/PARAMETERS => FINALIZED 11/19/2023, ORDERING 10/13/2024 SCLERAL LENS RX: Right Left Shila: 17.5 18.0 Base: 45.50 45.50 SA 5749 Power: +2.50 -0.75 PC1: 7.13/2.60 7.29/2.85 PC2: 13.83/1.65 14.5/1.65 TPC: 500um 500um dot: 1 blackened 2 blackened --------- MFG: [employer] LENS TYPE: EUROPA TANGENT Material: [id number] + hydrapeg, clear // Pt edu on ocular findings, continue with current lenses (OD lens #2, OS lens #3). Ordered back up pair of R/L lenses from 10/2023 (FINAL RX). Also awaiting replacement RIGHT lens. Fill with AddiPak + PF-CMC 1% to cushion bowl of the lens OD (mild SN touch). Continue cleaning/disinfecting with ClearCare and/or BostonSimplus. RTC 6mo for scleral lens check + updated pentacam, sooner PRN. REVIEWED CL HYGIENE: Always wash and dry hands before handling contact lenses. Clean contact lenses as directed, NO WATER. Store contact lenses in proper storage case, replacing at least every 3 months. Do not sleep, swim or shower in contact lenses. Clearcare is a hydrogen peroxide solution and cannot be used directly in the eye. You must use the ClearCare specific case to neutralize the solution for at least 6 hours. Rinse scleral lenses completely with NaCl solution and fill with NaCl solution. Discontinue CL wear and RTC immediately w/ any sign of CL-related infection including redness, discharge, photophobia, blurriness, pain, etc. Below items not fully assessed today: 2. Mild Open angle glaucoma OD --> [place] Pradeep [place] [place] - PF timolol 0.5% BID OD 3. Dry eye syndrome OU - specialty compounded cyclosporine 0.5% Qdaily OD ([facility]) 4. S/p corneal transplant x2 OD (1986 + 2009) - FML 0.25% Qdaily OD 5. Pseudophakia OD 6. Cataracts OS -> becoming more visually significant to undilated view // RTC 6mo for scleral lens check + pentacam, sooner PRN. Maintain all f/u with Dr. Mckeon @[facility] (next: 12/29/2024) & Dr. Hudson [place] There are no barriers to communication with the patient. Total Time spent on preparation/review of existing data, exam, procedures, and documentation: 50min /enrrique/ LITA FRIEDMAN OD, MS, FAAO ATTENDING FOLDER HAND Signed: 10/13/2024 15:48 Receipt Acknowledged By: 10/14/2024 15:36 /enrrique/ JESSICA NOEL OD OPTOMETRY RESIDENT LITA FRIEDMAN [facility]
--- OUTSIDE RECORDS SUMMARY | 2024-11-23 08:11 | XMS_ITS ---
Author Name [facility] Organization [facility] Address [address] [place] [address] Care Team Providers Care Fibrous Wallboard Inspector Name Role Phone SHREYA SIMPSON Primary Care [...] MANOHAR MEDEX BRONZ E Aug 22, 2007 [id number] AAYUSH AYON PATIENT BCBS IN MEDICARE SUPPLEMEN MANOHAR MEDEX BRONZ E Aug 22, 2007 [id number] [phone] BURKEIADRAAYUSH DAS T PATIENT BCBS IN MEDICARE SUPPLEMEN MANOHAR MEDEX BRONZ E Aug 22, 2007 [id number] BURKEIADRAAYUSH DAS PATIENT BCBS OF [facility] MEDICARE SUPPLEMEN MANOHAR PSUED O MEDEX BRONZ E Aug 22, 2007 [id number] [phone] BURKEIADRAAYUSH DAS PATIENT MEDICARE (WNR) MEDICARE (M) PART B Aug 22, 2007 PART B [id number] [phone] MASCIADRE LLI,AAYUSH T PATIENT MEDICARE (WNR) MEDICARE () PART B Aug 22, 2007 PART B [id number] MASCIADRE LLI,AAYUSH T PATIENT MEDICARE (WNR) MEDICARE () PART A Aug 22, 2007 PART A [id number] MASCIADRE LLI,AAYUSH T PATIENT MEDICARE (WNR) MEDICARE () PART A Aug 22, 2007 PART A [id number] [phone] MASCIADRE LLI,AAYUSH T PATIENT MEDICARE (WNR) MEDICARE () PART B Aug 22, 2007 PART B [id number] [phone] MASCIADRE LLI,AAYUSH T PATIENT MEDICARE (WNR) MEDICARE () PART A Aug 22, 2007 PART A [id number] BURKEIADRE LLI,AAYUSH Gore PATIENT Selected Encounter This section includes the information on record at [place] for the Encounter. 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, right eye, stage unsp CALVINSHREYA FIGUEROA [facility] [place] [facility] Nov 22, 2024 12:34 PM SECONDARY Fatty (change of) liver, not elsewhere classified CALVIN,SHREYA GERRY [facility] [place] [facility] Nov 22, 2024 12:34 PM SECONDARY Hyperlipidemia, unspecified [facility] [place] [facility] Plan of Treatment: Future Appointments (+ 6 months) and Future Tests (+/- 45 days) The Plan of Treatment section includes future care activities for the [facility] This section includes future appointments and future orders which are active, pending or scheduled. Future Appointments This section includes appointments that were scheduled to occur 6 months from the date of the Encounter, up to a maximum of 20 appointments. The data comes from all [place] treatment facilities. Appointment Date/Time Appointment Type Appointme nt Facility Name Dec 29, 2024 09:00 AM AMBULATORY - MEDICINE [facility] Dec 29, 2024 09:30 AM AMBULATORY MEDICINE [facility] Apr 13, 2025 01:00 PM [facility] May 17, 2025 10:00 AM AMBULATORY MEDICINE [facility] May 20, 2025 09:00 AM AMBULATORY MEDICINE [facility] Lab Results: +/- 30 days of the encounter This section includes the Chemistry and Hematology Lab Results on record with [place] for the patient. Radiology Reports and Pathology Reports are provided separately, in subsequent sections. Lab Results This section contains the Chemistry/Hematology Results that were resulted 30 days before or 30 daysafter the date of the Encounter. Date/Time Source Result Type Result - Unit Interpretation Reference Range Comment Nov 16, 2024 09:23 AM [facility] LIPID PANEL FASTING Specimen Type: SERUM No comment entered. Ordering Provider: SHREYA SIMPSON Report Released Date/Time: May 17, 2024 09:21 AM Reporting Lab: [facility] [address] [facility] [address] Performing Lab: [address] [address] CHOLESTEROL 232 mg/dL H TRIGLYCERIDE 202 mg/dL H 0-150 LDL calculated 141 mg/dL H 0-129 CHOL/HDL 4.5 HDL CHOLESTEROL 51 mg/dL 40-60 Nov 16, 2024 09:23 AM [facility] LIVER FUNCTION Specimen Type: SERUM No comment entered. Ordering Provider: SHREYA SIMPSON Report Released Date/Time: May 17, 2024 09:21 AM Reporting Lab: [facility] [address] [facility] [address] Performing Lab: [address] [address] PROTEIN,TOTAL 7.8 g/dL 6.0-8.3 ALBUMIN 4.2 g/dL 3.5-5.0 ALKALINE PHOSPHATASE 46 U/L 40-150 AST 31 U/L 5-34 ALT 32 U/L BILIRUBIN, TOTAL 0.6 mg/dL 0.2-1.2 Nov 16, 2024 09:23 AM [facility] HEMOGLOBIN A1C PANEL Specimen Type: BLOOD [...] May 17, 2024 09:21 AM Reporting Lab: [facility] [address] [facility] [address] Performing Lab: [address] [address] HEMOGLOBIN A1C 5.8 H 4.0-5.6 Nov 16, 2024 09:23 AM [facility] BASIC METABOLIC PANEL (fasting) Specimen Type: SERUM No comment entered. Ordering Provider: SHREYA SIMPSON Report Released Date/Time: May 17, 2024 09:21 AM Reporting Lab: [facility] [address] [facility] [address] Performing Lab: [address] [address] UREA NITROGEN 15 mg/dL 7-25 GLUCOSE 111 mg/dL H 65-100 SODIUM 139 mmol/L 135-145 POTASSIUM 4.3 mmol/L 3.5-5.0 CHLORIDE 105 mmol/L 100-110 CO2 24 meq/L 20-30 CALCIUM 9.1 mg/dL 8.5-10.2 CREATININE, Serum 1.07 mg/dL 0.50-1.40 eGFR(CKD-EPI 2020) 69 mL/min >60 Nov 16, 2024 09:23 AM [facility] TSH Specimen Type: SERUM No comment entered. Ordering Provider: SHREYA SIMPSON Report Released Date/Time: May 17, 2024 09:21 AM Reporting Lab: [facility] [address] [facility] [address] Performing Lab: [facility] [address] [facility] [address] TSH 1.71 u[IU]/mL 0.35-5.00 Nov 16, 2024 09:23 AM [facility] CBC AND DIFF (AUTO) Specimen Type: BLOOD No comment entered. Ordering Provider: SHREYA SIMPSON Report Released Date/Time: May 17, 2024 09:21 AM Reporting Lab: [facility] [address] [facility] [address] Performing Lab: [facility] [address] [facility] [address] WBC 7.25 10*3/uL 4.50-11.00 RBC 4.94 10*6/uL [...] 0.0 0.0-0.0 NRBC, ABS 0.00 10*3/uL 0.00-0.00 Vital Signs: All taken on the encounter date This section contains inpatient and outpatient Vital Signs collected on the date of the Encounter. Date/Time Temperature Pulse Blood Pressure Respiratory Rate SP02 Pain Height Weight Body Mass Index Source Nov 22, 2024 09:12 AM 97.8 57 123/80 18 100 1 [facility] [place] [facility] Social History: Smoking Status (Most current) and Tobacco Use (All prior to encounter date) This section includes the most current, and the historical, smoking and tobacco- related health factors from the NE facility where the Encounter took place. Current Smoking Status This section includes the most current smoking, or tobacco-related health factor, from the NE facility where the Encounter took place. Date/Time Current Smoking Status Comment Facil ity January 23, 2024 10:00 AM VA-TOBACCO NEVER USED [facility] [place] [facility] Tobacco Use History This section includes a history of the smoking, or tobacco-related health factors, that were collected on or before the date of the Encounter. The data comes from the NE facility where the Encounter took place. Date/Time Smoking Status/Tobacco Use Comment F acility Dec 11, 2022 09:30 AM VA-TOBACCO NEVER USED [facility] [place] [facility] Dec 28, 2021 09:00 AM VA-TOBACCO NEVER USED [facility] [place] [facility] Oct 02, 2020 11:00 AM VA-TOBACCO NEVER USED [facility] [place] [facility] Aug 18, 2018 10:48 AM VA-TOBACCO NEVER USED [facility] [place] [facility] Dec 08, 2017 08:55 AM LIFETIME NON-TOBACCO USER [facility] [place] [facility] Nov 28, 2016 10:51 AM LIFETIME NON-TOBACCO USER [facility] [place] [facility] Encounter Notes: All associated encounter notes This section contains the clinical notes associated to the Encounter. Date/Time Encounter Note(s) Provider Source Nov 22, 2024 11:12 AM PRIMARY CARE NURSE PRACTITIONER OUTPATIENT NOTE: LOCAL TITLE: NURSE PRACTITIONER OUTPATIENT NOTE STANDARD TITLE: PRIMARY CARE NURSE PRACTITIONER OUTPATIENT NOTE DATE OF NOTE: NOV 22, 2024@11:12 ENTRY DATE: NOV 22, 2024@11:12:04 AUTHOR: SHREYA SIMPSON EXP COSIGNER: URGENCY: STATUS: COMPLETED Pt is a 84 who comes in for follow up of medical problems as noted below. 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 HPI: Glaucoma and Corneal transplants x2 with [facility]. follows with [facility] and [facility] every 6 months for routine eye care takes multiple eye drops timolol and tafluprost, also on Compounded Cyclosporin and has eye Lense all through [facility] Continues to do well Likes to have PSA checked annually he knows no need to cont. and is fine with that, PSA have been normal and no issues with urinary stream HLD Mixed Hyperlipidemia: takes fenofibrate 48mg tabs PO daily as well Ezetimibe 10mg tabs PO daily. His LDL has hovered around 130s-150s at one point was up closer to 190s in past, cannot take statins cause too many myalgias and weakness, las LDL 140s Fatty liver had fibro scan and was following with Hepatology BPs well controlled and trying to keep WT down, apparently was supposed to have CT scan f/u but looks like may have bene lost to f/u he does get occasional RLQ discomfort that comes and goes PMH: Active problems - Computerized Problem List is the source for the followin. Seasonal allergy 2. Steatosis of liver follows with Hep, normal Fibro scan no Cirrhosis 3. Cornea transplant recipient 4. Glaucoma 5. Disorder of parathyroid glands 6. 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 Serum triglycerides raised 188 (03/2018) / TRIG 222 ( 08/2017) 9. Keratoconus 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 Last done 08/14/2010 [facility]. 10. Open-angle glaucoma of right eye (SNOMED CT [id number]) 11. H/O: surgery s/p right corneal transplant Jul 2010; 12. H/O: surgery s/p tonsillectomy in childhood; 13. Dyslipidemia Allergies: ROSUVASTATIN, LIPITOR, BRIMONIDINE The following VA and Non-VA meds were reconciled with patient: Active and Recently Outpatient Medications (excluding Supplies): Active Outpatient Medications Status 1) ASPIRIN 81MG EC TAB TAKE ONE TABLET BY MOUTH ONCE DAILY TO ACTIVE PREVENT STROKE/HEART ATTACK Indication: FOR RISK REDUCTION 2) CARBOXYMETHYLCELLULOSE 1% OPH GEL 0.4ML APPLY 1 DROP INTO ACTIVE EACH EYE SIX TIMES A DAY NEEDED Indication: FOR DRY EYE 3) EZETIMIBE 10MG TAB TAKE ONE TABLET BY MOUTH ONCE DAILY TO ACTIVE LOWER CHOLESTEROL Indication: FOR HIGH CHOLESTEROL 4) FENOFIBRATE 48MG TAB TAKE ONE TABLET BY MOUTH ONCE DAILY ACTIVE Indication: FOR HIGH CHOLESTEROL 5) FLUOROMETHOLONE 0.25% OPH SUSP INSTILL 1 DROP INTO THE RIGHT ACTIVE EYE EVERY DAY 6) TAFLUPROST 0.0015% OPH SOLN INSTILL 1 DROP INTO THE RIGHT ACTIVE EYE AT BEDTIME Indication: GLAUCOMA 7) TIMOLOL MALEATE 0.5% OPH SOLN 0.3ML INSTILL 1 DROP INTO THE ACTIVE RIGHT EYE TWICE DAILY Indication: GLAUCOMA Active Non-VA Medications Status 1) Non-VA ASPIRIN 81MG EC TAB 81MG BY MOUTH ONCE DAILY ACTIVE 2) Non-VA CYCLOSPORINE 0.05% (PF) OPH EMUL 0.4ML 1 DROP ONCE ACTIVE DAILY 9 Total Medications Allergies: ROSUVASTATIN, LIPITOR, BRIMONIDINE VITAL SIGNS: 97.8 F [36.6 C] (11/22/2024 09:12) 57 (11/22/2024 09:12) 18 (11/22/2024 09:12) 123/80 (11/22/2024 09:12) 1 (11/22/2024 09:12) 65 in [165.1 cm] (10/28/2022 09:02) 177.7 lb [80.60 kg] (05/17/2024 08:54) BMI: 29.6 RO S * General: no fever, no unexplained weight loss or gain CV: denies CP, palpitations Lung: denies Dyspnea or wheezing Abd: denies n/v/d : denies dysuria, penile d/c, hematuria Ext: denies edema Psych: denies SI Neuro: denies dizziness, falls, CASTELLON PHYSICAL EXAM GENERAL: well appearing in NAD, speaking in clear sentences. RESP: CTAB, no wheezing or Rales. Cards: S1 S2 RRR, No m/r/g no JVD, No Pedal Edema, Distal Pulses palpable NEURO CN II-XII grossly intact, gait steady without shuffle, Normal sensation to feet bilaterally MENTAL A&Ox3 Appropriate, Pleasant, Cooperative HGB A1C (WR): 5.8 H WBC: 7.25 RBC: 4.94 HGB: 16.2 HCT: 46.6 MCV: 94.3 MCHC: 34.8 RDW: 12.4 PLT: 264 MCH: 32.8 H Neut %: 56.3 Lymph %: 32.6 Newton %: 6.9 Eos %: 3.3 Baso %: 0.6 Neut, Abs: 4.09 Lymph, Abs: 2.36 Newton, Abs: 0.50 Eos, Abs: 0.24 Baso, Abs: 0.04 Immature Granulocytes %: 0.3 Immature Granulocytes, Abs: 0.02 NRBC%: 0.0 NRBC#: 0.00 TSH (Access): 1.71 GLUCOSE: 111 H UREA NITROGEN: 15 SODIUM: 139 POTASSIUM: 4.3 CHLORIDE: 105 CO2: 24 CALCIUM: 9.1 CHOLESTEROL: 232 H PROTEIN,TOTAL: 7.8 ALBUMIN: 4.2 ALKALINE PHOSPHATASE: 46 SGOT: 31 SGPT: 32 TRIGLYCERIDE: 202 H LDL CHOL: 141 H CHOL/HDL RATIO: 4.5 HDL: 51 BILIRUBIN,TOT.: 0.6 CREATININE-EGFR: 1.07 eGFR CKD-EPI 2020: 69 Future Clinic Visits 12/29/2024 09:00 [facility] OPTOMETRY VSL IMG 12/29/2024 09:30 [facility] OPTOMETRY 1 PM 05/17/2025 10:00 [facility] 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 to follow with [facility] and [facility] -Cont. eye drops as prescribed HLD -Mixed Hyperlipidemia -Cont. fenofibrate 48mg -Ezetimibe 10mg tabs PO daily -Lipids improved LDL 140s Fatty liver -Saw Hepatology in Summer 2022 LSM normal no cirrhosis or fibrosis -repeat CT scan of Abd through hepatology and if stable can repeat in 24 mo. -LFTs normal Return to clinic to see me in 6 months, RTC sooner if needed. Clinical Reminders Medication Reconciliation: Outpatient: Has the patient been taking medications as documented in the EMLR? YES: The patient has been taking medications as documented in the EMLR. Essential Medication List for Review used to complete this medication reconciliation. INCLUDED IN THIS LIST: Alphabetical list of active outpatient prescriptions dispensed from this [facility] (local) and dispensed from another [place] or DoD facility (remote) as well as [...] whether with a VA or non-VA provider. /enrrique/ YANE ACEVEDO Nurse Practitioner Signed: 11/22/2024 12:34 SHREYA SIMPSON [facility] [place] [facility] Nov 22, 2024 09:12 AM PREVENTIVE MEDICINE NURSING NOTE: LOCAL TITLE: CLINICAL REMINDERS/NURSING STANDARD TITLE: PREVENTIVE MEDICINE NURSING NOTE DATE OF NOTE: NOV 22, 2024@09:12 ENTRY DATE: NOV 22, 2024@09:12:58 AUTHOR: HYACINTH MAK COSIGNER: URGENCY: STATUS: COMPLETED CLINICAL REMINDERS/NURSING Has ADDENDA Homelessness/Food Insecurity Screen: In the past 2 months, have you been living in stable housing that you own, rent, or stay in as part of a household? Yes - Living in stable housing. Are you worried or concerned that in the next 2 months you may NOT have stable housing that you own, rent, or stay in as part of a household? No - Not worried about housing near future The reports the following: Within the past 12 months, you worried whether your food would run out before you got money to buy more. Never true Within the past 12 months, the food you bought just didn't last and you didn't have money to get more. Never true Falls & Incontinence Screen: Falls Screen: During the past 12 months, did the patient report any falls? 4. No falls within the past year. Incontinence Screen: During the past 12 months, has the patient has any characteristics of incontinence (ability, voiding, leakage, etc.)? No incontinence. PTSD Screening: PC-PTSD-5 A PTSD screening test (PC-PTSD-5) was negative (score=0). IN THE PAST MONTH, have you ever had any experience that was so frightening, horrible or traumatic. For example: A serious accident or fire a physical or sexual assault or abuse An earthquake or flood A war Seeing someone be killed or seriously injured Having a loved one through homicide or suicide 1. Have you ever experienced this kind of event? NO 2. Had nightmares about the event(s) or thought about the event(s) when you did not want to? Response not required due to responses to other questions. 3. Tried hard not to think about the event(s) or went out of your way to avoid situations that reminded you of the event(s)? Response not required due to responses to other questions. 4. Been constantly on guard, watchful, or easily startled? Response not required due to responses to other questions. 5. [place] numb or detached from people, activities, or your surroundings? Response not required due to responses to other questions. 6. [place] guilty or unable to stop blaming yourself or others for the event(s) or any problems the event(s) may have caused? Response not required due to responses to other questions. RHS Screen: RHS Screen Session Format: Face to Face Environmental Check Upon inquiry, the individual reports that the environment is safe to proceed. Informed Consent to Screen and Document The individual consents to proceed with screening. The individual consents to documentation of responses. PRIMARY SCREEN: In the past 12 months, how often did a current or former intimate partner (e.g., boyfriend, girlfriend, , , sexual partner): 1. Scream or curse at you Never 2. Insult or talk down to you Never 3. Threaten you with harm Never 4. Physically hurt you Never 5. Force or pressure you to have sexual contact against your will, or when you were unable to say no Never ?? The HITS tool (items 1-4 above) is US copyright protected by Jamie Hinson MD, and the user has full rights to use it throughout the [place] system. PRIMARY SCREEN RESULT: The Primary Screen is NEGATIVE. The individual answered never to all forms of IPV above (i.e., answered never to all 5 items) The individual accepts education and/or resources: No EDUCATION: Other: declines /enrrique/ HYACINTH MAK REGISTERED NURSE Signed: 11/22/2024 09:18 11/22/2024 ADDENDUM STATUS: COMPLETED Tdap Immunization: Td/Tdap given previously - written records available The patient has previously received the Tetanus, Diphtheria vaccine (Td). Documented: TD(ADULT) UNSPECIFIED FORMULATION Historical Date Administered: Apr 2015 Exact date unknown Outside Location: Outside Healthcare Provider Information Source: FROM PATIENT'S WRITTEN RECORD Hepatitis B Immunization: Hepatitis B vaccine given previously - written records available Hepatitis B vaccine - standard 3 dose series (Energix, Recombivax, etc) Documented: HEP B, ADULT Historical Date Administered: Sep 2022 Exact date unknownSeries: Series 1 Information Source: FROM PATIENT'S WRITTEN RECORD Documented: HEP B, ADULT Historical Date Administered: Nov 2024 Exact date unknownSeries: Series 2 Information Source: FROM PATIENT'S WRITTEN RECORD /enrrique/ HYACINTH MAK REGISTERED NURSE Signed: 11/22/2024 10:08 HYACINTH MAK [facility]TRL [facility]
--- OUTSIDE RECORDS SUMMARY | 2024-11-23 08:11 | XMS_ITS | Encounter Summary ---
Author Name [facility] Organization [facility] Address [address] [place] [address] Care Team Providers Care Strategic Partner Development Manager Name Role Phone SHREYA SIMPSON Primary Care [...] MANOHAR MEDEX BRONZ E Aug 22, 2007 [id number] [phone] AAYUSH AYON PATIENT [place] SUPPLEMEN MANOHAR MEDEX BRONZ E Aug 22, 2007 [id number] [phone] AAYUSH AYON PATIENT [place] SUPPLEMEN MANOHAR MEDEX BRONZ E Aug 22, 2007 [id number] AAYUSH AYON PATIENT BCBS [facility] MEDICARE SUPPLEMEN MANOHAR PSUED O MEDEX BRONZ E Aug 22, 2007 [id number] AAYUSH AYON PATIENT MEDICARE (WNR) MEDICARE (M) PART B Aug 22, 2007 PART B [id number] [phone] MASCIADRE LLI,AAYUSH T PATIENT MEDICARE (WNR) MEDICARE (M) PART B Aug 22, 2007 PART B [id number] MASCIADRE LLI,AAYUSH T PATIENT MEDICARE (WNR) MEDICARE (M) PART A Aug 22, 2007 PART A [id number] MASCIADRE LLI,AAYUSH T PATIENT MEDICARE (WNR) MEDICARE (M) PART A Aug 22, 2007 PART A [id number] MASCIADRE LLI,AAYUSH T PATIENT MEDICARE (WNR) MEDICARE (M) PART B Aug 22, 2007 PART B [id number] MASCIADRE LLI,AAYUSH T PATIENT MEDICARE (WNR) MEDICARE (M) PART A Aug 22, 2007 PART A [id number] [phone] MASCIADRE LLI,AAYUSH T PATIENT Selected Encounter This section includes the information on record at [place] for the Encounter. 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 Date/Time Primary/Secondary Diagnosis Diagnosis Name Provider Source Oct 01, 2024 11:54 AM PRIMARY Keratoconus, stable, bilateral LITA FRIEDMAN [facility] Oct 01, 2024 11:54 AM SECONDARY Corneal transplant status LITA FRIEDMAN [facility] Oct 01, 2024 11:54 AM SECONDARY Dry eye syndrome of bilateral lacrimal glands LITA FRIEDMAN [facility] Oct 01, 2024 11:54 AM SECONDARY Other disorders of refraction LITA FRIEDMAN [facility] Plan of Treatment: Future Appointments (+ 6 months) and Future Tests (+/- 45 days) The Plan of Treatment section includes future care activities for the patient from all [place] treatmentfacilities. This section includes future appointments and future orders which are active, pending or scheduled. Future Appointments This section includes appointments that were scheduled to occur 6 months from the date of the Encounter, up to a maximum of 20 appointments. The data comes from all [place] treatment facilities. Appointment Date/Time Appointment Type Appointme nt Facility Name May 17, 2024 09:00 AM [facility] May 18, 2024 09:00 AM [facility] Jun 15, 2024 01:00 PM [facility] Jun 17, 2024 09:30 AM [facility] Jun 22, 2024 02:15 PM AMBULATORY - REHAB MEDICIN [facility] Jul 09, 2024 09:30 AM [facility] Jul 09, 2024 09:31 AM [facility] Aug 13, 2024 01:00 PM [facility] Encounter Notes: All associated encounter notes This section contains the clinical notes associated to the Encounter. Date/Time Encounter Note(s) Provider Source Mar 17, 2024 08:27 AM OPTOMETRY NOTE: LOCAL TITLE: OPTOMETRY STANDARD TITLE: OPTOMETRY NOTE DATE OF NOTE: MAR 17, 2024@08:27 ENTRY DATE: MAR 17, 2024@08:27:15 AUTHOR: LITA FRIEDMAN EXP COSIGNER: URGENCY: STATUS: COMPLETED OPTOMETRY Has ADDENDA 83 WHITE MALE presents for a contact lens exam. Last CL exam 11/19/2023. Here for CL check w/ new sclerals, set #3 OD/OS. - HPI: originally referred by Dr. Mckeon [facility]. 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 Modified monovision OD distance, OS intermediate (for dashboard). Chief Complaint: received set #3, very happy with the vision and comfort OD/OS. Lenses are very comfortable, more comfortable than set 2. Filling half with AddiPak and half with Refresh Celluvisc. Cleans/disinfects with ClearCare nightly. Also uses BostonSimplus. Overall, doing very well. Happy with sclerals and able to wear the full day. (+) Eye Surgery: h/o corneal transplant 1986 then 2009 OD, CE/PCIOL OD. Saw Dr. Pradeep Hudson at [facility] last month, all stable. Followed every 6mo -> seeing her again in 05/2024. HVFs are being done at [facility] optometry with Dr. Mckeon. EYE MEDS: - Zioptan QHS OD - PF timolol 0.5% BID OD - specialty compounded cyclosporine 0.5% Qdaily OD ([facility]) - FML 0.25% Qdaily OD Patient denies flashes, floaters, eye pain/ache/strain, sudden vision loss, or diplopia. OcHx: 1. 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 Open angle glaucoma OD -> followed in the community by Dr. Pradeep Hudson @[facility] 3. Pseudophakia OD 4. Nuclear sclerosis Cataracts OS 5. refractive error OU/presbyopia NON-VA MEDS: - CLOBETASOL PROPRIONATE 0.1% OINTMENT - FENOFIBRATE 54MG TABLETS - EZETIMIBE 10MG TABLETS - ASA 81MG DAILY - CETIRIZINE HCL 10MG IMMUNIZATIONS FOLLOWS: - 5 COVID SHOTS AT [facility] IN [place] - [place] JUL 2020 & SEP 2020 @[facility] - FLU SHOT 06/2022 AND 06/2023 AT [facility] - PNEUMONIA 06/2022 - TETANUS 2015 - HEP B VACCINE 09/2022 AND 11/2022 PMH as below - no relevant changes. A&Ox3. -------- MEDICAL HISTORY: Code Description H18.613 Keratoconus ([facility] [id number]) Z94.7 Cornea transplant recipient ([facility] [id number]) Active Outpatient Medications (including Supplies): Active Outpatient Medications Status ========= 1) CARBOXYMETHYLCELLULOSE 1% OPH GEL 0.4ML INSTILL 1 ACTIVE DROP (PF 1%) INTO EACH EYE FOUR TIMES A DAY 2) CONTACT LENS CLEANING (CLEAR CARE) SOLN SMALL AMOUNT ACTIVE DIRECTED BY PROVIDER NIGHTLY FOR CONTACT LENS USE NIGHTLY FOR DISINFECTING SCLERAL LENSES 3) CONTACT LENS SOLN (BOSTON SIMPLUS) (SIMPLUS) ACTIVE DIRECTED BY PROVIDER EVERY DAY FOR CONTACT LENS 4) SODIUM CHLORIDE 0.9% INHL 3ML INHALE 1 AMPULE (0.9%) ACTIVE 3ML DIRECTED BY PROVIDER EVERY DAY SCLERAL LENSES Allergies:ROSUVASTATIN, LIPITOR, BRIMONIDINE -------- OCULAR HISTORY: STACY: 11/19/2023 [facility] clinic forwarded: A/P: 1. 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 Lopez @[facility], last seen ~04/2023 - Scleral lens fitting completed 09/04/2023 OD/OS - Note: very toric sclera OD/OS --> 500um scleral toricity incorporated - Lens set #1 eval 10/16/2023: DVA OU 20/25, NVA OU 20/40 - 11/19/2023: set #2 DVA OU 20/20, NVA OU 20/25; TO ORDER OD: steepen PC1 by 1 step to incorp more rev geometry to clear SN OS: flatten PC2 1/2 step for easier removal SET #3 --> FINAL SET REF#[id number] SCLERAL LENS RX: Right Left Shila: 17.5 18.0 Base: 45.50 45.50 SA 5749 Power: +2.50 -0.75 PC1: 7.13/2.60 7.29/2.85 PC2: 13.83/1.65 14.5/1.65 TPC: 500um 500um dot: 1 blackened 2 blackened --------- MFG: [employer] LENS TYPE: EUROPA TANGENT Material: [id number] + hydrapeg, clear // Pt edu on ocular findings, continue with lens set #2, use AddiPak + PF-CMC 1% to cushion bowl of the lens OD (mild SN touch). Pt labeled lenses as I have above (first set #1, second set #2). Ordered scleral lens set #3 from [employer] today, to be mailed to patient. Continue cleaning/disinfecting with ClearCare and/or BostonSimplus. Fill bowl with AddiPak. RTC 4mo for scleral lens check, sooner PRN if problems with set #3. Below items not fully assessed today: 2. Mild Secondary Open angle glaucoma OD --> followed in the community by Dr. Pradeep Hudson @[facility] (next appt: 01/2024) - Zioptan QHS OD - PF timolol 0.5% BID OD 3. Dry eye syndrome OU - specialty compounded cyclosporine 0.5% Qdaily OD [facility]) 4. S/p corneal transplant x2 OD (1986 + 2009) - FML Qdaily OD 5. Pseudophakia OD 6. Cataracts OS // RTC 4mo for scleral lens check + pentacam, sooner PRN. Maintain all f/u with [facility] optometry & Dr. Hudson @[facility] (next 01/2024). FEH: glaucoma (-) amd (-) -------- SOCIAL HISTORY: smoking (-) alcohol (+) occasionally with dinner EXAMINATION: DVA cc (sclerals, set #3) last w/ set #2 OU: 20/25+1 20/20-2 OD: 20/25+1 20/25+2 OS: 20/50-2, PH 20/30+2 20/30+2 NVA OU: 20/30 20/25 CONFRONTATION BROOKS: FTFC OD and OS PUPILS: ERRL -APD VERSIONS: SAFE OU SLIT LAMP EXAM: L/L: MGD OD/OS, dermatochalasis OU CONJ: white and quiet OD/OS CORNEA: OD: s/p PKP w/ 3 sutures remaining (none loose) @6:00, 7:00, 2:00; peripheral neovascularization inferiorly & superiorly to graft; no Kedema, no signs of rejection, +scarring 360 from old sutures, subepi scarring SN at graft-host jct OS: clear (no clinical signs of KCN; no Natasha ring, no vogt striae, no hydrops) IRIS: flat/clear OD/OS AC: deep/quiet OD/OS LENS: OD: PCIOL (undilated) OS: 2+ NS w central dense PSC (undilated) IOP deferred secondary to SL check. CORNEAL TOPOGRAPHY (PENTACAM) 09/04/2023) OD: 42.8/45.1@28.6, CCT 573um, KMax 61.9D sup, no ectasia s/p PKP OS: 52.4/56.2@76.4, CCT 398um, KMax 63.7D, ant/post elevation w/ ectasia inferiorly c/w KCN CONTACT LENS INFO: -> see previous notes for prior info on PROSE & VA SL fitting. NOTES: 03/17/2024 WEARING LENS SET #3 OD/OS, INSERTED AT 8AM FINAL RX/PARAMETERS => ordered 11/19/2023 SCLERAL LENS RX: Right Left Shila: 17.5 18.0 Base: 45.50 45.50 SA 5749 Power: +2.50 -0.75 PC1: 7.13/2.60 7.29/2.85 PC2: 13.83/1.65 14.5/1.65 TPC: 500um 500um dot: 1 blackened 2 blackened --------- MFG: [employer] LENS TYPE: EUROPA TANGENT Material: [id number] + hydrapeg, clear ORx: @distance OD: plano 20/25 OS: -1.50sph 20/40-2 FIT ASSESSMENT: OD: 803273-3Z, central FR ~100um, close apposition sup/sup-nasal with focal SN touch at graft-host jct; hashmarks 11:00--5:00; good edges 360 OS: 316304-6T, central FR ~250um, 150um FR midperiph 360, hashmarks 9:00--3:00; conj hooding IN vs baseline pannus (still present on lens removal), good edges 360 OPTOMETRY CONTACT LENS CLINIC ASSESSMENT & PLAN: A/P: 1. 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 Lopez @[facility], last seen ~04/2023 - [facility] Scleral lens [...] [employer] LENS TYPE: EUROPA TANGENT Material: [id number] + hydrapeg, clear // Pt edu on [...] in the community by Dr. Pradeep Hudson @[facility] (next appt: 05/2024) - Zioptan QHS OD - PF timolol 0.5% BID OD 3. Dry eye syndrome OU - specialty compounded cyclosporine 0.5% Qdaily OD ([facility]) 4. S/p corneal transplant x2 OD (1986 + 2009) - FML 0.25% Qdaily OD 5. Pseudophakia OD 6. Cataracts OS -> becoming more visually significant to undilated view // RTC 6mo for scleral lens check + pentacam, sooner PRN. Maintain all f/u with Dr. Mckeon @[facility] (next: 06/17/2024) & Dr. Hudson @[facility] (next 05/2024). -> pt visits [place] yearly, upcoming trip planned for 06/2024 There are no barriers to communication with the patient. Total Time spent on preparation/review of existing data, exam, procedures, and documentation: 50min /enrrique/ LITA FRIEDMAN OD, MS, FAAO ATTENDING STUDENT SUCCESS COACH Signed: 03/17/2024 13:54 10/12/2024 ADDENDUM STATUS: COMPLETED 10/12/2024: Patient sent secure message that RIGHT scleral lens chipped/cracked. Placed prosthetics consult requesting replacement RIGHT lens. SCLERAL LENS RX: Right Shila: 17.5 Base: 45.50 SA Power: +2.50 PC1: 7.13/2.60 PC2: 13.83/1.65 TPC: 500um dot: 1 blackened --------- MFG: [employer] LENS TYPE: EUROPA TANGENT Material: [id number] + hydrapeg, clear /jeanie FRIEDMAN OD, MS, FAAO ATTENDING STUDENT SUCCESS COACH Signed: 10/12/2024 11:17 LITA FRIEDMAN [facility]
--- OUTSIDE RECORDS SUMMARY | 2024-11-23 08:11 | XMS_ITS | Encounter Summary ---
Author Name [facility] [place] [facility] [place] [facility] [place] Address [address] [place] [address] Care Team Providers Care Small Machine Bindery Operator Name Role Phone SHREYA SIMPSON Primary [...] MANOHAR MEDEX BRONZ E Aug 22, 2007 [id number] [phone] AAYUSH AYON [place] SUPPLEMEN MANOHAR MEDEX BRONZ E Aug 22, 2007 [id number] [phone] BURKEIADRAAYUSH DAS T [place] SUPP[place]MEN MANOHAR MEDEX BRONZ E Aug 22, 2007 [id number] BURKEIADRAAYUSH DAS PATIENT BCBS OF [facility] MEDICARE SUPPLEMEN MANOHAR PSUED O MEDEX BRONZ E Aug 22, 2007 [id number] BURKEIADRE LLI,AAYUSH T PATIENT MEDICARE (WNR) MEDICARE (M) PART B Aug 22, 2007 PART B [id number] MASCIADRE LLI,AAYUSH T PATIENT MEDICARE (WNR) MEDICARE (M) PART A Aug 22, 2007 PART A [id number] [phone] MASCIADRE LLI,AAYUSH T PATIENT MEDICARE (WNR) MEDICARE (M) PART B Aug 22, 2007 PART B [id number] MASCIADRE LLI,AAYUSH T PATIENT MEDICARE (WNR) MEDICARE (M) PART A Aug 22, 2007 PART A [id number] [phone] MASCIADRE LLI,AAYUSH T PATIENT MEDICARE (WNR) MEDICARE (M) PART B Aug 22, 2007 PART B [id number] MASCIADRE LLI,AAYUSH T PATIENT MEDICARE (WNR) MEDICARE (M) PART A Aug 22, 2007 PART A [id number] BURKEIADRE LLMitesh,AAYUSH Gore PATIENT Selected Encounter This section includes the information on [place] at [place] for the Encounter. Date/Time Encounter Type Encounter Description Reason Provider Source January 23, 2024 10:00 AM OFFICE O/P EST MOD 30 MIN PRIMARY CARE/MEDICINE ICD-10-CM J30.2 Other seasonal allergic rhinitis SHREYA SIMPSON [facility] Encounter Template Text not used by [place] Assessments - Encounter Diagnoses This section includes the primary and secondary diagnoses documented for the Encounter. Date/Time Primary/Secondary Diagnosis Diagnosis Name Provider Source February 18, 2024 12:12 PM PRIMARY Other seasonal allergic rhinitis SHREYA SIMPSON [place] [facility] [place] [facility] Plan of Treatment: Future Appointments (+ 6 months) and Future Tests (+/- 45 days) The Plan of Treatment section includes future care activities for the patient from all [place] treatmentfacilities. This section includes future appointments and future orders which are active, pending or scheduled. Future Appointments This section includes appointments that were scheduled to occur 6 months from the date of the Encounter, up to a maximum of 20 appointments. The data comes from all [place] treatment facilities. Appointment Date/Time Appointment Type Appointme nt Facility Name Mar 17, 2024 01:00 PM AMBULATORY - SURGERY [facility] May 17, 2024 09:00 AM [facility] [place] [facility] May 18, 2024 09:00 AM [facility]UL[facility] [place] [facility] Jun 15, 2024 01:00 PM AMBULATORY - MEDICINE [facility] [place] [facility] Jun 17, 2024 09:30 AM [facility]UL[facility]ORY [facility]IC[facility] [place] [facility] Jun 22, 2024 02:15 PM AMBULATORY - REHAB MEDICIN [facility] [place] [facility] Jul 09, 2024 09:30 AM [facility] [place] [facility] Jul 09, 2024 09:31 AM [place] [facility] [place] [facility] Vital Signs: All taken on the encounter date This section contains inpatient and outpatient Vital Signs collected on the date of the Encounter. Date/Time Temperature Pulse Blood Pressure Respiratory Rate SP02 Pain Height Weight Body Mass Index Source January 23, 2024 09:58 AM 97.3 56 134/84 14 96 0 180.8 30 [place] [facility] [place] [facility] [facility] Social History: Smoking Status (Most current) and Tobacco Use (All prior to encounter date) This section includes the most current, and the historical, smoking and tobacco- related health factors from the [place] facility where the Encounter took place. Current Smoking Status This section includes the most current smoking, or tobacco-related health factor, from the [place] facility where the Encounter took place. Date/Time Current Smoking Status Comment Nguyen walker January 23, 2024 10:00 AM VA-TOBACCO NEVER USED [place] [facility] [place] [facility] Tobacco Use History This section includes a history of the smoking, or tobacco-related health factors, that were collected on or before the date of the Encounter. The data comes from the [place] facility where the Encounter took place. Date/Time Smoking Status/Tobacco Use Comment F acility Dec 11, 2022 09:30 AM VA-TOBACCO NEVER USED [facility] [place] [facility] Dec 28, 2021 09:00 AM VA-TOBACCO NEVER USED [facility] [place] [facility] Oct 02, 2020 11:00 AM VA-TOBACCO NEVER USED [facility] [place] [facility] Aug 18, 2018 10:48 AM VA-TOBACCO NEVER USED [facility] [place] [facility] Dec 08, 2017 08:55 AM LIFETIME NON-TOBACCO USER [facility] Nov 28, 2016 10:51 AM LIFETIME NON-TOBACCO USER [facility] [place] [facility] Encounter Notes: All associated encounter notes This section contains the clinical notes associated to the Encounter. Date/Time Encounter Note(s) Provider Source January 23, 2024 10:27 AM NURSE PRACTITIONER NOTE: LOCAL TITLE: NURSE PRACTIONER/SICK VISIT STANDARD TITLE: NURSE PRACTITIONER NOTE DATE OF NOTE: JANUARY 23, 2024@10:27 ENTRY DATE: JANUARY 23, 2024@10:27:50 AUTHOR: SHREYA SIMPSON EXP COSIGNER: URGENCY: STATUS: COMPLETED [place] is here for Urgent/Sick visit HPI: 6 days of runny nose, headaches and clearing of throat, feels like allergies are worse despite getting back on daily Zyrtec he takes that during allergy season and started back up on it last week he thinks it has helps his sx he [place] this [place] to [place] tour with a student and wants to keep his sx more in control he denies fevers head or n/v/d no rash no intense nasal or head congestion Past Medical History: Active problems - Computerized Problem List is the source for the followin. Steatosis of liver follows with Hep, normal Fibroscan no Cirrhosis 2. Cornea transplant recipient 3. Glaucoma 4. Disorder of parathyroid glands 5. Decreased vitamin D 17 - START VIT D SUPPL 04/17/18 6. Keratoconus of bilateral corneas IMMUNSUPRESSIVE EYE GTTS ( CORNEAL TRANPLANT) right eye corneal transplant 7. Serum triglycerides raised 188 (03/2018) / TRIG 222 ( 08/2017) 8. Keratoconus 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 Last done 08/14/2010 [facility]. 9. Open-angle glaucoma of right eye (SNOMED CT [id number]) 10. 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 H/O: surgery s/p right corneal transplant Jul 2010; 12. H/O: surgery s/p tonsillectomy in childhood; 13. Dyslipidemia Allergies: ROSUVASTATIN, LIPITOR, BRIMONIDINE Current Medications: Active Outpatient Medications (including Supplies): ASPIRIN 81MG EC TAB TAKE ONE TABLET BY MOUTH ONCE DAILY TO ACTIVE PREVENT STROKE/HEART ATTACK ASPIRIN 81MG EC TAB TAKE ONE TABLET BY MOUTH ONCE DAILY TO PENDING PREVENT STROKE/HEART ATTACK CETIRIZINE HCL 10MG TAB TAKE ONE TABLET BY MOUTH ONCE ACTIVE DAILY FOR ALLERGIES EZETIMIBE 10MG TAB TAKE ONE TABLET BY MOUTH ONCE DAILY TO ACTIVE LOWER CHOLESTEROL FENOFIBRATE 48MG TAB TAKE ONE TABLET BY MOUTH ONCE DAILY ACTIVE FOR HIGH CHOLESTEROL FENOFIBRATE 48MG TAB TAKE ONE TABLET BY MOUTH ONCE DAILY PENDING FLUOROMETHOLONE 0.25% OPH SUSP INSTILL 1 DROP INTO THE ACTIVE RIGHT EYE EVERY DAY FLUTICASONE PROP 50MCG 120D NASAL INHL INSTILL 2 SPRAYS PENDING INTO EACH NOSTRIL ONCE DAILY SODIUM CHLORIDE 0.9% INHL 5ML USE 3 TO 4 VIALS ONCE DAILY ACTIVE DIRECTED BY PROVIDER IN OPHTHALMIC PROSTHETIC DEVICE TAFLUPROST 0.0015% OPH SOLN INSTILL 1 DROP INTO THE RIGHT ACTIVE EYE AT BEDTIME TIMOLOL MALEATE 0.5% OPH SOLN 0.3ML INSTILL 1 DROP INTO ACTIVE THE RIGHT EYE TWICE DAILY Non-VA ASPIRIN 81MG EC TAB 81MG BY MOUTH ONCE DAILY ACTIVE Non-VA CYCLOSPORINE 0.05% (PF) OPH EMUL 0.4ML 1 DROP ONCE ACTIVE DAILY -ROS- General: no fever, no unexplained weight loss or gain CV: denies CP, SOB, palpitations Lung: denies MELGOZA, (+) Dry cough, denies wheezing (+) rhinitis Abd: denies n/v/d : denies dysuria, penile d/c, hematuria, change in urinary flow Ext: denies edema, weakness, falls Skin: denies rash or other lesions Psych: denies SI -Vitals- 97.3 F [36.3 C] (01/23/2024 09:58) 56 (01/23/2024 09:58) 14 (01/23/2024 09:58) 134/84 (01/23/2024 09:58) 0 (01/23/2024 09:58) 65 in [165.1 cm] (10/28/2022 09:02) 180.8 lb [82.01 kg] (01/23/2024 09:58) BMI: 30.1 -Physical Exam- General: NAD Head: Normocephalic, atraumatic Eyes: EOMI no nystagmus, PERRLA, Palpebral folds appropriate width, no drooping, sclera white, conjunctiva pink without exudate or edema. Ears: Symmetrical no deformities, Auricles palpable without tenderness, TM well visualized pearly tejeda no cerumen foreign body or drainage no errythema Nose: Patent nares, Runny clear nasal discharge no congestion, no tenderness on frontal and maxillary sinuses, nasal mucosa boggy Mouth/Pharynx/Neck: No Tonsilar exudate or ulcerations, uvula midline, posterior pharynx moist and pink, trachea midline without deviation, No cervical Lymphadenopathy CV: S1S2, rrr, no m/r/g Lung: CTA Bilaterally, no wheeze, rhonchi, or crackles, no audible cough Skin: no lesions or rashes Psych: A&O x3, appropriate mood and affect ASSESSMENT/PLAN: 1)Seasonal allergies -No evidence of bacterial infection -Contonie Zyrtec 10mg dailt -Added in Flonase to take 2 sprays each nostril -Encouraged use of cool mist humidifer in room -Supportive home care, fluids, rest -Encouraged frequent hand washing and covering mouth with coughing -Course, prognosis, return precautions discussed -Questions answered Return to ER if: A fever of more than 101?? F over next 24H despite antipyretics Loss of appetite Signs of Dehydration If cough persists If Chest pain when you cough, trouble breathing, or coughing up blood The above plan and education was reviewed with the [place] and they verbalized understanding. Return to clinic to see me in Apr, RTC sooner if needed. -Clinical Reminders- Medication Reconciliation: Outpatient: Has the patient been taking medications as documented in the EMLR? YES: The patient has been taking medications as documented in the EMLR. Essential Medication List for Review used to complete this medication reconciliation. INCLUDED IN THIS LIST: Alphabetical list of active outpatient prescriptions [facility] from this [facility] (local) and dispensed from another [facility] or [facility] facility (remote) as well as [...] provider. /enrrique/ YANE ACEVEDO Nurse Practitioner Signed: 01/23/2024 10:32 SHREYA SIMPSON [place] [facility] [place] [facility] January 23, 2024 09:56 AM PREVENTIVE MEDICINE NURSING NOTE: LOCAL TITLE: CLINICAL REMINDERS/NURSING STANDARD TITLE: PREVENTIVE MEDICINE NURSING NOTE DATE OF NOTE: JANUARY 23, 2024@09:56 ENTRY DATE: JANUARY 23, 2024@09:56:26 AUTHOR: JOVITA VELASQUEZ EXP COSIGNER: URGENCY: STATUS: COMPLETED Advance Directive Screen MH AD: Patient has an up-to-date Advance Directive at an outside, non-va facility and was asked to forward a copy to his/her clinician. Depression Screening: Perform PHQ-2 A PHQ-2 screen was performed. The score was 0 which is a negative screen for depression. Over the past two weeks, how often have you been bothered by the following problems? 1. Little interest or pleasure in doing things Not at all 2. Feeling down, depressed, or hopeless Not at all Tobacco Use Screening: The patient has never used tobacco. Alcohol Use Screen (AUDIT-C): Alcohol Screen: SCREEN FOR ALCOHOL (AUDIT-C) An alcohol screening test (AUDIT-C) was negative (score=3). 1. How often did you have a drink containing alcohol in the past year? Consider a drink to be a 12 ounce can or bottle of regular beer, 8 ounces of malt liquor, a 5 ounce glass of table wine, or a 1.5 ounce shot of liquor (like scotch, gin, or vodka). Two to three times per week 2. How many drinks containing alcohol did you have on a typical day when you were drinking in the past year? One or two drinks 3. How often did you have six or more drinks on one occasion in the past year? Never /enrrique/ JOVITA L EVA, MSN, RN, CNL PRIMARY CARE TEAM NURSE Signed: 01/23/2024 09:58 JOVITA VELASQUEZ [facility]
--- OUTSIDE RECORDS SUMMARY | 2024-11-23 08:11 | XMS_ITS | Patient Health Record ---
Author Organization [facility] Address [address] [place] [id number] Care Team Providers Care Client Relation Specialist Name Role Phone Mary Valle Primary Care Provider Li Ez Culver Unavailable [phone] ALLERGIES Allergen (clinical drug ingredient) Drug/Non Drug Allergy documented on EMR Reaction Allergy Type Onset Date Status brimonidine Brimonidine Unknown Drug Allergy Act ching rosuvastatin Rosuvastatin Calcium Unknown Drug Allergy Active atorvastatin Lipitor Unknown Drug Allergy Acti ve Substance with 5-qmyxthl-0-methylglut aryl-coenzyme A reductase inhibitor mechanism of action (substance) statins (uncoded) leg cramps Allergy Active REASON FOR REFERRAL No Information MEDICATIONS Medication SIG (Take, Route, Frequency, Duration) Notes Start Date End Date Status Fluorometholone 0.25 % 1 drop into affec carlin eye Ophthalmic Twice a day Active MiraLax (colon prep) 17 GM/SCOOP 1 238 Gm bottle mixed with Gatorade or Crystal Light Orally begin at 5:00 p.m. the day before the procedure for 1 day 11/12/2022 Active Fenofibrate 160 MG 1 tablet Orally Once a day for 30 day(s) Active Tafluprost (PF) 0.0015 % 1 drop into aff ected eye in the evening Ophthalmic Once a day Active Timolol Maleate 0.5 % 1 drop into affect ed eye Ophthalmic Once a day Active Dulcolax (colon prep) 5 MG take at 3:00 p.m and 7:00p.m. Orally two tablets twice a day for one day for 1 day 11/12/2022 Active Aspirin 81 MG 1 tablet Orally Once a day Active Dulcolax (colon prep) 5 MG take at 3:00 p.m and 7:00p.m. Orally two tablets twice a day for one day for 1 day 11/12/2022 Active Triamcinolone Acetonide 0.1 % 1 application Externally Two times a Week Active MiraLax (colon prep) 17 GM/SCOOP 1 238 GM bottle mixed with Gatorade or Crystal Light Orally begin at 5:00 p.m. the day before the procedure for 1 day 11/12/2022 Active cycloSPORINE 0.05 % 1 drop into affected eye Ophthalmic Twice a day Active IMMUNIZATIONS Vaccine Route Administration Date Status Comme nts Influenza Unknown 05/23/2022 Administered SOCIAL HISTORY Sex Assigned At : Social History Observation Description Sex Assigned At Unknown PROBLEMS Problem Type ICD Code Onset Dates Problem Status W/U Status Risk SNOMED Code Notes Problem Encounter for screening for malignant neoplasm of colon (Z12.11) Active confirmed 422822850 Problem History of adenomatous polyp of colon (Z86.010) Active confirmed 607033245 Problem Diverticulosis of large intestine without perforation or abscess without bleeding (K57.30) Active confirmed Diverticul ar disease of colon (113495482) Problem Encounter for screening for malignant neoplasm of rectum (Z12.12) Active confirmed Screening fo r malignant neoplasm of rectum (964648658) Problem Preprocedural examination (Z01.818) Active confirmed 781066313788406 Problem Long-term use of aspirin therapy (Z79.82) Active confirmed 639614528 PLAN OF TREATMENT Future Test Test Name Order Date COLONOSCOPY 06/18/2016 COLONOSCOPY 11/12/2022 Insurance Providers Payer Name Payer Address Payer Phone Subscriber Number Group Number Insured Name Patient Relationship to Insured Coverage Start Date Coverage End Date [facility] [employer] [address] [place] [address] [id number] MARILEE AYON Self - patient is the insured MEDICAL (GENERAL) HISTORY Medical History History ICD Code 6-15-2010 and 2005 colonosco pies--tubular adenomas removed, mild sigmoid diverticulosis, small internal hemorrhoids Hyperlipidemia Denies [place],DM,CVA,Lung disease,renal dise ase Eyedrops for corneal transplant COVID 2019 Negative colonoscopy 08/2016 Kidney stones Surgical History Surgery Date(Month/Year) Corneal transplant x 2--right eye Tonsils
--- OUTSIDE RECORDS SUMMARY | 2024-11-23 08:11 | XMS_ITS ---
Author Name [facility] [place] Address [address] [place] [address] Care Team Providers Care Senior Web Engineer Name Role Phone SHREYA SIMPSON Primary Care [...] MANOHAR MEDEX BRONZ E Aug [birth year], 2007 [id number] AAYUSH AYON PATIENT [place] MED[place] SUPPLEMEN MANOHAR MEDEX BRONZ E Aug 22, 2007 [id number] BURKEIADRAAYUSH DAS T PATIENT BCBS [place] MED[place] SUPPLEMEN MANOHAR MEDEX BRONZ E Aug 22, 2007 [id number] [phone] BURKEIADRAAYUSH DAS PATIENT BCBS OF [facility] MEDICARE SUPPLEMEN MANOHAR PSUED O MEDEX BRONZ E Aug 22, 2007 [id number] [phone] BURKEIADRAAYUSH DAS PATIENT MEDICARE (WNR) MEDICARE (M) PART B Aug 22, 2007 PART B [id number] [phone] MASCIADRE LLI,AAYUSH T PATIENT MEDICARE (WNR) MEDICARE () PART B Aug 22, 2007 PART B [id number] MASCIADRE LLI,AAYUSH T PATIENT MEDICARE (WNR) MEDICARE () PART A Aug 22, 2007 PART A [id number] [phone] MASCIADRE LLI,AAYUSH T PATIENT MEDICARE (WNR) MEDICARE () PART A Aug 22, 2007 PART A [id number] MASCIADRE LLI,AAYUSH T PATIENT MEDICARE (WNR) MEDICARE () PART B Aug 22, 2007 PART B [id number] MASCIADRE LLI,AAYUSH T PATIENT MEDICARE (WNR) MEDICARE () PART A Aug 22, 2007 PART A [id number] BURKEIADRE LLI,AAYUSH Gore PATIENT Selected Encounter This section includes the information on record at [place] for the Encounter. Date/Time Encounter Type Encounter Description Reason Provider Source May 17, 2024 09:00 AM OFFICE O/P EST MOD 30 MIN PRIMARY CARE/MEDICINE ICD-10-CM J30.2 Other seasonal allergic rhinitis CALVIN,SHREYA GERRY E Encounter Template Text not used by [place] Assessments - Encounter Diagnoses This section includes the primary and secondary diagnoses documented for the Encounter. 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 This section includes future appointments and future orders which are active, pending or scheduled. Future Appointments This section includes appointments that were scheduled to occur 6 months from the date of the Encounter, up to a maximum of 20 appointments. The data comes from all [place] treatment facilities. Appointment Date/Time Appointment Type Appointme nt Facility Name May 18, 2024 09:00 AM AMBULATORY - MEDICINE [place] [facility] [place] [facility] Jun 15, 2024 01:00 PM AM[place]UL[place]ORY [place]ICINE [place] [facility] [facility] Jun 17, 2024 09:30 AM [place]ORY [place]ICINE [place] [facility] [facility] Jun 22, 2024 02:15 PM AMBULATORY - [facility] [place] [facility] Jul 09, 2024 09:30 AM [place]ORY [place]ICINE [place] [facility] [facility] Jul 09, 2024 09:31 AM [place]ORY [place]ICINE [place] [facility] [place] [facility] Aug 13, 2024 01:00 PM AM[place]UL[place]ORY [place]ICINE [place] [facility] [place] [facility] Oct 13, 2024 01:00 PM [facility] Active, Pending, and Scheduled Orders This section includes a listing of several types of active, pending, and scheduled orders, including clinic medications orders, diagnostic test orders, procedure orders and consult orders; where the start date of the order is 45 days before the date of the Encounter or 45 days after the date of theEncounter. The data comes from all [place] treatment facilities. Test Date/Time Test Type Test Details Facility Name May 17, 2024 12:00 AM Laboratory - Chemi stry Order PSA BLOOD (SST-SERUM) SP [facility] Jun 17, 2024 03:49 PM Consult Order COMMUNITY CARE-OPHTHALMOLOGY Cons Slot Machine Department Floorperson's Choice [facility] Lab Results: +/- 30 days of the encounter This section includes the Chemistry and Hematology Lab Results on record with [place] for the patient. Radiology Reports and Pathology Reports are provided separately, in subsequent sections. Lab Results This section contains the Chemistry/Hematology Results that were resulted 30 days before or 30 daysafter the date of the Encounter. Date/Time Source Result Type Result - Unit Interpretation Reference Range Comment May 12, 2024 09:27 AM [facility] HEMOGLOBIN A1C PANEL Specimen Type: BLOOD Comment: Values obtained from A1C measurements can vary. For atypical A1C assays, a reported value of 7.0 could actually be between 6.72 and 7.28 if measured by a reference method. A reported value of 9.0 could actually be between 8.73 and 9.27. Ref: http://www.ngs p.org/CAPdata. asp Ordering Provider: SHREYA SIMPSON Report Released Date/Time: May 05, 2024 02:45 PM Reporting Lab: [address] [address] Performing Lab: [address] [address] HEMOGLOBIN A1C 5.5 4.0-5.6 May 12, 2024 09:27 AM [facility] LIPID PANEL FASTING Specimen Type: SERUM No comment entered. Ordering Provider: SHREYA SIMPSON Report Released Date/Time: May 05, 2024 02:44 PM Reporting Lab: [address] [address] Performing Lab: [address] [address] CHOLESTEROL 236 mg/dL H TRIGLYCERIDE 176 mg/dL H 0-150 LDL calculated 151 mg/dL H 0-129 CHOL/HDL 4.7 HDL CHOLESTEROL 50 mg/dL 40-60 May 12, 2024 09:27 AM [facility] LIVER FUNCTION Specimen Type: SERUM No comment entered. Ordering Provider: SHREYA SIMPSON Report Released Date/Time: May 05, 2024 02:45 PM Reporting Lab: [address] [address] Performing Lab: [facility] [place] [facility] [address] [facility] [address] PROTEIN,TOTAL 7.2 g/dL 6.0-8.3 ALBUMIN 4.1 g/dL 3.5-5.0 ALKALINE PHOSPHATASE 52 U/L 40-150 AST 22 U/L 5-34 ALT 22 U/L BILIRUBIN, TOTAL 0.5 mg/dL 0.2-1.2 Vital Signs: All taken on the encounter date This section contains inpatient and outpatient Vital Signs collected on the date of the Encounter. Date/Time Temperature Pulse Blood Pressure Respiratory Rate SP02 Pain Height Weight Body Mass Index Source May 17, 2024 08:54 AM 97.4 53 136/76 14 99 0 177.7 30 [facility] [place] [facility] Social History: Smoking Status (Most current) and Tobacco Use (All prior to encounter date) This section includes the most current, and the historical, smoking and tobacco- related health factors from the [place] facility where the Encounter took place. Current Smoking Status This section includes the most current smoking, or tobacco-related health factor, from the [place] facility where the Encounter took place. Date/Time Current Smoking Status Comment Facil ity January 23, 2024 10:00 AM VA-TOBACCO NEVER USED [place] [facility] [facility] Tobacco Use History This section includes a history of the smoking, or tobacco-related health factors, that were collected on or before the date of the Encounter. The data comes from the [place] facility where the Encounter took place. Date/Time Smoking Status/Tobacco Use Comment F acility Dec 11, 2022 09:30 AM VA-TOBACCO NEVER USED [facility] [place] [facility] Dec 28, 2021 09:00 AM VA-TOBACCO NEVER USED [facility] [place] [facility] Oct 02, 2020 11:00 AM VA-TOBACCO NEVER USED [facility] [place] [facility] Aug 18, 2018 10:48 AM VA-TOBACCO NEVER USED [facility] [place] [facility] Dec 08, 2017 08:55 AM LIFETIME NON-TOBACCO USER [facility] [place] [facility] Nov 28, 2016 10:51 AM LIFETIME NON-TOBACCO USER [facility] [place] [facility] Encounter Notes: All associated encounter notes This section contains the clinical notes associated to the Encounter. Date/Time Encounter Note(s) Provider Source May 17, 2024 08:59 AM PRIMARY CARE NURSE PRACTITIONER OUTPATIENT NOTE: LOCAL TITLE: NURSE PRACTITIONER OUTPATIENT NOTE STANDARD TITLE: PRIMARY CARE NURSE PRACTITIONER OUTPATIENT NOTE DATE OF NOTE: MAY 17, 2024@08:59 ENTRY DATE: MAY 17, 2024@08:59:11 AUTHOR: SHREYA SIMPSON EXP COSIGNER: URGENCY: STATUS: COMPLETED Pt is a 83 who comes in for follow up of medical problems as noted below. HPI: Glaucoma and Corneal transplants x2 with [facility]. [facility] 6 months for routine eye care takes multiple eye drops timolol and tafluprost, also on Compounded Cyclosporin and has eye Lense all through [facility] Continues to do well Likes to have PSA checked annually he knows no need to cont. routine screening but requests it HLD Mixed Hyperlipidemia: takes fenofibrate 48mg tabs PO daily as well Ezetimibe 10mg tabs PO daily. His LDL has hovered around 130s-150s at one point was up closer to 190s in past, cannot take statins cause too many myalgias and weakness, Fatty liver had fibro scan and was following with Hepatology BPs well controlled and trying to keep WT down PMH: Active problems - Computerized Problem List [...] corneal transplant x 2. Last done 08/14/2010 [facility]. 10. Open-angle glaucoma of right eye (SNOMED CT [id number]) 11. 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 H/O: surgery s/p right corneal transplant Jul 2010; 13. H/O: surgery s/p tonsillectomy in childhood; 14. Dyslipidemia Allergies: ROSUVASTATIN, LIPITOR, BRIMONIDINE The following VA and Non-VA meds were reconciled with patient: Active and Recently Outpatient Medications (excluding Supplies): Active Outpatient Medications Status 1) ASPIRIN 81MG EC TAB TAKE ONE TABLET BY MOUTH ONCE ACTIVE DAILY TO PREVENT STROKE/HEART ATTACK 2) EZETIMIBE 10MG TAB TAKE ONE TABLET BY MOUTH ONCE ACTIVE (S) DAILY TO LOWER CHOLESTEROL 3) FENOFIBRATE 48MG [...] ACTIVE INTO THE RIGHT EYE TWICE DAILY Inactive Outpatient Medications Status 1) SODIUM CHLORIDE 0.9% INHL 5ML USE 3 TO 4 VIALS ONCE DAILY DIRECTED BY PROVIDER IN OPHTHALMIC PROSTHETIC DEVICE Active Non-VA Medications Status 1) Non-VA ASPIRIN 81MG EC TAB 81MG BY MOUTH ONCE DAILY ACTIVE 2) Non-VA CYCLOSPORINE 0.05% (PF) OPH EMUL 0.4ML 1 DROP ACTIVE ONCE DAILY 9 Total Medications Allergies: ROSUVASTATIN, LIPITOR, BRIMONIDINE VITAL SIGNS: 97.4 F [36.3 C] (05/17/2024 08:54) 53 (05/17/2024 08:54) 14 (05/17/2024 08:54) 136/76 (05/17/2024 08:54) 0 (05/17/2024 08:54) 65 in [165.1 cm] (10/28/2022 09:02) 177.7 lb [80.60 kg] (05/17/2024 08:54) BMI: 29.6 ROS General: no fever, no unexplained weight loss or gain CV: denies CP, palpitations Lung: denies Dyspnea or wheezing Abd: denies n/v/d : denies dysuria, penile d/c, hematuria Ext: denies edema Psych: denies SI Neuro: denies dizziness, falls, CASTELLON PHYSI THOMAS EXAM GENERAL: well appearing [place] in NAD, speaking in clear sentences. SKIN: Clean, dry intact no rashes , lesions or nodules observed. HEENT: PERRLA, EOMIs, TMs intact bilaterally, no lymphadenopathy, no lesions/exudate of posterior pharynx, tongue midline without lesions RESP: CTAB, no wheezing or Rales. 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 timolol, tafluprost, Compounded Cyclosporin #HLD -Mixed Hyperlipidemia -Cannot tolerate statins -Cont. fenofibrate 48mg -Cont. Ezetimibe 10mg tabs PO daily -Stay on current reg for now, monitor LDL #Fatty liver -Follows with Hepatology -Abdominal U/S, MRI Abd w and w/o contrast showing steatosis, hemangiomas in liver plan is to f/u on these with a repeat CT-Scan in 6 months. -Continue to limit/reduce alcohol further and manage weight #Seasonal Allergies -Cont. Zyrtec daily #Dizziness -vestibular rehab consult to r/o possible BPPV Return to clinic to see me in [...] this [facility] (local) and dispensed from another [place] or [facility] facility (remote) as well as inpatient orders [...] provider. /enrrique/ YANE ACEVEDO Nurse Practitioner Signed: 05/17/2024 09:40 SHREYA SIMPSON [place] [facility]
--- OUTSIDE RECORDS SUMMARY | 2024-11-23 08:11 | XMS_ITS ---
Author Name [facility] [place] Address [address] [place] [address] Care Team Providers Care Roughener Name Role Phone SHREYA SIMPSON Primary Care [...] MANOHAR MEDEX BRONZ E Aug 22, 2007 [id number] AAYUSH AYON PATIENT [place] SUPPLEMEN MANOHAR MEDEX BRONZ E Aug 22, 2007 [id number] [phone] BURKEIADRAAYUSH DAS T PATIENT [place] SUPPLE[place] MANOHAR MEDEX BRONZ E Aug 22, 2007 [id number] [phone] BURKEIADRAAYUSH DAS PATIENT BCBS OF [facility] MEDICARE SUPPLEMEN MANOHAR PSUED O MEDEX BRONZ E Aug 22, 2007 [id number] BURKEIADRE LLI,AAYUSH T PATIENT MEDICARE (WNR) MEDICARE (M) PART B Aug 22, 2007 PART B [id number] MASCIADRE LLI,AAYUSH T PATIENT MEDICARE (WNR) MEDICARE (M) PART A Aug 22, 2007 PART A [id number] MASCIADRE LLI,AAYUSH T PATIENT MEDICARE (WNR) MEDICARE (M) PART B Aug 22, 2007 PART B [id number] [phone] MASCIADRE LLI,AAYUSH T PATIENT MEDICARE (WNR) MEDICARE (M) PART A Aug 22, 2007 PART A [id number] MASCIADRE LLI,AAYUSH T PATIENT MEDICARE (WNR) MEDICARE (M) PART B Aug 22, 2007 PART B [id number] MASCIADRE LLI,AAYUSH T PATIENT MEDICARE (WNR) MEDICARE (M) PART A Aug 22, 2007 PART A [id number] MASCIADRE LLI,AAYUSH Gore PATIENT Selected Encounter This section includes the information on record at [place] for the Encounter. Date/Time Encounter Type Encounter Description Reason Provider Source Jul 09, 2024 09:31 AM OFFICE O/P EST LOW 20 MIN PRIMARY CARE/MEDICINE ICD-10-CM J30.2 Other seasonal allergic rhinitis JULIA SUMMERS [facility] Encounter Template Text not used by [place] Assessments - Encounter Diagnoses This section includes the primary and secondary diagnoses documented for the Encounter. Date/Time Primary/Secondary Diagnosis Diagnosis Name Provider Source Jul 23, 2024 01:40 PM PRIMARY Other seasonal allergic rhinitis JULIA SUMMERS [place] [facility] [facility] Plan of Treatment: Future Appointments (+ 6 months) and Future Tests (+/- 45 days) The Plan of Treatment section includes future care activities for the patient from all [place] treatmentfacilities. This section includes future appointments and future orders which are active, pending or scheduled. Future Appointments This section includes appointments that were scheduled to occur 6 months from the date of the Encounter, up to a maximum of 20 appointments. The data comes from all [place] treatment facilities. Appointment Date/Time Appointment Type Appointme nt Facility Name Aug 13, 2024 01:00 PM AMBULATORY - MEDICINE [facility] [place] [facility] Oct 13, 2024 01:00 PM AMBULATORY - SURGERY [facility] Nov 22, 2024 09:00 AM AMBULATORY - MEDICINE [place] [facility] [place] [facility] Dec 29, 2024 09:00 AM AMBULATORY - MEDICINE [facility] Dec 29, 2024 09:30 AM AMBULAT[facility] - MEDIC[facility] Active, Pending, and Scheduled Orders This section includes a listing of several types of active, pending, and scheduled orders, including clinic medications orders, diagnostic test orders, procedure orders and consult orders; where the start date of the order is 45 days before the date of the Encounter or 45 days after the date of theEncounter. The data comes from all [place] treatment facilities. Test Date/Time Test Type Test Details Facility Name Jun 17, 2024 03:49 PM Consult Order COMMUNITY CARE-OPHTHALMOLOGY Cons Ct Scan Technologist's Choice [facility] Vital Signs: All taken on the encounter date This section contains inpatient and outpatient Vital Signs collected on the date of the Encounter. Date/Time Temperature Pulse Blood Pressure Respiratory Rate SP02 Pain Height Weight Body Mass Index Source Jul 09, 2024 09:12 AM 99.2 60 134/80 18 98 2 [facility] Social History: Smoking Status (Most current) and Tobacco Use (All prior to encounter date) This section includes the most current, and the historical, smoking and tobacco- related health factors from the [place] facility where the Encounter took place. Current Smoking Status This section includes the most current smoking, or tobacco-related health factor, from the [place] facility where the Encounter took place. Date/Time Current Smoking Status Comment Facil ity January 23, 2024 10:00 AM [place] Tobacco Use History This section includes a history of the smoking, or tobacco-related health factors, that were collected on or before the date of the Encounter. The data comes from the [place] facility where the Encounter took place. Date/Time Smoking Status/Tobacco Use Comment F acility Dec 11, 2022 09:30 AM [place]-TOBACCO NEVER USED [facility] [place] [facility] Dec 28, 2021 09:00 AM VA-TOBACCO NEVER USED [facility] [place] [facility] Oct 02, 2020 11:00 AM VA-TOBACCO NEVER USED [facility] [place] [facility] Aug 18, 2018 10:48 AM VA-TOBACCO NEVER USED [facility] [place] [facility] Dec 08, 2017 08:55 AM LIFETIME NON-TOBACCO USER [facility] [place] [facility] Nov 28, 2016 10:51 AM LIFETIME NON-TOBACCO USER [facility] [place] [facility] Encounter Notes: All associated encounter notes This section contains the clinical notes associated to the Encounter. Date/Time Encounter Note(s) Provider Source Jul 09, 2024 09:36 AM PHYSICIAN ROUGHENER NOTE: LOCAL TITLE: FRANSICO SLOAN STANDARD TITLE: PHYSICIAN ROUGHENER NOTE DATE OF NOTE: JUL 09, 2024@09:36 ENTRY DATE: JUL 09, 2024@09:37:02 AUTHOR: JULIA SUMMERS EXP COSIGNER: URGENCY: STATUS: COMPLETED SICK CALL VISIT HPI: 83 year old male with below noted PMHx presents for 2 days of nasal congestion and sinus pressure without fever, CASTELLON, vision changes or ear pain. He has some dry throat irritation. No discharge. No cough but frequently clearing of throat. No ear pain. No CP/Cough or chest congestion. Using Flonase. No change. REVIEW OF SYSTEMS: A 12 point review of systems is negative except as noted in the HPI. 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 11/28/2016 LYUBOV RICHARD Open-angle glaucoma of right eye (S 10/15/2019 MALINDA AVILA H/O: surgery 799.9 07/21/2014 GEMA MAO H/O: surgery 799.9 07/21/2014 GEMA MAO Dyslipidemia E78.5 10/02/2020 MAT COSTA Meds: Active Outpatient Medications (including Supplies): ASPIRIN 81MG EC TAB TAKE ONE TABLET BY MOUTH ONCE DAILY TO ACTIVE PREVENT STROKE/HEART ATTACK CARBOXYMETHYLCELLULOSE 1% OPH GEL 0.4ML APPLY 1 DROP INTO ACTIVE EACH EYE SIX TIMES A DAY NEEDED FOR DRY EYE CETIRIZINE HCL 5MG TAB TAKE ONE TABLET BY MOUTH ONCE DAILY PENDING FOR ALLERGIES EZETIMIBE 10MG TAB TAKE ONE TABLET BY MOUTH ONCE DAILY TO ACTIVE LOWER CHOLESTEROL FENOFIBRATE 48MG TAB TAKE ONE TABLET BY MOUTH ONCE DAILY ACTIVE FOR HIGH CHOLESTEROL FLUOROMETHOLONE 0.25% OPH SUSP INSTILL 1 DROP INTO THE ACTIVE RIGHT EYE EVERY DAY FLUTICASONE PROP 50MCG 120D NASAL INHL INSTILL 1 SPRAY PENDING INTO EACH NOSTRIL TWICE DAILY SODIUM CHLORIDE 0.65% SOLN NASAL SPRAY INSTILL 1 SPRAY PENDING INTO EACH NOSTRIL TWICE DAILY TAFLUPROST 0.0015% OPH SOLN INSTILL 1 DROP INTO THE RIGHT ACTIVE (S) EYE AT BEDTIME TIMOLOL MALEATE 0.5% OPH SOLN 0.3ML INSTILL 1 DROP INTO ACTIVE THE RIGHT EYE TWICE DAILY Non-VA ASPIRIN 81MG EC TAB 81MG BY MOUTH ONCE DAILY ACTIVE Non-VA CYCLOSPORINE 0.05% (PF) OPH EMUL 0.4ML 1 DROP ONCE ACTIVE DAILY Allergies: ROSUVASTATIN, LIPITOR, BRIMONIDINE Date Vital Measurement Qualifiers 07/09/2024 09:12 Temp F (C) 99.2 (37.3) Pulse 60 Respir 18 BP 134/80 Pain 2 POx (L/Min)(%) 98 At Rest FOCUSED EXAMINATION GEN: WD NON-TOXIC HEENT: NC/AT PERRLA/EOMI/ANICTERIC OP: PATENT, UVULA MIDLINE, No E/E/E EAC'S Patent bilaterally TM'S Clear, no perf bilaterally NARES: Very pale and boggy nasal mucosa with clear rhinorrhea noted. NECK: Supple, no LAD RESP: Even/reg MDM: No clinical evidence of acute bacterial infection. Resume Zyrtec, use Flonase and saline nasal spray as directed. Avoid irritant if known. Increase fluids. OTC lozenges for dry throat. RTC persists/worsens. F/U PCP as scheduled/PRN ASSESSMENT/PLAN Seasonal allergy as above Arabi able to verbalize understanding of plan of care and agrees. >> MEDICATIONS Reviewed and reconciled with Arabi /es/ JULIA PHILLIPS, MS,PA-C PHYSICIAN ROUGHENER Signed: 07/09/2024 09:43 JULIA SUMMERS [place] [facility]
--- OUTSIDE RECORDS SUMMARY | 2024-11-23 08:11 | XMS_ITS | Encounter Summary ---
Author Name [facility] [place] [facility] [place] Address [address] [place] [address] Care Team Providers Care Manager Of Corporate Name Role Phone SHREYA SIMPSON Primary Care [...] MANOHAR MEDEX BRONZ E Aug 22, 2007 [id number] AAYUSH AYON [place]IENT [place] MANOHAR MEDEX BRONZ E Aug 22, 2007 [id number] [phone] BURKEIADRAAYUSH DAS T [place] MANOHAR MEDEX BRONZ E Aug 22, 2007 [id number] BURKEIADRAAYUSH DAS PATIENT BCBS OF [facility] MEDICARE SUPPLEMEN MANOHAR PSUED O MEDEX BRONZ E Aug 22, 2007 [id number] [phone] BURKEIADRAAYUSH DAS PATIENT MEDICARE (WNR) MEDICARE (M) PART B Aug 22, 2007 PART B [id number] MASCIADRE LLI,AAYUSH T PATIENT MEDICARE (WNR) MEDICARE () PART B Aug 22, 2007 PART B [id number] MASCIADRE LLI,AAYUSH T PATIENT MEDICARE (WNR) MEDICARE () PART A Aug 22, 2007 PART A [id number] [phone] MASCIADRE LLI,AAYUSH T PATIENT MEDICARE (WNR) MEDICARE () PART A Aug 22, 2007 PART A [id number] [phone] MASCIADRE LLI,AAYUSH T PATIENT MEDICARE (WNR) MEDICARE () PART B Aug 22, 2007 PART B [id number] [phone] MASCIADRE LLI,AAYUSH T PATIENT MEDICARE (WNR) MEDICARE () PART A Aug 22, 2007 PART A [id number] [phone] BURKEIADRE LLI,AAYUSH Gore PATIENT Selected Encounter This section includes the information on record at [place] for the Encounter. Date/Time Encounter Type Encounter Description Reason Provider Source May 18, 2024 09:00 AM OFFICE O/P EST MOD 30 MIN DERMATOLOGY ICD-10-CM L82.1 Other seborrheic keratosis ELMIRA CRONIN Encounter Template Text not used by [place] Assessments - Encounter Diagnoses This section includes the primary and secondary diagnoses documented for the Encounter. Date/Time Primary/Secondary Diagnosis Diagnosis Name Provider Source Jun 03, 2024 12:45 PM PRIMARY Other seborrheic keratosis CHRISTIANNE CRONIN [facility] [place] [facility] Jun 03, 2024 12:45 PM SECONDARY Dermatitis, unspecified CHRISTIANNE CRONIN [facility] [place] [facility] Jun 03, 2024 12:45 PM SECONDARY Hemangioma of skin and subcutaneous tissue CHRISTIANNE CRONIN [facility] [place] [facility] Jun 03, 2024 12:45 PM SECONDARY Nevus, non-neoplastic CHRISTIANNE CRONIN [facility] [place] [facility] Jun 03, 2024 12:45 PM SECONDARY Other melanin hyperpigmentation [facility] Plan of Treatment: Future Appointments (+ 6 months) and Future Tests (+/- 45 days) The Plan of Treatment section includes future care activities for the patient from all [place] [facility]. This section includes future appointments and future orders which are active, pending or scheduled. Future Appointments This section includes appointments that were scheduled to occur 6 months from the date of the Encounter, up to a maximum of 20 appointments. The data comes from all [facility]. Appointment Date/Time Appointment Type Appointme nt Facility Name Jun 15, 2024 01:00 PM AMBULATORY - MEDICINE [facility] Jun 17, 2024 09:30 AM AMBULATORY - MEDICINE [facility] Jun 22, 2024 02:15 PM [facility] Jul 09, 2024 09:30 AM [facility] Jul 09, 2024 09:31 AM AMBULATORY - MEDICINE [facility] Aug 13, 2024 01:00 PM AMBULATORY - MEDICINE [facility] Oct 13, 2024 01:00 PM [facility] Active, Pending, and Scheduled Orders This section includes a listing of several types of active, pending, and scheduled orders, including clinic medications orders, diagnostic test orders, procedure orders and consult orders; where the start date of the order is 45 days before the date of the Encounter or 45 days after the date of theEncounter. The data comes from all [facility]. Test Date/Time Test Type Test Details Facility Name May 17, 2024 12:00 AM Laboratory - Chemi stry Order PSA BLOOD (SST-SERUM) [facility] Jun 17, 2024 03:49 PM Consult Order COMMUNITY CARE-OPHTHALMOLOGY Cons Mat Repairer's Choice [facility] Lab Results: +/- 30 days of the encounter This section includes the Chemistry and Hematology Lab Results on record with [place] for the patient. Radiology Reports and Pathology Reports are provided separately, in subsequent sections. Lab Results This section contains the Chemistry/Hematology Results that were resulted 30 days before or 30 daysafter the date of the Encounter. Date/Time Source Result Type Result - Unit Interpretation Reference Range Comment May 12, 2024 09:27 AM [facility] HEMOGLOBIN A1C PANEL Specimen Type: BLOOD [...] May 05, 2024 02:45 PM Reporting Lab: [address] [id number] Performing Lab: [address] [phone] HEMOGLOBIN A1C 5.5 4.0-5.6 May 12, 2024 09:27 AM [facility] LIPID PANEL FASTING Specimen Type: SERUM No comment entered. Ordering Provider: SHREYA SIMPSON Report Released Date/Time: May 05, 2024 02:44 PM Reporting Lab: [address] [address] Performing Lab: [address] [address] CHOLESTEROL 236 mg/dL H TRIGLYCERIDE 176 mg/dL H 0-150 LDL calculated 151 mg/dL H 0-129 CHOL/HDL 4.7 HDL CHOLESTEROL 50 mg/dL 40-60 May 12, 2024 09:27 AM [facility] LIVER FUNCTION Specimen Type: SERUM No comment entered. Ordering Provider: SHREYA SIMPSON Report Released Date/Time: May 05, 2024 02:45 PM Reporting Lab: [address] [address] Performing Lab: [address] [address] PROTEIN,TOTAL 7.2 g/dL 6.0-8.3 ALBUMIN 4.1 g/dL 3.5-5.0 ALKALINE PHOSPHATASE 52 U/L 40-150 AST 22 U/L 5-34 ALT 22 U/L BILIRUBIN, TOTAL 0.5 mg/dL 0.2-1.2 Social History: Smoking Status (Most current) and Tobacco Use (All prior to encounter date) This section includes the most current, and the historical, smoking and tobacco- related health factors from the [place] facility where the Encounter took place. Current Smoking Status This section includes the most current smoking, or tobacco-related health factor, from the [place] facility where the Encounter took place. Date/Time Current Smoking Status Comment Facil ity January 23, 2024 10:00 AM VA-TOBACCO NEVER USED [place] [facility] [place] [facility] Tobacco Use History This section includes a history of the smoking, or tobacco-related health factors, that were collected on or before the date of the Encounter. The data comes from the [place] facility where the Encounter took place. Date/Time Smoking Status/Tobacco Use Comment F acility Dec 11, 2022 09:30 AM VA-TOBACCO NEVER USED [facility] [place] [facility] Dec 28, 2021 09:00 AM VA-TOBACCO NEVER USED [facility] [place] [facility] Oct 02, 2020 11:00 AM VA-TOBACCO NEVER USED [facility] [place] [facility] Aug 18, 2018 10:48 AM VA-TOBACCO NEVER USED [facility] [place] [facility] Dec 08, 2017 08:55 AM LIFETIME NON-TOBACCO USER [facility] [place] [facility] Nov 28, 2016 10:51 AM LIFETIME NON-TOBACCO USER [facility] [place] [facility] Encounter Notes: All associated encounter notes This section contains the clinical notes associated to the Encounter. Date/Time Encounter Note(s) Provider Source May 18, 2024 09:13 AM DERMATOLOGY OUTPATIENT NOTE: LOCAL TITLE: DERMATOLOGY CLINIC NOTE STANDARD TITLE: DERMATOLOGY OUTPATIENT NOTE DATE OF NOTE: MAY 18, 2024@09:13 ENTRY DATE: MAY 18, 2024@09:13:23 AUTHOR: DEBRA CRONIN EXP COSIGNER: URGENCY: STATUS: COMPLETED MAY 18, 2024 MARILEE MARTINEZ Sep 83 PATIENT PHONE - Patient here for ANNUAL FOLLOW UP CHIEF COMPLAINT: Dermatitis [per history] HPI: Reviewed records from last Dermatology visit: 05/20/23 reports a lesion on L upper leg that is more crusty than before. [place] denies any other new/changing/bleeding/non-heali ng lesions. REVIEW OF SYSTEMS: Constitutional-neg Skin/Hair/Nails-see HPI DermHx: Denies h/o MM or NMSC Family Hx: Denies known h/o MM PastMedHx: Reviewed. History of Sun Exposure/Sunburns: Denies h/o significant sun landeros or prior tanning bed use. Active Outpatient Medications (including Supplies): Active Outpatient [...] DROP ACTIVE ONCE DAILY 8 Total Medications PHYSICAL EXAM: [place] Skintype II General-AxOx3, NAD, pleasant, breathing unlabored, speech clear Cutaneous examination, as permitted by the patient, including scalp, face, eyes, ears, neck, chest, back, abdomen, arms, hands, fingers, legs Pertinent findings per below: -Multiple scattered stuck-on appearing waxy garrido and brown papules and plaques with noted milia-like cysts, comedo-like openings and fissures/ridges on dermoscopy [lesion of concern] -Scattered uniformly pigmented light garrido and brown jagged macules in sun distributed areas. -Scattered starr-red dome shaped papules on chest/back with noted lacunae and septae noted on dermoscopy -Multiple scattered symmetrical evenly pigmented brown macules and papules, most under 6mm. Diagnosis/Plan: #Seborrheic Keratoses: -The was educated regarding the benign nature, but to return with any growth, change or symptoms in area. #Benign Appearing Nevi: -ABCDEs of melanotic lesions discussed, self examinations encouraged -No concerning lesions today on examination -A full body skin check is recommended yearly -Photoprotection discussed. #Solar Lentigines -The was educated regarding the benign nature and relation to chronic sun exposure, but to return with any growth, change or symptoms in area. -Photoprotection discussed. #Starr Angiomas: -The was educated regarding the benign nature, but to return with any growth, change or symptoms in area. #Dermatitis, unspecified - per history - quiescent at present. RTC 1 yr PRN * educated to RTC ozzy if any new, changing, symptomatic lesions. * Education on sun protection and avoidance strategies was provided. * Differential diagnosis, prescription options and risks/benefits were discussed with the patient, who consented to treatment plan. * consented to photography for documentation if indicated. * A dermatoscope was used during the exam. * NUB = Neoplasm of Uncertain Behavior of Skin ------TIME ESTIMATION To include but not limied to: -Review of medical records -Time spent with patient including obtaining history, physical exam, shared decision making, procedures and counseling -Post visit documentation; HPI and physical exam findings, clinical researching, medical decision making, medication and lab ordering Total estimated time = 30 min -- Medication Reconciliation: Outpatient: Has the patient been taking medications as documented in the EMLR? YES: The patient has been taking medications as documented in the EMLR. Essential Medication List for Review used to complete this medication reconciliation. INCLUDED IN THIS LIST: Alphabetical list of active outpatient prescriptions dispensed from this [place] (local) and dispensed from another [place] or [facility] facility (remote) as well as inpatient orders [...] next appointment, whether with a [place] or non[place] provider. JLV Link Data on this list may not be complete. Please check [employer]. Allergies/ADRs (Tool #5) FACILITY ALLERGY/ADR -------- [facility] ATORVASTATIN [facility] BRIMONIDINE [facility] ROSUVASTATIN [place] [facility] [place] [facility] BRIMONIDINE [place] [facility] [place] [facility] LIPITOR [place] [facility] [place] [facility] ROSUVASTATIN Med Recon NoGlossary (Tool #1) INCLUDED IN THIS LIST: Alphabetical list of active outpatient prescriptions dispensed from this [place] (local) and dispensed from another [place] or [facility] facility (remote) as well as inpatient orders (local pending and active), local clinic medications, locally documented non-VA medications, and local prescriptions that have or been discontinued in the past 90 days. Non-VA Meds Last Documented On: May 06, 2023 NOTE The display of VA prescriptions dispensed from another [place] or [facility] facility (remote) is limited to active outpatient prescription entries matched to National Drug File at the originating site and may not include some items such as investigational drugs, compounds, etc. NOT INCLUDED IN THIS LIST: Medications self-entered by the patient into personal health records (i.e. [employer]) are NOT included in this list. Non-VA medications documented outside this [place], remote inpatient orders (regardless of status) and remote clinic medications are NOT included in this list. The patient and provider must always discuss medications the patient is taking, regardless of where the medication was dispensed or obtained. Non-VA ASPIRIN 81MG EC TAB TAKE ONE TABLET BY MOUTH ONCE DAILY OUTPT ASPIRIN 81MG EC TAB (Status = Active) TAKE ONE TABLET BY MOUTH ONCE DAILY TO PREVENT STROKE/HEART ATTACK Rx# [id number] Last Released: 01/23/24 Qty/Days Supply: Rx Expiration Date: 01/23/25 Refills Remainin Indication: FOR RISK REDUCTION Remote CARBOXYMETHYLCELLULOSE NA 1% GEL,OPH 0.4ML INSTILL 1 DROP (PF 1%) INTO EACH EYE FOUR TIMES A DAY FILLING BOWL OF SCLERAL LENSES Last Filled: 03/18/24 (Active at [facility]) Rx Expiration Date: 03/18/25 Days Supply: 30 OUTPT CETIRIZINE HCL 10MG TAB (Status = ) TAKE ONE TABLET BY MOUTH ONCE DAILY FOR ALLERGIES Rx# [id number] Last Released: 02/26/23 Qty/Days Supply: Rx Expiration Date: 02/21/24 Refills Remainin Remote CONTACT LENS CLEANING (CLEAR CARE) SOLN SMALL AMOUNT DIRECTED BY PROVIDER NIGHTLY FOR CONTACT LENS USE NIGHTLY FOR DISINFECTING SCLERAL LENSES Last Filled: 03/18/24 (Active at [facility]) Rx Expiration Date: 03/18/25 Days Supply: 30 Remote CONTACT LENS SOLN (GARRISON SIMPLUS) (SIMPLUS) DIRECTED BY PROVIDER EVERY DAY FOR CONTACT LENS Last Filled: 04/04/24 (Active at [facility]) Rx Expiration Date: 03/18/25 Days Supply: 30 Non-VA CYCLOSPORINE 0.05% (PF) OPH EMUL 0.4ML INSTILL 1 DROP right eye ONCE DAILY Medication prescribed by Non-VA provider. nonte: 0.5% cyclosporine specialty compounded for corneal transplant status OUTPT EZETIMIBE 10MG TAB (Status = Active/Suspended) TAKE ONE TABLET BY MOUTH ONCE DAILY TO LOWER CHOLESTEROL Rx# [id number] Last Released: 04/20/24 Qty/Days Supply: Rx Expiration Date: 01/16/25 Refills Remainin Indication: FOR HIGH CHOLESTEROL OUTPT FENOFIBRATE 48MG TAB (Status = Active) TAKE ONE TABLET BY MOUTH ONCE DAILY FOR HIGH CHOLESTEROL Rx# [id number] Last Released: 03/26/24 Qty/Days Supply: Rx Expiration Date: 01/23/25 Refills Remainin Indication: FOR HIGH CHOLESTEROL OUTPT FLUOROMETHOLONE 0.25% OPH SUSP (Status = Active) INSTILL 1 DROP INTO THE RIGHT EYE EVERY DAY Rx# [id number] Last Released: 10/20/23 Qty/Days Supply: Rx Expiration Date: 10/13/24 Refills Remainin OUTPT FLUTICASONE PROP 50MCG 120D NASAL INHL (Status = ) INSTILL 2 SPRAYS INTO EACH NOSTRIL ONCE DAILY FOR NASAL IRRITATION/INFLAMMATION Rx# [id number] Last Released: 01/23/24 Qty/Days Supply: 10/21 Rx Expiration Date: 02/22/24 Refills Remainin Indication: FOR NASAL IRRITATION/INFLAMMATION Remote SODIUM CHLORIDE 0.9% INHL 3ML INHALE 1 AMPULE (0.9%) 3ML DIRECTED BY PROVIDER EVERY DAY SCLERAL LENSES Last Filled: 03/17/24 (Active at [facility]) Rx Expiration Date: 03/18/25 Days Supply: 30 OUTPT SODIUM CHLORIDE 0.9% INHL 5ML (Status = ) USE 3 TO 4 VIALS ONCE DAILY DIRECTED BY PROVIDER IN OPHTHALMIC PROSTHETIC DEVICE Rx# [id number] Last Released: 10/16/23 Qty/Days Supply: 400/90 Rx Expiration Date: 05/07/24 Refills Remainin Indication: FOR FILLING OCULAR PROSTHETIC DEVICE OUTPT TAFLUPROST 0.0015% OPH SOLN (Status = Active/Suspended) INSTILL 1 DROP INTO THE RIGHT EYE AT BEDTIME Rx# [id number] Last Released: 05/03/24 Qty/Days Supply: 90/90 Rx Expiration Date: 10/13/24 Refills Remainin Indication: GLAUCOMA OUTPT TIMOLOL MALEATE 0.5% OPH SOLN 0.3ML (Status = Active) INSTILL 1 DROP INTO THE RIGHT EYE TWICE DAILY Rx# [id number] Last Released: 04/28/24 Qty/Days Supply: 180/90 Rx Expiration Date: 10/13/24 Refills Remainin Indication: GLAUCOMA SUPPLIES /enrrique/ DEBRA CRONIN DNP, GROUND SERVICE EQUIPMENT MECHANIC-C NURSE PRACTITIONER Signed: 05/18/2024 09:39 [facility]IN [facility]
[2024-11-23 08:19] LABS: MANUAL DIFF FLAG NO
[2024-11-23 08:51] LABS: Basophils Percent Auto 0.4 % (0-2); Eosinophils Absolute Auto 0.2 X10*3/uL (0.0-0.4); Eosinophils Percent Auto 2.8 % (0-4); Hematocrit 46.1 % (42.0-52.0); Hemoglobin 15.8 g/dl (14.0-18.0); Imm Gran Abs Auto 0.04 X10*3/uL (0.00-0.03); Imm Gran Pct Auto 0.6 % (0.0-0.4); Lymphocytes Absolute Auto 2.5 X10*3/uL (1.2-4.9); Lymphocytes Percent Auto 34.9 % (20-40); Mean Corpuscular HGB Conc 34.3 g/dl (31.0-36.0); Mean Corpuscular Hemoglobin 32.8 pg (27.0-33.0); Mean Corpuscular Volume 95.6 fL (80.0-98.0); Mean Platelet Volume 11.2 fL (9.4-12.4); Monocytes Absolute Auto 0.4 X10*3/uL (0.1-1.2); Monocytes Percent Auto 5.8 % (2-11); Neutrophils Absolute Auto 3.9 x10*3/uL (2.0-8.3); Neutrophils Percent Auto 55.5 % (45-73); Platelet Count 257 X10*3/uL (160-400); Red Blood Count 4.82 X10*6/uL (4.60-5.80); Red Cell Distribution Width 12.6 % (11.0-16.0); White Blood Count 7.1 X10*3/uL (4.8-10.8)
[2024-11-23 09:57] LABS: Alanine Aminotransferase 28 U/L (0-40); Albumin Level 4.1 g/dL (3.5-5.0); Alkaline Phosphatase 52 U/L (39-117); Anion Gap 11 (12-20); Aspartate Amino Transferase 29 U/L (5-37); Bilirubin Total 0.4 mg/dL (0.0-1.0); Blood Urea Nitrogen 16 mg/dL (9-16); Calcium 8.9 mg/dL (8.4-10.2); Carbon Dioxide 27 mmol/L (22-29); Chloride 107 mmol/L (96-108); Cholesterol 223 mg/dL (<200); Estimated Glomerular Filt Rate > 60; Glucose Fasting 118 mg/dL (60-99); HDL Cholesterol 53 mg/dL (>40); LDL Cholesterol Calculated 134 mg/dL (<100); Potassium 4.3 mmol/L (3.3-5.1); Sodium 141 mmol/L (135-145); Total Protein 7.4 g/dL (6.5-8.0); Triglycerides 183 mg/dL (<150)
[2024-11-23 10:03] LABS: Thyroid Stimulating Hormone 1.51 uIU/mL (0.32-4.0)
== END 2024-11-23 08:03 | disposition home or self-care (01) ==
LOC: HO.LAB 08:02
PROVIDERS: PCP Internal Medicine; Visit Provider Internal Medicine
DX: Z13.0 Encounter for screening for diseases of the blood and blood-forming organs and certain disorders involving the immune mechanism (principal); Z13.220 Encounter for screening for lipoid disorders; Z13.29 Encounter for screening for other suspected endocrine disorder; Z13.6 Encounter for screening for cardiovascular disorders
CPT/HCPCS: 36415; 80053; 80061; 84443; 85025

== ENCOUNTER 2024-11-25 09:15 | Outpatient (AMB) | payer MEDICARE, SELFPAY ==
--- NOTE | 2024-11-25 09:20 | A.OFFPC_ITS ---
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 Accompanied by: Self / Same As Patient Allergies brimonidine Allergy (Unknown, Verified 11/25/24 09:25) Swelling lovastatin Allergy (Unknown, Verified 11/25/24 09:25) Muscle cramps rosuvastatin Allergy (Unknown, Verified 11/25/24 09:25) Muscle cramps Medication List - Last Reconciled 11/25/24 by Eliseo Robledo MD aspirin (Adult Low Dose Aspirin) 81 mg PO DAILY cyclosporine 0.05% 1 drp ophthalmic (eye) Q12H dorzolamide-timolol 22.3-6.8 mg/mL 1 drp ophthalmic (eye) BID fenofibrate 160 mg PO DAILY fluorometholone 0.25% (FML Forte) 1 drp ophthalmic-Right Q6H tafluprost (PF) 0.0015% 1 drp ophthalmic (eye) DAILY triamcinolone acetonide 0.1% 1 appl topical BID Tobacco use date assessed: 11/25/24 Fall risk assessment: No Falls in past year Dental Screening Dental Screen Date: 11/25/24 Did you have a dental visit in the last 12 months?: No Did you have a dental problem in the last 6 months where you did not have access to dental care?: No Was dental information given to patient?: Patient has dentist HPI Follow Up HPI Details hyperlipidemia on rx; intolerant of statins; compliant [facility] Medical History Kidney stones Surgical History H/O colonoscopy Corneal transplant status History of tonsillectomy Family History Father Hypertension Parkinsons disease Mother No problems noted. Social History Housing: House Alcohol intake: current Alcohol intake frequency: a few times a week Patient Tobacco Use Status: Never used Tobacco Tobacco use type: Cigarette e-Cigarette/Vaping Use: Never Used Second Hand Smoke Exposure: No service: No Current occupational status: retired Cognitive needs: No Hearing needs: No Vision needs: Yes (contacts) Questionnaire PHQ-9 Over the last 2 weeks, how often have you been bothered by any of the following problems? 1. Little interest or pleasure in doing things: not at all 2. Feeling down, depressed, or hopeless: not at all 3. Trouble falling or staying asleep, or sleeping too much: not at all 4. Feeling tired or having little energy: not at all 5. Poor appetite or overeating: not at all 6. Feeling bad about yourself - or that you are a failure or have let yourself or your family down: not at all 7. Trouble concentrating on things, such as reading the newspaper or watching television: not at all 8. Moving or speaking so slowly that other people could have noticed. Or the opposite - being so fidgety or restless that you have been moving around a lot more than usual: not at all 9. Thoughts that you would be better off or of hurting yourself in some way: not at all Total score: 0 Depression Screening Interpretation: Negative Depression Screening Done: Yes Source: Developed by Drs. Ez Martinez, Nanci Choudhury, Gilberto Becerril and colleagues, with an educational сергей from [employer]. Thrive Questionnaire Date Thrive assessed: 11/25/24 I am a: Patient What is your living situation today?: I have a steady place to live Within the past 12 months, did the food you bought not last and you didn't have the money to get more?: Never true Within the past 12 months, did you worry whether your food would run out before you got money to buy more?: Never true Do you have trouble paying for medicines?: No Do you have trouble getting transportation to medical appointments?: No Do you have trouble paying your heating and electricity bill?: No Do you have trouble taking care of your child, family member or friend?: No Do you have trouble with day-to-day activities such as bathing, preparing meals, shopping, managing finances, etc.?: No Are you currently unemployed and looking for a job?: No Are you interested in more education?: No THRIVE Score: 0 AUDIT C Alcohol Use Questionnaire (AUDIT-C) 1. How often do you have a drink containing alcohol?: 2-3 times a week 2. How many drinks containing alcohol do you have on a typical day when you are drinking?: 1 or 2 3. How often do you have six or more drinks on one occasion?: Never Total Score: 3 AMBER-7 AMB Questionnaire AMBER-7 Date AMBER - 7 assessed: 11/25/24 Feeling nervous, anxious, or on edge: 0 = Not at all Not being able to stop or control worryin = Not at all Worrying too much about different things: 0 = Not at all Trouble relaxin = Not at all Being so restless that it is hard to sit still: 0 = Not at all Becoming easily annoyed or irritable: 0 = Not at all Feeling afraid as if something awful might happen: 0 = Not at all Total AMBER-7 score (0-4 normal; 5-9 mild; 10-14 moderate; 15-21 severe): 0 Source: Developed by Drs. Ez Martinez, Nanci Choudhury, Gilberto Becerril and colleagues, with an educational сергей from [employer]. Review of Systems Const Denies chills, Denies headache(s) and Denies weight loss ENT Denies headache(s) Card Denies chest pain, Denies syncope, Denies irregular heart rhythm and Denies dyspnea Resp Denies chest congestion, Denies cough and Denies dyspnea GI Denies abdominal pain, Denies change in stool character, Denies nausea and Denies vomiting Musc Denies deformity and Denies joint swelling Neuro Denies syncope and Denies headache(s) Physical exam (Primary Care) Vital Signs: Last Vital Signs Temp 97.3 F 11/25/24 09:21 Pulse 56 11/25/24 09:21 Resp 16 11/25/24 09:21 BP 132/80 11/25/24 09:21 Pulse Ox 97 11/25/24 09:21 Oxygen Delivery Method Room Air 11/25/24 09:21 BMI result Body Mass Index 29.5 Tobacco/Smoking Status: Tobacco use Status Tobacco use date assessed 11/24/23 11/25/24 09:20 Patient Tobacco Use Status Never used Tobacco 11/25/24 09:20 Tobacco use type Cigarette 11/25/24 09:20 e-Cigarette/Vaping Use Never Used 11/25/24 09:20 PHQ-9: PHQ-9 Score PHQ-9: Total score 0 11/25/24 09:28 Depression Screening Interpretation: Negative Thrive Assessment: Date of Thrive Assessment Date Thrive assessed 11/24/23 11/25/24 09:20 Const General: cooperative, comfortable, no acute distress and alert Neck Neck: Yes no lymphadenopathy Thyroid: Thyroid normal Resp Effort & Inspection: normal respiratory effort Auscultation: clear to auscultation bilaterally Percussion: percussion normal Cardio Jugular venous distension: no JVD Palpation: normal PMI Rate: regular rate Rhythm: regular rhythm Heart sounds: S1 normal heart sound present and S2 normal heart sound present GI Inspection: Yes normal to inspection Palpation (GI): No hepatosplenomegaly present Skin General skin exam: no rashes or lesions noted Extrem General: Yes no clubbing, cyanosis or edema Coding Level of Care Code Est Pt Level 3 (48751) Diagnoses Hyperlipidemia E78.5 Assessment & Plan Assessment & Plan (1) Hyperlipidemia: Code(s): E78.5 - Hyperlipidemia, unspecified Category: Medical Plan: stable; same rx
[2024-11-25 09:21] VITALS: BP 132/80; PULSE 56; RESP 16; TEMP 36.3; O2SAT 97; BMI 29.5
--- OUTSIDE RECORDS SUMMARY | 2024-11-25 10:15 | XMS_ITS | Patient Health Record ---
Author Organization [facility] Address [address] [place] [id number] Care Team Providers Care End Stapler Name Role Phone Mary Valle Primary Care Provider Li Ez Culver Unavailable [phone] Allergies Allergen (clinical drug ingredient) Drug/Non Drug Allergy documented on EMR Reaction Allergy Type Onset Date Status brimonidine Brimonidine Unknown Drug Allergy Act ching rosuvastatin Rosuvastatin Calcium Unknown Drug Allergy Active atorvastatin Lipitor Unknown Drug Allergy Acti ve Substance with 5-mdtyqja-7-methylglut aryl-coenzyme A reductase inhibitor mechanism of action (substance) statins (uncoded) leg cramps Allergy Active Reason For Referral No Information Medications Medication SIG (Take, Route, Frequency, Duration) Notes [...] affected eye Ophthalmic Twice a day Active Immunizations Vaccine Route Administration Date Status Comme nts Influenza Unknown 05/23/2022 Administered Problems Problem Type SNOMED Code ICD Code Onset Dates Problem Status W/U Status Risk Notes Problem 716189707 Encounter for screening for malignant neoplasm of colon (Z12.11) Active confirmed Problem 132974274 History of adenomatous polyp of colon (Z86.010) Active confirmed Problem 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) Diverticulosis of large intestine without perforation or abscess without bleeding (K57.30) Active confirmed Problem Screening for malignant neoplasm of rectum (347479841) Encounter for screening for malignant neoplasm of rectum (Z12.12) Active confirmed Problem 812044222287295 Preprocedural examination (Z01.818) Active confirmed Problem 157535420 Long-term use of aspirin therapy (Z79.82) Active confirmed Plan Of Treatment Future Test Test Name Order Date COLONOSCOPY 06/18/2016 COLONOSCOPY 11/12/2022 Insurance Providers Payer Name Payer Address Payer Phone Subscriber Number Group Number Insured Name Patient Relationship to Insured Coverage Start Date Coverage End Date [facility] [employer] [address] [place] [address] [id number] MARILEE AYON Self - patient is the insured Medical (General) History Medical History History ICD Code 6-15-2010 and 2005 colonosco pies--tubular adenomas removed, mild sigmoid diverticulosis, small internal hemorrhoids Hyperlipidemia Denies NE,DM,CVA,Lung disease,renal dise ase Eyedrops for corneal transplant COVID 2019 Negative colonoscopy 08/2016 Kidney stones Surgical History Surgery Date(Month/Year) Corneal transplant x 2--right eye Tonsils
== END 2024-11-25 09:53 | disposition home or self-care (01) ==
PROVIDERS: PCP Internal Medicine; Visit Provider Internal Medicine
DX: E78.5 Hyperlipidemia, unspecified (principal)

== ENCOUNTER → 2024-11-25 09:15 | Outpatient (BNVA) | payer MEDICARE, SELFPAY | PROVIDERS: PCP Internal Medicine; Visit Provider Internal Medicine | DX: E78.5 Hyperlipidemia, unspecified (principal) | CPT/HCPCS: 99212 ==